=== PATIENT | female | born 1995 | race Caucasian/White ===

== ENCOUNTER 2017-11-21 06:51 | Emergency (ER) | payer OTHER, SELFPAY ==
[2017-11-21 06:53] VITALS: BP 149/94; PULSE 104; RESP 17; TEMP 36.8; O2SAT 97; BMI 33.7
--- NOTE | 2017-11-21 07:18 | CT_ITS ---
STUDY: CT ABDOMEN AND PELVIS WITHOUT CONTRAST REASON FOR EXAM: Female, 22 years old. Right lower quadrant pain and nausea. RADIATION DOSAGE (If Supplied By Facility): CTDIvol = ( 13.57 ) mGy, DLP = ( 705.27 ) mGycm TECHNIQUE: Transaxial images were obtained from the dome of the diaphragm to the symphysis pubis without oral contrast, and without intravenous contrast. Sagittal and coronal images were reconstructed. Individualized dose optimization techniques were used for this CT. COMPARISON: None. FINDINGS: The visualized lung bases are unremarkable. The visualized portions of the heart are within normal limits. Normal liver. Normal gallbladder and extrahepatic biliary system. Normal spleen. Normal pancreas. Normal bilateral adrenal glands. Normal right kidney. Normal left kidney. There is a small hiatal hernia. Normal small intestine. Normal colon. The appendix is visualized and appears normal. Normal abdominal aorta. Normal inferior vena cava. Normal retroperitoneum. Distended urinary bladder. IUD is seen within the endometrium. Small bilateral benign-appearing inguinal lymph nodes. Normal abdominal wall. Mild levoscoliosis. CT/Abdomen/Pelvis without Cont IMPRESSION: Distended urinary bladder. Electronically Signed: Jasper Clemente MD at 8:24 EDT Tel [phone], Service support ,
[2017-11-21] MEDS: 0.9% Normal Saline 1,000 ML 125 ML IV (07:27)
[2017-11-21 07:28] LABS: Absolute Lymphocyte Count 1.93 X10^3/ul (0.83-4.51); Absolute Neutrophil Count 5.2 X10^3/uL (2.0-7.7); Basophil# 0.02 X10^3/uL; Basophil% 0.3 % (0-1); Eosinophil# 0.32 X10^3/uL; Hematocrit 46.9 % (37-47); Hemoglobin 15.6 g/dl (12.0-15.0); Lymphocyte # 1.93 X10^3/ul (4.0); Lymphocyte % 24.3 % (19-41); Mean Corp Hgb Conc 33.3 g/gl (32-36); Mean Corpuscular Hgb 30.2 pg (27.0-32.0); Mean Corpuscular Volume 90.9 fL (81-99); Mean Platelet Vol. 11.3 fl (6.2-12.0); Monocyte# 0.49 X10^3/uL; Monocyte% 6.2 % (0-10); Neutrophil # 5.16 X10^3/uL (2.7-7.7); Neutrophil % 65.1 % (47-70); Platelet Count 219 K/mm3 (150-450); RBC Distribution Width CV 12.5 % (11.6-14.6); RBC Distribution Width SD 41.5 fl (35.1-43.9); Red Blood Count 5.16 M/mm3 (4.2-5.4); White Blood Count 7.9 K/mm3 (4.4-11.0)
[2017-11-21 07:33] LABS: POSITIVE COUNT NO; POSITIVE DIFFERENTIAL NO; POSITIVE MORPHOLOGY NO
[2017-11-21 07:40] LABS: ALB/GLOB Ratio 1.1 RATIO (0.9-2.4); AST(SGOT) 14 U/L (15-37); Alanine Aminotransfer ALT/SGPT 23 U/L (13-56); Albumin, Serum 4.1 g/dL (3.2-5.0); Alkaline Phosphatase 92 U/L (45-117); Anion Gap 8 (5-15); BUN 11 mg/dL (7-18); BUN/Creat Ratio 18.7 RATIO (10-20); Calcium,Total 8.7 mg/dL (8.5-10.1); Chloride 104 mmol/L (98-107); Creatinine, Serum 0.59 mg/dL (0.55-1.02); EST Glomerular Filtration Rate 134 mL/min (>60); Est Glom Filt Rate - Afr Amer 162 mL/min (>60); Estimated Creatinine Clearance 138.83 ml/min; Globulin 3.7 g/dL (2.2-4.2); Glucose 102 mg/dL (74-106); Protein, Total 7.8 g/dL (6.4-8.2); Sodium Level 139 mmol/L (136-145)
[2017-11-21 07:47] LABS: Pregnancy, Serum, hCG Quali. NEGATIVE Negative (0-9 Nonpreg)
[2017-11-21 08:51] LABS: Bacteria 0 SEEN /hpf (None Seen); Mucous, Urine 0 SEEN /hpf (<or=2+); Red Blood Cells-Urine 0 SEEN /hpf (0-5); White Blood Cells 0 SEEN /hpf (0-5)
[2017-11-21 08:52] LABS: Color, Urine Straw (Yellow); Glucose, Dipstick Normal (Normal); Ketone-Dipstick Negative (Negative); Leukocyte Esterase-Dipstick Negative /ul (Negative); Nitrite-Dipstick Negative (Negative); Occult Blood-Urine Negative /ul (Negative); Protein-Dipstick Negative (Negative); Urine Bilirubin Dipstick Negative (Negative); Urine Clarity Sl. Cloudy (Clear); Urine Urobilinogen Normal (Normal)
[2017-11-21 08:58] LABS: Squamous Epithelial Cells - UA 0-5 SEEN /hpf (5-10)
--- NOTE | 2017-11-21 09:26 | ED.DCSUM_ITS ---
- ER Visit Summary Date of Service: 11/21/17 Chief Complaint: [Abdominal pain] History of Present Illness: The patient is a 22 F [presents to the emergency department with abdominal pain that started initially last evening and was mild. Patient states the pain more severe this morning and she rates her pain a 3 out of 4 currently. Patient has exacerbated patients of the pain intermittently she describes a sharp and stabbing. Patient was able to eat some food this morning and the food did not seem to affect the pain at all. Patient had some nausea but no vomiting. Patient denies any fever or urinary symptoms. Patient does not believe she is and does not have regular periods. Patient does have an IUD.] Physical Examination: [HEENT-PERRLA, EOMI. Cranial nerves II through XII grossly intact. TMs clear. Mucous membranes moist. No adenopathy. Cardiovascular-regular rate and rhythm without murmur or ectopy Lungs-clear to auscultation, chest wall stable without crepitus or subcu emphysema Abdomen-normoactive bowel sounds, soft. Patient has tenderness over the right lower quadrant with some guarding. There is no rebound, rigidity, or perineal signs. Extremities-intact ?4, normal range of motion, normal pulses, atraumatic] Test Results: [CBC with differential showed a white count 7.9, hemoglobin 15.6, hematocrit 47, platelets 319. Chemistries were normal. LFTs were normal. Urinalysis were normal. HCG was negative. CT flank showed nothing acute. Appendix was visualized and appeared normal Emergency Department Course and Treatment: [Patient did not want any pain medication in the emergency department.] Treatment Plan: [Patient advised to use ibuprofen for discomfort.] Disposition: [Discharged to home in stable condition. Patient advised to follow -up with her primary care physician within the next 3-5 days. Patient to return if increasing pain, fever, vomiting, or condition should worsen in any way.] Impression: [Abdominal pain-etiology uncertain] This note was generated with [employer] dictation software. It may contain incorrect words, spelling, and punctuation that were not noted in review of the chart prior to signing ED Disposition - Plan for ED Patient: Chief Complaint: Abd Pain Referrals: Yee Bustamante MD [Primary Care Provider] -
--- NOTE | 2017-11-21 09:26 | ED.DEP ---
ED Disposition - Plan for ED Patient: Chief Complaint: Abd Pain Instructions: ED Abdominal Pain Unkn Cause Referrals: Yee Bustamante MD [Primary Care Provider] - 3-5 Days
[2017-11-21 09:33] VITALS: BP 110/63; PULSE 69; RESP 16; O2SAT 97
== END 2017-11-21 09:34 | disposition home or self-care (01) ==
LOC: ED 07:57
PROVIDERS: Emergency Provider Emergency Medicine; Family Provider Family Medicine; PCP Family Medicine
DX: R10.31 Right lower quadrant pain (principal); Z97.5 Presence of (intrauterine) contraceptive device
CPT/HCPCS: 74176; 80053; 81001; 84703; 85025; 96360; 96361; 99284; J7030; A4216

== ENCOUNTER → 2017-12-02 12:18 | Outpatient (CLI) | payer OTHER, SELFPAY ==
--- NOTE | 2017-12-02 12:20 | US_ITS ---
STUDY: ABDOMINAL ULTRASOUND - RIGHT UPPER QUADRANT REASON FOR VISIT: Female, 22 years old. Right upper quadrant abdominal pain for two weeks. TECHNIQUE: Ultrasound evaluation of the right upper quadrant was performed with real-time and static barclay-scale imaging. TECHNICAL QUALITY: Adequate. COMPARISON: CT of the abdomen and pelvis dated November 21, 2017. FINDINGS: Liver: The liver measures 14.9 cm. There is normal echogenicity of the liver. The bile ducts are within normal limits. There is hepatic color flow. The direction of portal flow is hepatopetal. There is no demonstrated mass lesion. Gallbladder: Normal distended gallbladder. The gallbladder wall measures 2.1 mm. There is a negative sonographic Maxwell's sign. There is no pericholecystic fluid. There is a small polyp measuring 5.4 mm in greatest dimension. No gallstones are visualized. Common Bile Duct (C.B.D.): The common bile duct measures 5.1 mm. Pancreas: The pancreas is only partially visualized. The pancreatic body has a grossly normal appearance. Pancreatic head and tail are not visualized. There is normal echogenicity of the pancreas. There is no demonstrated pancreatic mass or cyst. Right Kidney: Normal size of the right kidney. The right kidney measures 11.6 x 4.1 x 4.4 cm. Normal renal cortex. The right cortex measures 1.6 cm. There is no demonstrated renal mass or cyst. There is no right hydronephrosis. US/Gallbladder IMPRESSION: 1. No sonographic evidence for acute right upper quadrant abdominal disease. 2. Small gallbladder polyp. 3. Incomplete visualization of pancreas. Electronically Signed: Akanksha Zeng MD at 12:50 EDT , Service support ,
== END ==
PROVIDERS: Family Provider Family Medicine; PCP Family Medicine; Visit Provider Family Medicine
DX: R10.11 Right upper quadrant pain (principal)
CPT/HCPCS: 76705

== ENCOUNTER → 2018-01-03 07:50 | Outpatient (CLI) | payer OTHER, SELFPAY ==
--- NOTE | 2018-01-03 07:57 | NM_ITS ---
CLINICAL: 22-year-old female with reported history of right upper quadrant abdominal pain. RADIONUCLIDE HEPATOBILIARY SCINTIGRAPHY COMPARISON: None available FINDINGS: Following the intravenous administration of 5.5 mCi of 99m Tc Mebrofenin, hepatobiliary images reveal: 1. Relatively prompt and homogeneous radiopharmaceutical concentration is noted by a normal sized liver. No parenchymal defects are identified. 2. Gallbladder activity is identified at 15 minutes post radiopharmaceutical administration. 3. Small intestinal tract is observed at 30 minutes following tracer injection. 4. Washout of the radiopharmaceutical by the hepatic parenchyma appears qualitatively normal. NM/Hepatobilliary Imaging IMPRESSION: 1. NORMAL 99m Tc Mebrofenin hepatobiliary imaging examination. A. Visualization of the gallbladder within 60 minutes post radiopharmaceutical administration excludes acute cholecystitis with 97% certitude. (Laly et al, Nucl Med Chyna Annabelle Press pg. 35, 1981). Electronically Signed: Bam Lorenzo DO at 23:05 EDT Tel , Service support ,
== END ==
PROVIDERS: Family Provider Family Medicine; PCP Family Medicine; Visit Provider Family Medicine
DX: R10.11 Right upper quadrant pain (principal)
CPT/HCPCS: 78226; A9537

== ENCOUNTER → 2018-01-23 16:49 | Outpatient (CLI) | payer OTHER, SELFPAY ==
[2018-01-23 18:17] LABS: CRP < 2.90 mg/L (0.0-3.0)
[2018-01-25 16:09] LABS: Endomysial Antibody IgA Negative (Negative)
[2018-01-26 11:10] LABS: Immunoglobulin A 290 mg/dL (87-352); t-Transglutaminase IgA <2 U/mL (0-3)
== END ==
PROVIDERS: Family Provider Family Medicine; PCP Family Medicine; Visit Provider Internal Medicine Gastroenterology
DX: R10.9 Unspecified abdominal pain (principal)
CPT/HCPCS: 36415; 82784; 83516; 86140; 86255

== ENCOUNTER → 2018-02-08 08:14 | Outpatient (CLI) | payer OTHER, SELFPAY ==
--- NOTE | 2018-02-08 08:17 | RAD_ITS ---
PROCEDURE: SMALL BOWEL SERIES DATE OF EXAMINATION: February 08, 2018.. INDICATION: Female, 23 years old. Abdominal bloating and loose bowel. PHYSICIAN: Jasper Clemente M.D. FLUOROSCOPY TIME (if supplied): (1:00) minutes/seconds TECHNIQUE: Radiographic and fluoroscopic images were taken of the small intestine following the ingestion of barium. COMPARISON: None. FINDINGS: A preliminary supine KUB was obtained. There is an unremarkable bowel gas pattern. Fecal material is present throughout the colon. The lung bases are unremarkable. The osseous structures are normal. The patient orally ingested approximately 12 ounces of thin barium Normal visualized fundus, body, and antrum of the stomach. Normal duodenal bulb, C-loop, and proximal jejunum. Normal visualized mucosal folds of the jejunum and ileum. There are no demonstrated dilatations, strictures, or masses of the small intestine. There is no mass displacement of the loops of small intestine. There is a normal motor pattern with barium reaching the colon within approximately 20 minutes. Spot films under fluoroscopic observation demonstrated a normal terminal ileum and ileocecal valve. RAD/Small Bowel Series Only IMPRESSION: Normal small bowel series. Electronically Signed: Jasper Clemente MD at 10:11 EDT Tel [phone], Service support ,
== END ==
PROVIDERS: Family Provider Family Medicine; PCP Family Medicine; Visit Provider Internal Medicine Gastroenterology
DX: R19.7 Diarrhea, unspecified (principal); R10.9 Unspecified abdominal pain
CPT/HCPCS: 74250

== ENCOUNTER → 2018-08-22 19:17 | Outpatient (CLI) | payer OTHER, SELFPAY ==
[2018-08-22 14:42] VITALS: BMI 32.4
--- OUTSIDE RECORDS SUMMARY | 2018-10-09 00:09 | XMS RPT_ITS ---
:1995 Author Organization OHIP Support Name Relationship Address Phone ROSALIE MENENDEZ Unavailable [address] + [place] [address] BARBY, JONATHAN Unavailable [address] + [place] [address] [facility] Unavailable [address] + [place] [address] ROSALIE MENENDEZ Unavailable [address] + [place] [address] BARBY, JONATHAN Unavailable [address] + [place] [address] [facility] Unavailable [address] + [place] [address] ROSALIE MENENDEZ Unavailable [address] + [place] [address] BARBY, JONATHAN Unavailable [address] + [place] [address] [facility] Unavailable [address] + [place] [address] ROSALIE MENENDEZ Unavailable [address] + [place] [address] BARBY, JONATHAN Unavailable [address] + [place] [address] [facility] Unavailable [address] + [place] [address] ROSALIE MENENDEZ Unavailable [address] + [place] [address] BARBY, JONATHAN Unavailable [address] + [place] [address] [facility] Unavailable [address] + [place] [address] ROSALIE MENENDEZ Unavailable [address] + [place] [address] BARBY, JONATHAN Unavailable [address] + [place] [address] [facility] Unavailable [address] + [place] [address] BROWN ROSALIE Unavailable [address] + [place] [address] BARBY, JONATHAN Unavailable [address] + [place] [address] [facility] Unavailable [address] + [place] [address] SHON ROSALIE Unavailable [address] [place] [address] BRABY, JONATHAN Unavailable [address] + [place] [address] [facility] Unavailable [address] + [place] [address] SHON ROSALIE Unavailable [address] [place] [address] BARBY, JONATHAN Unavailable [address] + [place] [address] [facility] Unavailable [address] + [place] [address] JOSEPH MENENDEZALD Unavailable [address] [phone] [place] [address] UE Unavailable Unavailable Unavailable SHON ROSALIE Unavailable [address] [phone] [place] [address] UE Unavailable Unavailable Unavailable Care Team Providers Name Role Phone YEE GODINEZ ([facility]) Attending Unavailable Yareli Corley Attending Unavailable Yee Bustamante Referring Unavailable Yareli Corley Attending Unavailable Yee Bustamante Primary Care Unavailable Unggloria, Monicaus Attending Unavailable Yee Bustamante Primary Care Unavailable Yareli Corley Attending Unavailable Kevin, Efewongbe Attending Unavailable Yee Bustamante Referring Unavailable Rege, Efewongbe Attending Unavailable Rege, Efewongbe Referring Unavailable Olesadiqe, Efewongbe Primary Care Unavailable Jose Moreland Attending Unavailable Jose Moreland Referring Unavailable Yee Bustamante Primary Care Unavailable Jose Moreland Attending Unavailable Schinner, Jose E Referring Unavailable Yee Bustamante Primary Care Unavailable Orion Solis Attending Unavailable Jorjerosio, Orion Referring Unavailable Yee Bustamante Primary Care Unavailable JorjerosioSilvanokinga Attending Unavailable Irma, Orion Referring Unavailable Jakeiff, Yee Primary Care Unavailable Vic Sexton Attending Unavailable Jolliff, Yee Referring Unavailable Daylinlliff, Yee Primary Care Unavailable PROBLEMS PROBLEMS DATE TYPE CONDITION / CODE ATTENDING STATUS SOURCE 09/28/2018 Unknown R19.7 - Diarrhea, Kevin, Active [facility] unspecified / [facility] R19.7(ICD-10) Hospital Repository 09/14/2018 Unknown N76.0 - Acute JoryYareli Active [place] vaginitis / Community N76.0(ICD-10) Hospital Repository 05/26/2018 Unknown J01.00 - Acute Vic Sexton Active [facility] maxillary Community sinusitis, Hospital unspecified / Repository J01.00(ICD-10) 02/08/2018 Unknown R10.9 - Orion Solis Active [facility] Unspecified Community abdominal pain / Hospital R10.9(ICD-10) Repository 01/03/2018 Unknown R10.11 - Right Jose Moreland Active [facility] upper quadrant E Community pain / Hospital R10.11(ICD-10) Repository PROCEDURES PROCEDURES No Procedure Records FoundRESULTS RESULTS INTERNAL MEDICINE Observed: 09/29/2018 Status: F Source: [place] OFFICE VISIT 1:16 PM [facility] REPOSITORY [facility] [address] [place] [address] [place] [address] OFFICE VISIT Date of Service: 09/28/18 MR#: [id number] Acct: [id number] Name: JEN DIOR [place] Rep #: [id number] : 1995 Provider: Spenser Brown MD Age/Sex: 23/F Location: [facility] [place] Status: Signed Intake Vital Signs09/28/18 Height 5 ft 6 in Intake Visit Reasons: EST PCP Chief Complaint: establish care Allergies amoxicillin Allergy (Verified 08/22/18 14:42) Anaphylaxis codeine Allergy (Verified 08/22/18 14:42) Anaphylaxis Medications Levonorgestrel [Mirena] 1 ea IY X1 11/21/17 [History Confirmed 08/22/18] Lactobacillus rhamnosus GG 5 billion cell chewable tablet PO tab 09/28/18 [History Confirmed 09/28/18] ascorbic acid (vitamin C) 500 mg capsule mg PO cap 09/28/18 [History Confirmed 09/28/18] escitalopram 5 mg tablet 5 mg PO DAILY #60 tab 09/28/18 [Rx Confirmed 09/28/18] multivitamin capsule 1 cap PO DAILY 09/28/18 [History Confirmed 09/28/18] Is last menstrual period known: No Post menopausal: No PFSH Medical History Seasonal allergies (Chronic) Back pain (Acute) Diarrhea (Chronic) Severe headache (Acute) Fatigue (Acute) Surgical History H/O breast biopsy (Acute) Family History Grandmother Breast cancer Arthritis Mother Asthma Seizures Father Migraines Social History Smoking Status: Never smoker alcohol intake: current Alcohol type: wine details: social substance use type: does not use caffeine: Yes what type of physical activity do you participate in: walking seatbelt use: always do you feel safe at home: Yes additional social history: [employer] Patient works for [employer] HPI HPI Chief Complaint: establish care Details: JEN DIOR, is a 23yo F who presents to the office today to establish care. She also has some concerns. She reports a chronic history of abnormal bowel movements. Said to have started about 10 months ago. Workup done in the past without any significant abnormality. She describes about 2 - 3 days weekly with watery bowel movements. She denies weight changes or blood in her stool. She also reports lifelong struggle with anxiety and depression. Due to stigma she has not been open to medication but is now open. She reports progressive difficulty dealing with her symptoms. She scored 12 on the PHQ 9 assessment. ROS Const Constitutional: Positive for fatigue; no weight change, body ache, chills, sleep problems, fever(s), change in appetite, snoring, frequent falls, headache(s) or excessive sweating Eyes Eyes: No change in vision, eye pain, light sensitivity or blurry vision ENT ENT: No headache(s), abnormal hearing, ear pain, tinnitus, nasal congestion, sore throat or neck pain Resp Respiratory: No snoring, cough, shortness of breath or wheezing Cardio Cardiology: No excessive sweating, chest pain with exertion, shortness of breath, dyspnea on exertion, palpitations, orthopnea or lightheadedness Gastro GI: Positive for abdominal pain, diarrhea, nausea/dyspepsia and bloating; no change in bowel habits, constipation, vomiting or cramping Genitourinary-Female: No burning urination, painful urination, urinary incontinence, urinary frequency, abnormal vaginal bleeding, pelvic pain or other Musc Musculoskeletal: No neck pain, abnormal walking, joint pain, back pain, limited range of motion, numbness or tingling Skin Skin: No redness, dry skin, itching, lesions, wounds or rash Neuro Neurology: No frequent falls, headache(s), abnormal hearing, abnormal walking, numbness, tingling, abnormal speech, dizziness or memory loss Psych Psychiatric: No change in appetite, No memory loss, Positive for anxiety, Positive for depression, No Thoughts of harming yourself/Others Endo Endocrine: Positive for fatigue; no excessive sweating, cold intolerance, increased thirst/drinking, heat intolerance, flushing or increased hunger Aller/Imm Allergy/Immunologic: No wheezing, itchy eyes, hives or seasonal allergy symptoms [place]/Lymp Hematologic/Lymphatic: No easy bleeding, easy bruising or enlarged lymph nodes Exam Const General: cooperative, no acute distress, well developed Orientation: alert, awake, oriented x3 [facility] Head: atraumatic, normal to inspection, normocephalic Ears: hearing grossly normal bilaterally Resp Effort AND Inspection: normal respiratory effort, able to speak in complete sentences Auscultation: Bilateral: Clear to Auscultation Cardio Rate: regular rate Rhythm: regular rhythm Heart Sounds: S1 normal, S2 normal GI Palpation: soft, no hepatosplenomegaly Neuro General: alert, awake, oriented x3, moves all extremities, CN's II-XI intact bilaterally Extrem General: no clubbing, cyanosis or edema Psych Appearance: grossly normal Mood: congruent mood Affect: normal affect Assessment AND Plan 1. Diarrhea R19.7 Plan Chronic. Has about 2-3 episodes weekly of watery bowel movement. Investigations done so far without any significant abnormalities. Associated fatigue. Advised to keep a food diary. FODMAP diet also discussed. Labs ordered. Follow-up with results. Orders Orders: 2. Depression with anxiety F41.8 Plan Chronic. Progressive difficulty coping with everyday activities. Occasional episodes of panic attack. Will start on Lexapro 5 mg daily. Patient is open to counseling. Follow-up in 1 month. This note was generated with Pop Up Archiveation software. It may contain incorrect words, spelling, and punctuation that were not noted in checking the note before signing. Orders Orders: Plan Detail Other Medications New: Coding Level of Care Code Off vis,new,level 4 Diagnoses Diarrhea R19.7 Depression with anxiety F41.8 09/29/18 1316 <Electronically signed by Spenser Brown MD> Date Spenser Brown MD Cosigner Signature: Date (if applicable) CC: CBC W/DIFF, AUTOMATED Collected: 09/28/2018 Status: F Source: [place] 4:33 PM [facility] REPOSITORY TYPE CODE TESTS RESULT OUT OF RANGE REFERENCE UNITS LAB L100.1000 4.4-11.0 K/mm3 Normal WBC 9.9 LAB L100.1200 4.2-5.4 M/mm3 Normal RBC 4.75 LAB L100.1300 12.0-15.0 g/dl Normal HGB 14.4 LAB L100.1400 37-47 % Normal HCT 43.6 LAB L100.1500 81-99 fL Normal MCV 91.8 LAB L100.1600 27.0-32.0 pg Normal MCH 30.3 LAB L100.1700 32-36 g/gl Normal MCHC 33.0 LAB L100.1810 11.6-14.6 % Normal RDW CV 12.7 LAB L100.1820 35.1-43.9 fl Normal RDW SD 42.5 LAB L100.1900 150-450 K/mm3 Normal PLT 236 LAB L100.2000 6.2-12.0 fl Normal MPV 11.2 LAB L100.2100 47-70 % Normal NEUT% 62.2 LAB L100.2200 19-41 % Normal LY% 28.0 LAB L100.2300 0-10 % Normal MONO% 7.5 LAB L100.2400 0-5 % Normal EO% 1.9 LAB L100.2500 0-1 % Normal BASO% 0.2 LAB L100.2550 0.0-0.9 % Normal IM GRAN % 0.200 Result Comment: IG% - Immature Granulocytes (promyelocytes, myelocytes and metamyelocytes) > 1% indicates that a LEFT SHIFT is Present. LAB L100.2620 2.0-7.7 X10 3/uL Normal Absolute Neut 6.2 LAB L100.2720 0.83-4.51 X10 3/ul Normal Absolute Lymph 2.77 Performed By: #### L100.0100 #### [facility] [address] [place], [address] COMPREHENSIVE METABOLIC Collected: 09/28/2018 Status: F Source: [facility] 4:33 PM [facility] REPOSITORY TYPE CODE TESTS RESULT OUT OF RANGE REFERENCE UNITS LAB L501.0100 74-106 mg/dL Normal GLU 86 Result Comment: Please note revised GLUCOSE reference range effective 2017. LAB L501.1000 7-18 mg/dL Normal BUN 11 LAB L501.1100 0.55-1.02 mg/dL Normal CREAT,SERUM 0.55 Result Comment: The validity of the calculated GFR AND GFRAA in patients over 70 years has not been determined. Clinical correlation is essential. LAB L501.1110 >60 mL/min Normal EST GFR 143 Result Comment: Non- GFR Calc LAB L501.1115 >60 mL/min Normal EST GFR - AA 173 Result Comment: GFR Calc LAB L501.1300 10-20 RATIO Normal BUN/CRE 19.9 LAB L501.1500 6.4-8.2 g/dL T Normal PROT 7.7 LAB L501.1800 3.2-5.0 g/dL Normal ALB 4.2 LAB L501.1950 2.2-4.2 g/dL Normal GLOB 3.5 LAB L501.2000 0.9-2.4 RATIO Normal A/G 1.2 LAB L501.2200 8.5-10.1 mg/dL CA Normal 8.8 LAB L501.4100 15-37 U/L Normal AST 15 LAB L501.4305 45-117 U/L Normal ALK P 78 LAB L501.4405 13-56 U/L Normal ALT 26 LAB L501.4600 0.20-1.00 mg/dL T Normal BILI 0.60 LAB L501.5300 136-145 mmol/L NA Normal 139 LAB L501.5600 3.5-5.1 mmol/L K Normal 3.8 LAB L501.5900 98-107 mmol/L CL Normal 106 LAB L501.6100 21.0-32.0 mmol/L Normal CO2 24.0 LAB L501.6200 5-15 Normal GAP 9 Performed By: #### L500.4050, L501.9520, L506.0400 #### [facility] [address] [facility] [place], [address] THYROID STIM HORMONE Collected: 09/28/2018 Status: F Source: [place] (TSH) 4:33 PM [facility] REPOSITORY TYPE CODE TESTS RESULT OUT OF RANGE REFERENCE UNITS LAB L501.9520 0.358-3.74 uIU/mL Normal TSH 1.19 Performed By: #### L500.4050, L501.9520, L506.0400 #### [facility] [address] [facility] [place], [address] T4 FREE DIRECT Collected: 09/28/2018 Status: F Source: [place] 4:33 PM [facility] REPOSITORY TYPE CODE TESTS RESULT OUT OF RANGE REFERENCE UNITS LAB L506.0400 0.76-1.46 ng/dL Normal T4 FREE 1.06 DIRECT Performed By: #### L500.4050, L501.9520, L506.0400 #### [facility] [address] [facility] [place], [address] Observed: 08/22/2018 Status: F Source: [place] CULTURE, GENITAL 7:18 PM [facility] COMPREHENSIVE REPOSITORY Reason for Exam: vaginal irritation Gram Stain Score = 1 Interpretation: 0-3 Normal, 4-6 Intermediate, 7-10 Positive BV Gram Stain 2+ Epithelial cells 3+ Gram positive rods No Gram negative diplococci No Yeast Like Organisms Gent Cult Comp No yeast, Gardnerella, or Neisseria isolated. ORGANISM 1: Streptococcus agalactiae (B) Amount Growth 2+ Streptococcus agalactiae (B): REACTION Ampicillin $ <=0.25 S Clindamycin $$ >=1 R Inducable Clindamycin Resistan - Linezolid $$$$ <=2 S Vancomycin $ 0.5 S (NF) indicates non-formulary drug at [facility]. Approval by Infectious Disease Specialist required before non-formulary drugs may be ordered and/or dispensed. * CLSI guidelines does not recommend testing of cephalosporins. This interpretation is deduced from Beta-lactam/penicillin results. Performed By: #### M100.1600 #### [facility] [address] [place], [address] VP CARDIOVASCULAR OFFICE VISIT Observed: 08/22/2018 Status: F Source: [place] REPORT 3:01 PM [facility] REPOSITORY [facility] [address] [place] [address] OFFICE VISIT Date of Service: 08/22/18 MR#: [id number] Acct: [id number] Name: JEN DIOR Rep #: [id number] : 1995 Provider: ROYAL Corley Age/Sex: 23/F [place] [facility] [place]: Signed Intake Vital Signs08/22/18 Height 5 ft 7 in 08/22/18 Weight: 207 lb 08/22/18 Body Mass Index (BMI) 32.4 08/22/18 Blood Pressure 130/80 H Intake Visit Reasons: DICHARGE AND ODOR Chief Complaint: vaginal odor and discharge Hospitality Internship Required: No Is patient in pain?: No Allergies amoxicillin Allergy (Verified 08/22/18 14:42) Anaphylaxis codeine Allergy (Verified 08/22/18 14:42) Anaphylaxis Medications Levonorgestrel [Mirena] 1 ea IY X1 11/21/17 [History Confirmed 08/22/18] Is last menstrual period known: No Post menopausal: No Patient : No : No PFSH Medical History Back pain (Acute) Diarrhea (Acute) Fatigue (Acute) Severe headache (Acute) Surgical History H/O breast biopsy (Acute) Family History Grandmother Breast cancer Social History Smoking Status: Never smoker alcohol intake: current Alcohol type: wine details: social substance use type: does not use caffeine: Yes what type of physical activity do you participate in: walking seatbelt use: always do you feel safe at home: Yes additional social history: [employer] Patient works for [employer] HPI DICHARGE AND ODOR: Details: JEN DIOR is a 23 year old who presents new patient for vaginal discharge with odor and slight burning X 4 days. and denies STD concerns. Has Mirena IUD X 3 years (DR. [place]). No menses with IUD. Pregancy History 0 Elective abortions Hx Para Spontaneous abortions ROS Const Constitutional: Reports system reviewed and no additional complaints, except as docu GI GI: Denies abdominal pain or change in bowel habits Exam Const General: no acute distress Nutritional Appearance: well nourished Orientation: oriented x3 External Female Exam: normal external appearance, normal appearance of the urethra Urethra: normal appearance of the urethra Speculum Exam - Vagina: vaginal erythema, abnormal vaginal discharge malodorous and barclay Speculum Exam - Cervix: normal appearance of the cervix Bimanual Exam- Vagina AND Uterus: normal bimanual exam Bimanual Exam- Adnexa, other: normal adnexae Assessment AND Plan Problems 1. Acute vaginitis N76.0 Plan CARLOS BV call only if positive Comp vaginal culture-call results. Schedule annual exam Coding Level of Care Code Off vis,new,level 3 Diagnoses Acute vaginitis N76.0 Chronicity: acute 08/22/18 1501 <Electronically signed by Yareli LUO> Date Yareli LUO Cosigner Signature: Date (if applicable) CC: URGENT CARE VISIT Observed: 05/26/2018 Status: F Source: [place] REPORT 9:07 AM [facility] Now [address] [place], [place] [address] OFFICE VISIT Date of Service: 05/26/18 MR#: [id number] Acct: [id number] Name: JEN DIOR Rep #: [id number] : 1995 Provider: Vic DELEON Age/Sex: 23/F Location: [facility] [place] Status: Signed Intake Vital Signs05/26/18 Height 5 ft 7 in Intake Visit Reasons: eye pressure Allergies amoxicillin Allergy (Verified 05/26/18 06:44) Anaphylaxis codeine Allergy (Verified 05/26/18 06:44) Anaphylaxis Medications Levonorgestrel [Mirena] 1 ea IY X1 11/21/17 [History Confirmed 05/26/18] sulfamethoxazole 800 mg-trimethoprim 160 mg tablet 1 tab PO Q12H 7 Days #14 tab 05/26/18 [Rx Confirmed 05/26/18] PFSH Medical History Back pain (Acute) Diarrhea (Acute) Fatigue (Acute) Severe headache (Acute) Family History Other Breast cancer Social History Smoking Status: Never smoker alcohol intake: current Alcohol type: wine HPI HPI Details: JEN DIOR, is a 23 F who presents to the office today for nasal congestion and sinus pressure/pain for the past 8-9 days with new onset of pain around her right eye for the past 12 hours. Patient states she has had multiple sinus infections in the past with similar type symptoms. She states that the pain is made slightly better with ibuprofen however continues to return. She denies any vision change or eye pain. She has had no fever, chills, sweats. No nausea, vomiting, diarrhea. No other associated symptoms or alleviating/aggravating factors. ROS Const Constitutional: Positive for headache(s); no fever(s), chills, night sweats or abnormal sleep pattern Eyes Eyes: No blurry vision, tunnel vision, spots in vision, light sensitivity, change in vision or visual disturbances ENT ENT: Positive for nasal congestion, sinus pressure, sinus pain, nasal discharge and headache(s); no ear pain Resp Respiratory: No cough or shortness of breath Cardio Cardiology: No shortness of breath, irregular heart rhythm or fast heart rate Neuro Neurology: Positive for headache(s); no confusion or visual disturbances Psych Psychiatric: No abnormal sleep pattern, No confusion Exam Const General: cooperative, healthy appearing [facility] Head: normal to inspection Ears: hearing grossly normal bilaterally, TM's normal bilaterally, EAC's normal Nose: nasal discharge purulent Face and sinus: sinus tenderness frontal and maxillary Mouth: oral mucosae normal Throat: abnormal tonsil bilaterally, postnasal drainage Eyes General: appearance normal, both eyes and all related structures Visual Irene: normal visual irene by confrontation Alignment and Position: alignment normal Pupils: PERRL EOM: EOM intact bilaterally Resp Effort AND Inspection: normal respiratory effort Auscultation: Bilateral: Clear to Auscultation Cardio Palpation: normal PMI Rate: regular rate Rhythm: regular rhythm Neuro General: alert, CN's II-XI intact bilaterally Psych Appearance: grossly normal Mental Status: mental status grossly normal Assessment AND Plan Problems 1. Acute non-recurrent maxillary sinusitis J01.00 Status Acute Plan Bactrim as prescribed today. Encouraged to get plenty of rest, drink lots of clear liquids, and use Tylenol or Ibuprofen (unless contraindicated) for fever and comfort. Patient also educated on other symptomatic management techniques. To be seen in 7-10 days if no improvement; sooner if worsening of symptoms. Patient advised of potential red flags and when appropriate report to the ED. Patient verbalized understanding of all the above. Medications New: Coding Level of Care Code Off vis,new,level 3 Diagnoses Acute non-recurrent maxillary sinusitis J01.00 Sinusitis location: maxillary Recurrence: non-recurrent 05/26/18 0907 <Electronically signed by Vic DELEON> Date Vic DELEON Cosigner Signature: Date (if applicable) CC: SMALL BOWEL SERIES Observed: 02/08/2018 Status: F Source: [place] 8:17 AM [facility] REPOSITORY [facility] Imaging Services [address] [place] [address] Small Bowel Series Only MR#: [id number] Acct: [id number] Name: JEN DIOR Rep #: [id number] : 1995 F 23 From: Jasper Clemente MD PCP: Yee Bustamante MD Status: REG CLI Study: Small Bowel Series Only Date of Exam: 02/08/18 Exam# [id number] Ordering Dr: Orion Solis MD PROCEDURE: SMALL BOWEL SERIES DATE OF EXAMINATION: February 08, 2018.. INDICATION: Female, 23 years old. Abdominal bloating and loose bowel. PHYSICIAN: Jasper Clemente M.D. FLUOROSCOPY TIME (if supplied): (1:00) minutes/seconds TECHNIQUE: Radiographic and fluoroscopic images were taken of the small intestine following the ingestion of barium. COMPARISON: None. FINDINGS: A preliminary supine KUB was obtained. There is an unremarkable bowel gas pattern. Fecal material is present throughout the colon. The lung bases are unremarkable. The osseous structures are normal. The patient orally ingested approximately 12 ounces of thin barium Normal visualized fundus, body, and antrum of the stomach. Normal duodenal bulb, C-loop, and proximal jejunum. Normal visualized mucosal folds of the jejunum and ileum. There are no demonstrated dilatations, strictures, or masses of the small intestine. There is no mass displacement of the loops of small intestine. There is a normal motor pattern with barium reaching the colon within approximately 20 minutes. Spot films under fluoroscopic observation demonstrated a normal terminal ileum and ileocecal valve. RAD/Small Bowel Series Only IMPRESSION: Normal small bowel series. Electronically Signed: Jasper Clemente MD at 10:11 EDT Tel [phone], Service support , CC: Yee Bustamante MD; Orion Solis Finance Manager: Signed CRP Collected: 01/23/2018 Status: F Source: [place] 4:53 PM [facility] REPOSITORY TYPE CODE TESTS RESULT OUT OF RANGE REFERENCE UNITS LAB L501.6710 0.0-3.0 mg/L Normal < 2.90 C-REACTIVE PROT Result Comment: C-Reactive Protein (CRP) provides useful information for the diagnosis, therapy and monitoring of inflammatory processes and associated diseases. For the evaluation of Relative Risk for Cardiovascular Disease, a High Sensitivity CRP (HSCRP) should be ordered. Performed By: #### L501.6710 #### [facility] [address] [place], [address] CELIAC DISEASE Collected: 01/23/2018 Status: F Source: [place] PROFILE 4:53 PM [facility] REPOSITORY TYPE CODE TESTS RESULT OUT OF RANGE REFERENCE UNITS LAB L3200.1400 87-352 mg/dL Normal IMMUNO A 290 Result Comment: Performed at: - [facility] [id number] Security Services Manager: Orion Schafer PhD, Phone: [phone] LAB L3846.7881 0-3 U/mL Normal tTG IGA <2 Result Comment: Negative 0 - 3 Weak Positive 4 - 10 Positive >10 Tissue Transglutaminase (tTG) has been identified as the endomysial antigen. Studies have demonstr- ated that endomysial IgA antibodies have over 99% specificity for gluten sensitive enteropathy. LAB L3410.2975 Negative Normal ENDOMYSIAL IGA Negative Performed By: #### L3410.2400 #### [facility] (refer to report for specific site) refer to report for address and phone number PROGRESS Observed: 01/10/2018 Status: COMPLETED Source: [place] 3:37 PM [facility] [place] REPOSITORY HNO ID: [id number] Author: Yee Godinez Service: (none) Author Type: Nurse Practitioner Type: Progress Notes Filed: 01/10/2018 5:01 PM Note Text: Jen Dior is a 22 year old female who presents for problem visit Problems with Mirena HPI: Been evaluated by PCP for nausea, diarrhea, abdominal pain entire lower abdomen extending to right side and RUQ. Has had symptoms x 1.[address], US of gallbladder and HIDA scan - all negative. Pain is not cyclic. Pain increases after eating at times or drinking coffee. Treated with heartburn with omeprazole x 2 weeks with no relief of pain. 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 Has also been considering having Mirena removed due to mood changes and possible . Denies vaginal discharge, odor, itching. PAST MEDICAL HISTORY Diagnosis Date - NEGATIVE MEDICAL HISTORY PAST SURGICAL HISTORY Procedure Laterality Date - BREAST BIOPSY W/ULTRASOUND GUIDANCE Right 08/06/15 U/S right breast bx x 2 - INSERTION OF IUD 08/28/2015 FAMILY HISTORY Problem Relation Age of Onset - Breast Cancer Maternal Grandmother - Breast Cancer Paternal Grandmother - Asthma Mother - Seizures Mother - Heart Father all organs flipped on oppisite sides Social History Marital status: Spouse name: Years of education: Number of children: Social History Main Topics Smoking status: Never Smoker Smokeless tobacco: Never Used Alcohol use: Yes Comment: rare Drug use: No Sexual activity: Not Currently control/protection: IUD Current Outpatient Prescriptions: levonorgestrel (MIRENA) 20 mcg/24 hr (5 years) IUD Inserted in office misoprostol (CYTOTEC) 200 mcg tablet Take 1 tablet by mouth every 6 hours as needed. No current facility-administered medications for this visit. Allergies As of Date: 01/10/2018 Allergen Noted Reaction AMOXICILLIN 07/14/2015 Anaphylaxis CODEINE 07/14/2015 Anaphylaxis Fully Assessed 01/10/2018 REVIEW OF SYSTEMS Abdomen: See HPI. No bloating, early satiety, indigestion, or increased flatulence. No abdominal pain, vomiting, or constipation. Bladder: No dysuria, gross hematuria, urinary frequency, urinary urgency, or incontinence. Denies family history of clotting disorders. Denies personal history of DVT, CVD. Positive for migraine with aura. Non-smoker. Allergies and current medication updated:Yes EXAM: BP 100/58 Wt 202 lb 9.6 oz (91.9kg) GENERAL: pleasant, female in no apparent distress. Tearful at times. CHEST: Normal inspiratory effort ABDOMEN: soft, no masses and Mild tenderness in Generalized NEURO: alert and oriented x3,exam grossly non-focal ASSESSMENT/PLAN: 1. Generalized abdominal pain - ICD9: 789.07, ICD10: R10.84 - Keep appointment with gastroenterology - Discussed Mirena most likely not being the cause of symptoms. Recommend leaving Mirena in place until gastroenterology consult and testing. Discussed need to pre-certify Mirena removal if she so chooses. 2. General counseling and advice for contraceptive management - ICD9: V25.09, ICD10: Z30.09 Has history of migraine with aura - discussed contraceptive options of IUD, POPS, and Nexplanon. Given verbal and written information. Follow-up as needed and schedule annual. Yee Godinez APRN.CNP CNOV Observed: 01/10/2018 Status: COMPLETED Source: [place] 3:30 PM [facility] REPOSITORY Office Visit (WOOB) BARBYJEN Lyons ([id number]) 1995 F Date Time Provider Department 01/10/18 3:30 PM YEE GODINEZ (ANDRES) WOOB During your visit today, we recorded the following information about you: Blood pressure Weight 100/58 91.9 kg Yee Godinez APRN.CNP 01/10/2018 5:01 PM Signed Jen Lyons Barby is a 22 year old female who presents for problem visit Problems with Mirena HPI: Been evaluated by PCP for nausea, diarrhea, abdominal pain entire lower abdomen extending to right side and RUQ. Has had symptoms x 1.[address], US of gallbladder and HIDA scan - all negative. Pain is not cyclic. Pain increases after eating at times or drinking coffee. Treated with heartburn with omeprazole x 2 weeks with no relief of pain. 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 Has also been considering having Mirena removed due to mood changes and possible . Denies vaginal discharge, odor, itching. PAST MEDICAL HISTORY Diagnosis Date - NEGATIVE MEDICAL HISTORY PAST SURGICAL HISTORY Procedure Laterality Date - BREAST BIOPSY W/ULTRASOUND GUIDANCE Right 08/06/15 U/S right breast bx x 2 - INSERTION OF IUD 08/28/2015 FAMILY HISTORY Problem Relation Age of Onset - Breast Cancer Maternal Grandmother - Breast Cancer Paternal Grandmother - Asthma Mother - Seizures Mother - Heart Father all organs flipped on oppisite sides Social History Marital status: Spouse name: Years of education: Number of children: Social History Main Topics Smoking status: Never Smoker Smokeless tobacco: Never Used Alcohol use: Yes Comment: rare Drug use: No Sexual activity: Not Currently control/protection: IUD Current Outpatient Prescriptions: levonorgestrel (MIRENA) 20 mcg/24 hr (5 years) IUD Inserted in office misoprostol (CYTOTEC) 200 mcg tablet Take 1 tablet by mouth every 6 hours as needed. No current facility-administered medications for this visit. Allergies As of Date: 01/10/2018 Allergen Noted Reaction AMOXICILLIN 07/14/2015 Anaphylaxis CODEINE 07/14/2015 Anaphylaxis Fully Assessed 01/10/2018 REVIEW OF SYSTEMS Abdomen: See HPI. No bloating, early satiety, indigestion, or increased flatulence. No abdominal pain, vomiting, or constipation. Bladder: No dysuria, gross hematuria, urinary frequency, urinary urgency, or incontinence. Denies family history of clotting disorders. Denies personal history of DVT, CVD. Positive for migraine with aura. Non-smoker. Allergies and current medication updated:Yes EXAM: BP 100/58 Wt 202 lb 9.6 oz (91.9kg) GENERAL: pleasant, female in no apparent distress. Tearful at times. CHEST: Normal inspiratory effort ABDOMEN: soft, no masses and Mild tenderness in Generalized NEURO: alert and oriented x3,exam grossly non-focal ASSESSMENT/PLAN: 1. Generalized abdominal pain - ICD9: 789.07, ICD10: R10.84 - Keep appointment with gastroenterology - Discussed Mirena most likely not being the cause of symptoms. Recommend leaving Mirena in place until gastroenterology consult and testing. Discussed need to pre-certify Mirena removal if she so chooses. 2. General counseling and advice for contraceptive management - ICD9: V25.09, ICD10: Z30.09 Has history of migraine with aura - discussed contraceptive options of IUD, POPS, and Nexplanon. Given verbal and written information. Follow-up as needed and schedule annual. Yee Godinez APRN.GAMEPLAY ENGINEER Referring Provider: SELF [200] Allergies As of Date: 01/10/2018 Noted Allergy Reaction AMOXICILLIN 07/14/2015 10 - Anaphylaxis Comments: Was on codine at same time and unsure which caused the reaction CODEINE 07/14/2015 10 - Anaphylaxis Date Reviewed: 01/10/2018 Reviewed by: Yee Godinez - Fully Assessed Reason for Visit: Discussion [813] Cmt: issues potentially related to IUD Primary Visit Diagnosis:Generalized abdominal pain [R10.84] Other Visit Diagnosis:General counseling and advice for contraceptive management [Z30.09] Prescriptions as of 01/10/2018 Sig: LEVONORGESTREL 20 MCG/24 HR (* Inserted in office Problem List As Of Date 01/10/2018 Noted Resolved Lump or mass in breast [N63.0] INVALID FOR* Medications Discontinued During This Encounter misoprostol (CYTOTEC) 200 mcg tablet 2 ta* 0 07/14/2015 01/10/2018 Class: Print RX Route: ORAL Sig: Take 1 tablet by mouth every 6 hours as needed. Disc: Reason for discontinue is not on file. Encounter Status:Closed by YEE GODINEZ on 01/10/18 HEPATOBILLIARY IMAGING Observed: 01/03/2018 Status: F Source: [place] 7:58 AM [facility] REPOSITORY [facility] Imaging Services [address] [place] [address] Hepatobilliary Imaging MR#: [id number] Acct: [id number] Name: BARBYFIGUEROALUIS EDUARDO Lyons Rep #: [id number] : 1995 F 22 From: Bam Lorenzo DO PCP: Yee Bustamante MD Status: REG CLI Study: Hepatobilliary Imaging Date of Exam: 01/03/18 Exam# [id number] Ordering Dr: Jose Moreland MD CLINICAL: 22-year-old female with reported history of right upper quadrant abdominal pain. RADIONUCLIDE HEPATOBILIARY SCINTIGRAPHY COMPARISON: None available FINDINGS: Following the intravenous administration of 5.5 mCi of 99m Tc Mebrofenin, hepatobiliary images reveal: 1. Relatively prompt and homogeneous radiopharmaceutical concentration is noted by a normal sized liver. No parenchymal defects are identified. 2. Gallbladder activity is identified at 15 minutes post radiopharmaceutical administration. 3. Small intestinal tract is observed at 30 minutes following tracer injection. 4. Washout of the radiopharmaceutical by the hepatic parenchyma appears qualitatively normal. NM/Hepatobilliary Imaging IMPRESSION: 1. NORMAL 99m Tc Mebrofenin hepatobiliary imaging examination. A. Visualization of the gallbladder within 60 minutes post radiopharmaceutical administration excludes acute cholecystitis with 97% certitude. (Laly et al, Nucl Med Chyna Annabelle Press pg. 35, 1981). Electronically Signed: Bam Lorenzo DO at 23:05 EDT Tel , Service support , CC: Yee Bustamante MD; Jose Moreland MD Finance Manager: Signed GALLBLADDER Observed: 12/02/2017 Status: F Source: [place] 12:20 PM [facility] REPOSITORY [facility] Imaging Services [address] [place] [address] Gallbladder MR#: [id number] Acct: [id number] Name: JEN DIOR Rep #: [id number] : 1995 F 22 From: Akanksha Zeng MD PCP: Yee Bustamante MD Status: REG CLI Study: Gallbladder Date of Exam: 12/02/17 Exam# [id number] Ordering Dr: Jose Moreland MD STUDY: ABDOMINAL ULTRASOUND - RIGHT UPPER QUADRANT REASON FOR VISIT: Female, 22 years old. Right upper quadrant abdominal pain for two weeks. TECHNIQUE: Ultrasound evaluation of the right upper quadrant was performed with real-time and static barclay-scale imaging. TECHNICAL QUALITY: Adequate. COMPARISON: CT of the abdomen and pelvis dated November 21, 2017. FINDINGS: Liver: The liver measures 14.9 cm. There is normal echogenicity of the liver. The bile ducts are within normal limits. There is hepatic color flow. The direction of portal flow is hepatopetal. There is no demonstrated mass lesion. Gallbladder: Normal distended gallbladder. The gallbladder wall measures 2.1 mm. There is a negative sonographic Maxwell's sign. There is no pericholecystic fluid. There is a small polyp measuring 5.4 mm in greatest dimension. No gallstones are visualized. Common Bile Duct (C.B.D.): The common bile duct measures 5.1 mm. Pancreas: The pancreas is only partially visualized. The pancreatic body has a grossly normal appearance. Pancreatic head and tail are not visualized. There is normal echogenicity of the pancreas. There is no demonstrated pancreatic mass or cyst. Right Kidney: Normal size of the right kidney. The right kidney measures 11.6 x 4.1 x 4.4 cm. Normal renal cortex. The right cortex measures 1.6 cm. There is no demonstrated renal mass or cyst. There is no right hydronephrosis. US/Gallbladder IMPRESSION: 1. No sonographic evidence for acute right upper quadrant abdominal disease. 2. Small gallbladder polyp. 3. Incomplete visualization of pancreas. Electronically Signed: Akanksha Zeng MD at 12:50 EDT , Service support , CC: Yee Bustamante MD; Jose Moreland MD Finance Manager: Signed DISCHARGE INSTRUCTION Observed: 11/21/2017 Status: F Source: [place] 9:27 AM [facility] Medical Records Department [address] [place] [address] Discharge Instruction 11/21/17925 MR#: [id number] Acct: [id number] Name: JEN DIOR Rep #: [id number] : 1995 22 From: Maryjo Upton DO PCP: Yee Bustamante MD Status: REG ER ED Disposition - Plan for ED Patient: Chief Complaint: Abd Pain Instructions: ED Abdominal Pain Unkn Cause Referrals: Yee Bustamante MD [Primary Care Provider] - 3-5 Days What to do if you have Problems For any increased pain, shortness of breath, bleeding, nausea or vomiting, chest pain, or any unexpected problems, contact your Primary Care Provider. Call [facility] ([phone]) or report to the closest Emergency Room. Call 911 if necessary. 11/21/17926 <Electronically signed by Maryjo Upton DO> Date Maryjo Upton DO Cosigner Signature (If Indicated): Date CC: Yee Bustamante MD EMERGENCY DEPARTMENT Observed: 11/21/2017 Status: F Source: [place] SUMMARY 9:26 AM [facility] REPOSITORY [facility] Medical Records Department [address] [place] [address] Emergency Department Summary 11/21/17 0922 MR#: [id number] Acct: [id number] Name: JEN DIOR Rep #: [id number] : 1995 22 From: Maryjo Upton DO PCP: Yee Bustamante MD Status: REG ER - ER Visit Summary Date of Service: 11/21/17 Chief Complaint: [Abdominal pain] History of Present Illness: The patient is a 22 F [presents to the emergency department with abdominal pain that started initially last evening and was mild. Patient states the pain more severe this morning and she rates her pain a 3 out of 4 currently. Patient has exacerbated patients of the pain intermittently she describes a sharp and stabbing. Patient was able to eat some food this morning and the food did not seem to affect the pain at all. Patient had some nausea but no vomiting. Patient denies any fever or urinary symptoms. Patient does not believe she is and does not have regular periods. Patient does have an IUD.] Physical Examination: [HEENT-PERRLA, EOMI. Cranial nerves II through XII grossly intact. TMs clear. Mucous membranes moist. No adenopathy. Cardiovascular-regular rate and rhythm without murmur or ectopy Lungs-clear to auscultation, chest wall stable without crepitus or subcu emphysema Abdomen-normoactive bowel sounds, soft. Patient has tenderness over the right lower quadrant with some guarding. There is no rebound, rigidity, or perineal signs. Extremities-intact 4, normal range of motion, normal pulses, atraumatic] Test Results: [CBC with differential showed a white count 7.9, hemoglobin 15.6, hematocrit 47, platelets 319. Chemistries were normal. LFTs were normal. Urinalysis were normal. HCG was negative. CT flank showed nothing acute. Appendix was visualized and appeared normal Emergency Department Course and Treatment: [Patient did not want any pain medication in the emergency department.] Treatment Plan: [Patient advised to use ibuprofen for discomfort.] Disposition: [Discharged to home in stable condition. Patient advised to follow-up with her primary care physician within the next 3-5 days. Patient to return if increasing pain, fever, vomiting, or condition should worsen in any way.] Impression: [Abdominal pain-etiology uncertain] This note was generated with [employer] dictation software. It may contain incorrect words, spelling, and punctuation that were not noted in review of the chart prior to signing ED Disposition - Plan for ED Patient: Chief Complaint: Abd Pain Referrals: Yee Bustamante MD [Primary Care Provider] - What to do if you have Problems For any increased pain, shortness of breath, bleeding, nausea or vomiting, chest pain, or any unexpected problems, contact your Primary Care Provider. Call [facility] ([phone]) or report to the closest Emergency Room. Call 911 if necessary. 11/21/17 0926 <Electronically signed by Maryjo Upton DO> Date Maryjo Upton DO Cosigner Signature (If Indicated): Date CC: Yee Bustamante MD URINALYSIS, COMPLETE Collected: 11/21/2017 Status: F Source: [place] 8:44 AM [facility] REPOSITORY Order Comment: Order Date: 11/21/17 How was Urine Obtained? CLEAN CATCH TYPE CODE TESTS RESULT OUT OF RANGE REFERENCE UNITS LAB L400.3000 Yellow COLOR Normal Straw LAB L400.3050 Clear Normal CLARITY Sl. Cloudy LAB L400.3200 Normal mg/dl Normal GLUCOSE, UR Normal LAB L400.3300 Negative mg/dL Normal BILIRUBIN URINE Negative LAB L400.3400 Negative mg/dl Normal KETONE UR Negative LAB L400.3465 1.002-1.030 Normal SP.GR. DIPSTX 1.010 LAB L400.3550 5.0 - 8.0 pH UR Normal 7.0 LAB L400.3600 Negative mg/dl PROT Normal DIPSTX Negative LAB L400.3700 Normal mg/dl Normal UROBILI Normal LAB L400.3750 Negative Normal NITRITE UR Negative LAB L400.3780 Negative /ul Normal OCCULT BLOOD-UR Negative LAB L400.3800 Negative /ul LEUK Normal ESTERASE Negative LAB L400.4050 0-5 /hpf WBC 0 Normal SEEN LAB L400.4100 0-5 /hpf 0 Normal RBC-UA SEEN LAB L400.4150 5-10 /hpf SQUAM Normal EPI 0-5 SEEN LAB L400.4300 None Seen /hpf 0 Normal BACTERIA SEEN LAB L400.4350 <or=2+ /hpf 0 Normal MUCUS, URINE SEEN Performed By: #### L400.0001 #### [facility] [address] [place], [address] ABDOMEN/PELVIS WITHOUT Observed: 11/21/2017 Status: F Source: [place] CONT 7:19 AM [facility] REPOSITORY [facility] Imaging Services [address] [place] [address] Abdomen/Pelvis without Cont MR#: [id number] Acct: [id number] Name: JEN DIOR Rep #: [id number] : 1995 F 22 From: Jasper Clemente MD PCP: Yee Bustamante MD Status: REG ER Study: Abdomen/Pelvis without Cont Date of Exam: 11/21/17 Exam# [id number] Ordering Dr: Maryjo Upton DO STUDY: CT ABDOMEN AND PELVIS WITHOUT CONTRAST REASON FOR EXAM: Female, 22 years old. Right lower quadrant pain and nausea. RADIATION DOSAGE (If Supplied By Facility): CTDIvol = ( 13.57 ) mGy, DLP = ( 705.27 ) mGycm TECHNIQUE: Transaxial images were obtained from the dome of the diaphragm to the symphysis pubis without oral contrast, and without intravenous contrast. Sagittal and coronal images were reconstructed. Individualized dose optimization techniques were used for this CT. COMPARISON: None. FINDINGS: The visualized lung bases are unremarkable. The visualized portions of the heart are within normal limits. Normal liver. Normal gallbladder and extrahepatic biliary system. Normal spleen. Normal pancreas. Normal bilateral adrenal glands. Normal right kidney. Normal left kidney. There is a small hiatal hernia. Normal small intestine. Normal colon. The appendix is visualized and appears normal. Normal abdominal aorta. Normal inferior vena cava. Normal retroperitoneum. Distended urinary bladder. IUD is seen within the endometrium. Small bilateral benign-appearing inguinal lymph nodes. Normal abdominal wall. Mild levoscoliosis. CT/Abdomen/Pelvis without Cont IMPRESSION: Distended urinary bladder. Electronically Signed: Jasper Clemente MD at 8:24 EDT Tel [phone], Service support , CC: Yee Bustamante MD; Maryjo Upton DO Finance Manager: Signed PROGRESS Observed: 11/21/2017 Status: COMPLETED Source: [place] 7:01 AM [facility] REPOSITORY HNO ID: [id number] Author: Beto (Restuarant Crew Worker) Steven Service: (none) Author Type: Nurse Practitioner Type: Progress Notes Filed: 11/21/2017 7:02 AM Note Text: Subjective HPI ROS Objective Physical Exam CBC W/DIFF, AUTOMATED Collected: 11/21/2017 Status: F Source: [place] 7:00 AM [facility] REPOSITORY TYPE CODE TESTS RESULT OUT OF RANGE REFERENCE UNITS LAB L100.1000 4.4-11.0 K/mm3 Normal WBC 7.9 LAB L100.1200 4.2-5.4 M/mm3 Normal RBC 5.16 LAB L100.1300 12.0-15.0 g/dl High HGB 15.6 LAB L100.1400 37-47 % Normal HCT 46.9 LAB L100.1500 81-99 fL Normal MCV 90.9 LAB L100.1600 27.0-32.0 pg Normal MCH 30.2 LAB L100.1700 32-36 g/gl Normal MCHC 33.3 LAB L100.1810 11.6-14.6 % Normal RDW CV 12.5 LAB L100.1820 35.1-43.9 fl Normal RDW SD 41.5 LAB L100.1900 150-450 K/mm3 Normal PLT 219 LAB L100.2000 6.2-12.0 fl Normal MPV 11.3 LAB L100.2100 47-70 % Normal NEUT% 65.1 LAB L100.2200 19-41 % Normal LY% 24.3 LAB L100.2300 0-10 % Normal MONO% 6.2 LAB L100.2400 0-5 % Normal EO% 4.0 LAB L100.2500 0-1 % Normal BASO% 0.3 LAB L100.2550 0.0-0.9 % Normal IM GRAN % 0.100 Result Comment: IG% - Immature Granulocytes (promyelocytes, myelocytes and metamyelocytes) > 1% indicates that a LEFT SHIFT is Present. LAB L100.2620 2.0-7.7 X10 3/uL Normal Absolute Neut 5.2 LAB L100.2720 0.83-4.51 X10 3/ul Normal Absolute Lymph 1.93 Performed By: #### L100.0100 #### [facility] [address] [place], [address] COMPREHENSIVE METABOLIC Collected: 11/21/2017 Status: F Source: [facility] 7:00 AM [facility] REPOSITORY TYPE CODE TESTS RESULT OUT OF RANGE REFERENCE UNITS LAB L501.0100 74-106 mg/dL Normal GLU 102 Result Comment: Fasting Glucose result from 100 to 125 mg/dL suggests IMPAIRED HOMEOSTASIS per A.D.A. criteria. Please note revised GLUCOSE reference range effective 2017. LAB L501.1000 7-18 mg/dL Normal BUN 11 LAB L501.1100 0.55-1.02 mg/dL Normal CREAT,SERUM 0.59 Result Comment: The validity of the calculated GFR AND GFRAA in patients over 70 years has not been determined. Clinical correlation is essential. LAB L501.1110 >60 mL/min Normal EST GFR 134 Result Comment: Non- GFR Calc LAB L501.1115 >60 mL/min Normal EST GFR - AA 162 Result Comment: GFR Calc LAB L501.1255 ml/min Normal Estimated CRCL 138.83 LAB L501.1300 10-20 RATIO BUN/CRE Normal 18.7 LAB L501.1500 6.4-8. g/dL 2 T PROT Normal 7.8 LAB L501.1800 3.2-5. g/dL 0 ALB Normal 4.1 LAB L501.1950 2.2-4. g/dL 2 GLOB Normal 3.7 LAB L501.2000 0.9-2. RATIO 4 A/G Normal 1.1 LAB L501.2200 8.5-10 mg/dL .1 CA Normal 8.7 LAB L501.4100 15-37 U/L Low AST 14 LAB L501.4305 45-117 U/L ALK P Normal 92 LAB L501.4405 13-56 U/L ALT Normal 23 Result Comment: Please note revised ALT reference range effective 2017. LAB L501.4600 0.20-1.00 mg/dL Normal T BILI 0.40 LAB L501.5300 136-145 mmol/L Normal NA 139 LAB L501.5600 3.5-5.1 mmol/L Normal K 4.0 LAB L501.5900 98-107 mmol/L Normal CL 104 LAB L501.6100 21.0-32.0 mmol/L Normal CO2 27.0 LAB L501.6200 5-15 Normal GAP 8 Performed By: #### L500.4050 #### [facility] [address] [place], [place], [id number] ,SERUM,HCG QUALI. Collected: Status: F Source: [place] 11/21/2017 7:00 AM [facility] REPOSITORY TYPE CODE TESTS RESULT OUT OF REFERENCE UNITS RANGE LAB L700.7000 0-9 Nonpreg Negative Normal HCGSQUAL NEGATIVE LAB L700.6700 =>Qualitative mIU/mL Normal HCG Qual < 1 triggr Performed By: #### L700.6800 #### [facility] [address] [place], [place], [address] CNOV Observed: 11/21/2017 Status: COMPLETED Source: [place] 6:45 AM [facility] REPOSITORY Office Visit (WSTR) JEN DIOR ([id number]) 1995 F Date Time Provider Department 11/21/17 6:45 AM [facility] During your visit today, we recorded the following information about you: Beto Casanova CNP 11/21/2017 7:02 AM Signed Subjective HPI ROS Objective Physical Exam Referring Provider: SELF [200] Allergies As of Date: 11/21/2017 Noted Allergy Reaction AMOXICILLIN 07/14/2015 10 - Anaphylaxis Comments: Was on codine at same time and unsure which caused the reaction CODEINE 07/14/2015 10 - Anaphylaxis Date Reviewed: 01/14/2017 Reviewed by: Kendy Maxwell (Musical Instrument Maker Or Repairer) ANDRES Rodriguez - Fully Assessed Primary Visit Diagnosis:APPOINTMENT CANCELLED Prescriptions as of 11/21/2017 Sig: LEVONORGESTREL 20 MCG/24 HR (* Inserted in office MISOPROSTOL 200 MCG TABLET Take 1 tablet by mouth every * Problem List As Of Date 11/21/2017 Noted Resolved Lump or mass in breast [N63.0] INVALID FOR* Encounter Status:Closed by BETO CASANOVA on 11/21/17 ALLERGIES ALLERGIES DATE TYPE / NAME / CODE REACTION SEVERITY SOURCE CODE 08/22/2018 Drug codeine/[id number] Anaphylaxis Unknown [place] Allergy/41 0(RXNORM) [facility] [id number]([facility]) Repository 08/22/2018 Drug amoxicillin/F0060 Anaphylaxis Unknown [place] Allergy/41 85224([facility]NORM[facility] [place] [id number]([facility]) Repository 07/14/2015 DRUG AMOXICILLIN ANAPHYLAXIS [address] [id number]( Repository [facility]) 07/14/2015 DRUG CODEINE ANAPHYLAXIS [address] [id number]([facility]) ENCOUNTERS ENCOUNTERS ADMIT/DISCHARGE ACCOUNT ADMITTING ENCOUNTER LOCATION SOURCE NUMBER CLASS 09/28/2018 [id number] Amb[place] [facility] ing:LAB Repository 09/28/2018/09/28/19 [id number] Ambulatory BMSBuilding:B [place] [facility] Repository 08/23/2018 [id number] Ambulatory BMSBuilding:B [place] [facility] Repository 08/22/2018 [id number] Ambulatory [facility] ing:LABSPEC Repository 08/22/2018/08/22/20 [id number] Ambulatory BMSBuilding:B [place] [facility] Repository 05/26/2018/05/26/20 [id number] Ambulatory BMSBuilding:B [place] 18 [facility] Repository 02/08/2018 [id number] Ambulatory [facility] ing:RAD Repository 01/23/2018 [id number] Ambulatory [facility] ing:MTLAB Repository 01/10/2018/01/13/20 [id number] Ambulatory [address] Repository 01/03/2018 [id number] Ambulatory [facility] Hospital ing:NM Repository 12/02/2017 [id number] Ambulatory [facility] ing:USHP Repository 11/21/2017/11/22/19 [id number] Emergency [address] ing:ED Repository 11/21/2017/11/22/19 [id number] Ambulatory [address] Repository PAYERS PAYERS ENCOUNTER GUARANTOR PAYER SUBSCRIBER SOURCE 09/28/2018 [id number] Primary AVARI L [place] Insurance:MEDICAL GRESSDOB: [facility] [id number] [facility] [address]Quq: (330) Number: Repository [phone] ) [id number] Date:[id number] [address] [place] [address]AG: 09/28/2018 Secondary NOT GIVENUNK [place] Insurance:SELF PAY [facility] Number: Effective Repository Date:2018-09-28 09/28/2018 AVARI L [id number] Primary AVARI L [place] Insurance:MEDICAL GRESSDOB: [facility] [id number] [id number]: (330) Number: Repository [phone] () [id number] Date:4611-99-20PD [address] [place] [phone]: 09/28/2018 Secondary NOT GIVENUNK [place] Insurance:SELF PAY [facility] Number: Effective Repository Date:2018-09-21 08/23/2018 AVARI L [id number] Primary AVARI L [place] Insurance:MEDICAL GRESSDOB: [facility] [id number] Hospital [address]Jxg: (330) Number: Repository [phone] () [id number] Date:7961-98-88OF [address] [place], [place] [address]WP: 08/23/2018 Secondary NOT GIVENUNK [place] Insurance:SELF PAY [facility] Number: Effective Repository Date:2018-08-23 08/22/2018 AVARI L [id number] Primary AVARI L [place] Insurance:MEDICAL GRESSDOB: [facility] [id number] Hospital [address]Usp: (330) Number: Repository [phone] () [id number] Date:4043-96-69HD [place] [id number]: 08/22/2018 Secondary NOT GIVENUNK [place] Insurance:SELF PAY [facility] Number: Effective Repository Date:2018-08-22 08/22/2018 AVARI L [id number] Primary AVARI L [place] Insurance:MEDICAL GRESSDOB: [facility] [id number] Hospital [address]Dnv: (330) Number: Repository [phone] () [id number] Date:[id number] [address] [phone]: 08/22/2018 Secondary NOT GIVENUNK [place] Insurance:SELF PAY [facility] Hospital Number: Effective Repository Date:2018-08-22 05/26/2018 AVARI L [id number] Primary AVARI L [place] Insurance:MEDICAL GRESSDOB: [facility] [id number] Hospital [address]Uyr: (330) Number: Repository [phone] () [id number] Date:7073-68-31[place] [id number]: 05/26/2018 Secondary NOT GIVENUNK [place] Insurance:SELF PAY [facility] Number: Effective Repository Date:2018-05-26 02/08/2018 AVARI L [id number] Primary AVARI L [place] Insurance:MEDICAL GRESSDOB: [facility] [id number] Hospital [address]Bmd: (330) Number: Repository [phone] () [id number] Date:9555-08-76JX[place] [id number]: 02/08/2018 Secondary NOT GIVENUNK [place] Insurance:SELF PAY [facility] Number: Effective Repository Date:2018-01-23 01/23/2018 AVARI L [id number] Primary AVARI L [place] Insurance:MEDICAL GRESSDOB: [facility] [id number] Hospital [address]Pgx: (330) Number: Repository [phone] () [id number] Date:5042-25-43UN[place] [id number]: 01/23/2018 Secondary NOT GIVENUNK [place] Insurance:SELF PAY [facility] Number: Effective Repository Date:2018-01-23 01/03/2018 AVARI L [id number] Primary [place]I L [place] Insurance:MEDICAL GRESSDOB: [facility] [id number] [facility] [address]Zah: (330) Number: Repository [phone] () [id number] Date:0224-47-76NT [address] [address]BF: 01/03/2018 Secondary NOT GIVENUNK [place] Insurance:SELF PAY [facility] Number: Effective Repository Date:2017-12-06 12/02/2017 AVARI [place] [id number] Primary AVARI L [place] Insurance:MEDICAL GRESSDOB: [facility] [id number] [facility] [address]Rre: (330) Number: Repository [phone] () [id number] Date:[id number] [address]JC: 12/02/2017 Secondary NOT GIVENUNK [place] Insurance:SELF PAY [facility] Number: Effective Repository Date:2017-12-01 11/21/2017 AVARI L [id number] Primary AVARI L [place] Insurance:MEDICAL GRESSDOB: [facility] [id number] Hospital [address]Mdf: (330) Number: Repository [phone] () [id number] Date:[id number] [address]ZA: 11/21/2017 Secondary NOT GIVENUNK [place] Insurance:SELF PAY [facility] Number: Effective Repository Date:2017-11-21
== END ==
PROVIDERS: Family Provider Family Medicine; PCP Internal Medicine; Visit Provider Nurse Practitioner Women's Health
DX: N76.0 Acute vaginitis (principal)
CPT/HCPCS: 87070; 87077; 87186; 87205

== ENCOUNTER → 2018-09-28 16:29 | Outpatient (CLI) | payer OTHER, SELFPAY ==
[2018-09-28 15:19] VITALS: BMI 33.2
[2018-09-28 17:02] LABS: Absolute Lymphocyte Count 2.77 X10^3/ul (0.83-4.51); Absolute Neutrophil Count 6.2 X10^3/uL (2.0-7.7); Basophil# 0.02 X10^3/uL; Basophil% 0.2 % (0-1); Eosinophil# 0.19 X10^3/uL; Eosinophils% 1.9 % (0-5); Hematocrit 43.6 % (37-47); Hemoglobin 14.4 g/dl (12.0-15.0); Lymphocyte # 2.77 X10^3/ul (4.0); Mean Corpuscular Hgb 30.3 pg (27.0-32.0); Mean Corpuscular Volume 91.8 fL (81-99); Mean Platelet Vol. 11.2 fl (6.2-12.0); Monocyte# 0.74 X10^3/uL; Monocyte% 7.5 % (0-10); Neutrophil # 6.16 X10^3/uL (2.7-7.7); Neutrophil % 62.2 % (47-70); Platelet Count 236 K/mm3 (150-450); RBC Distribution Width CV 12.7 % (11.6-14.6); RBC Distribution Width SD 42.5 fl (35.1-43.9); Red Blood Count 4.75 M/mm3 (4.2-5.4); White Blood Count 9.9 K/mm3 (4.4-11.0)
[2018-09-28 17:03] LABS: POSITIVE COUNT NO; POSITIVE DIFFERENTIAL NO; POSITIVE MORPHOLOGY NO
[2018-09-28 17:30] LABS: ALB/GLOB Ratio 1.2 RATIO (0.9-2.4); AST(SGOT) 15 U/L (15-37); Alanine Aminotransfer ALT/SGPT 26 U/L (13-56); Albumin, Serum 4.2 g/dL (3.2-5.0); Alkaline Phosphatase 78 U/L (45-117); Anion Gap 9 (5-15); BUN 11 mg/dL (7-18); BUN/Creat Ratio 19.9 RATIO (10-20); Calcium,Total 8.8 mg/dL (8.5-10.1); Chloride 106 mmol/L (98-107); Creatinine, Serum 0.55 mg/dL (0.55-1.02); EST Glomerular Filtration Rate 143 mL/min (>60); Est Glom Filt Rate - Afr Amer 173 mL/min (>60); Globulin 3.5 g/dL (2.2-4.2); Glucose 86 mg/dL (74-106); Potassium 3.8 mmol/L (3.5-5.1); Protein, Total 7.7 g/dL (6.4-8.2); Sodium Level 139 mmol/L (136-145); T4 Free Direct 1.06 ng/dL (0.76-1.46); Thyroid Stim Hormone (TSH) 1.19 uIU/mL (0.358-3.74)
--- OUTSIDE RECORDS SUMMARY | 2018-12-03 11:52 | XMS RPT_ITS ---
:1995 Author Organization OHIP Support Name Relationship Address Phone ROSALIE MENENDEZ Unavailable [address] + [place] [address] BARBY, JONATHAN Unavailable [address] + [place] [address] WOOCISCH Unavailable [address] + [place] [address] ROSALIE MENENDEZ Unavailable [address] + [place] [address] BARBY, JONATHAN Unavailable [address] + [place] [address] WO[facility] Unavailable [address] + [place] [address] ROSALIE MENENDEZ Unavailable [address] + [place] [address] BARBY, JONATHAN Unavailable [address] + [place] [address] [employer] Unavailable [address] + [place] [address] ROSALIE MENENDEZ Unavailable [address] + [place] [address] BARBY, JONATHAN Unavailable [address] + [place] [address] WO[place] Unavailable [address] + [place] [address] ROSALIE MENENDEZ Unavailable [address] + [place] [address] ABRBY, JONATHAN Unavailable [address] + [place] [address] WO[facility]IS[facility] Unavailable [address] + [place] [address] ROSALIE MENENDEZ Unavailable [address] + [place] [address] BARBY, JONATHAN Unavailable [address] + [place] [address] WOOCISCH Unavailable [address] [facility] [address] + [place] [address] SHON ROSALIE Unavailable [address] [place] [address] BARBY, JONATHAN Unavailable [address] + [place] [address] WOOCISCH Unavailable [address] [facility] [address] + [place] [address] SHON ROSALIE Unavailable [address] [place] [address] BARBY, JONATHAN Unavailable [address] + [place] [address] WOOCISCH Unavailable [address] [facility] [address] + [place] [address] SHON ROSALIE Unavailable [address] [phone] [place] [address] BARBY, JONATHAN Unavailable [address] + [place] [address] WOOCISCH Unavailable [address] [facility] [address] + [place] [address] JOSEPH MENENDEZALD Unavailable [address] [phone] [place] [address] UE Unavailable Unavailable Unavailable SHON ROSALIE Unavailable [address] [phone] [place] [address] UE Unavailable Unavailable Unavailable Care Team Providers Name Role Phone YEE GODINEZ ([facility]) Attending Unavailable Yareli Corley Attending Unavailable Yee Bustamante Referring Unavailable Yareli Corley Attending Unavailable Yee Bustamante Primary Care Unavailable Yareli Corley Attending Unavailable Kevin, Efewongbe Attending Unavailable Yee Bustamante Referring Unavailable Oleghe, Efewongbe Attending Unavailable Oleghe, Efewongbe Referring Unavailable Oleghe, Efewongbe Primary Care Unavailable Maryjo Upton Attending Unavailable Yee Bustamante Primary Care Unavailable Jose Moreland Attending Unavailable Jose Moreland Referring Unavailable Yee Bustamante Primary Care Unavailable Jose Moreland Attending Unavailable Schinner, Jose E Referring Unavailable Yee Bustamante Primary Care Unavailable Orion Solis Attending Unavailable Jorejrosio, Orion Referring Unavailable Yee Bustamante Primary Care Unavailable JorjerosioSilvanokinga Attending Unavailable Irma, Orion Referring Unavailable Jakeiff, Yee Primary Care Unavailable Vic Sexton Attending Unavailable Jolliff, Yee Referring Unavailable Daylinlliff, Yee Primary Care Unavailable PROBLEMS PROBLEMS DATE TYPE CONDITION / CODE ATTENDING STATUS SOURCE 09/28/2018 Unknown R19.7 - Diarrhea, Kevin, Active [place] unspecified / [facility] R19.7(ICD-10) Hospital Repository 09/14/2018 Unknown N76.0 - Acute JoryYareli Active [place] vaginitis / Community N76.0(ICD-10) Hospital Repository 05/26/2018 Unknown J01.00 - Acute Vic Sexton Active [place] maxillary Community sinusitis, Hospital unspecified / Repository J01.00(ICD-10) 02/08/2018 Unknown R10.9 - Orion Solis Active [place] Unspecified Community abdominal pain / Hospital R10.9(ICD-10) Repository 01/03/2018 Unknown R10.11 - Right Jose Moreland Active [place] upper quadrant E Community pain / Hospital R10.11(ICD-10) Repository PROCEDURES PROCEDURES No Procedure Records FoundRESULTS RESULTS INTERNAL MEDICINE Observed: 09/29/2018 Status: F Source: [place] OFFICE VISIT 1:16 PM [facility] REPOSITORY [facility] [address] [place] [address] OFFICE VISIT Date of Service: 09/28/18 MR#: [id number] Acct: [id number] Name: JEN DIOR [place] Rep #: [id number] : 1995 Provider: Spenser Brown MD Age/Sex: 23/F [place] [facility] [place]: Signed Intake Vital Signs09/28/18 Height 5 [...] safe at home: Yes additional social history: [employer] Patient works for [employer] HPI HPI Chief Complaint: establish care Details: [...] well developed Orientation: alert, awake, oriented x3 [facility] Head: atraumatic, normal to inspection, normocephalic Ears: [...] 1 month. This note was generated with Educanonation software. It may contain incorrect words, spelling, [...] 09/28/2018 Status: F Source: [place] 4:33 PM [facility] REPOSITORY TYPE CODE TESTS RESULT OUT OF [...] Lymph 2.77 Performed By: #### L100.0100 #### [facility] [address] [place], [address] COMPREHENSIVE METABOLIC Collected: 09/28/2018 Status: F Source: [facility] 4:33 PM [facility] REPOSITORY TYPE CODE TESTS RESULT OUT OF [...] Performed By: #### L500.4050, L501.9520, L506.0400 #### [facility] [address] [facility] [place], [address] THYROID STIM HORMONE Collected: 09/28/2018 Status: F Source: [place] (TSH) 4:33 PM [facility] REPOSITORY TYPE CODE TESTS RESULT OUT OF RANGE REFERENCE UNITS LAB L501.9520 0.358-3.74 uIU/mL Normal TSH 1.19 Performed By: #### L500.4050, L501.9520, L506.0400 #### [facility] [address] [facility] [place], [address] T4 FREE DIRECT Collected: 09/28/2018 Status: F Source: [place] 4:33 PM [facility] REPOSITORY TYPE CODE TESTS RESULT OUT OF RANGE REFERENCE UNITS LAB L506.0400 0.76-1.46 ng/dL Normal T4 FREE 1.06 DIRECT Performed By: #### L500.4050, L501.9520, L506.0400 #### [facility] [address] [facility] [place], [address] Observed: 08/22/2018 Status: F Source: [place] CULTURE, GENITAL 7:18 PM [facility] COMPREHENSIVE REPOSITORY Reason for Exam: vaginal irritation [...] 0.5 S (NF) indicates non-formulary drug at [facility]. Approval by Infectious Disease Specialist required before non-formulary drugs may be ordered and/or dispensed. * CLSI guidelines does not recommend testing of cephalosporins. This interpretation is deduced from Beta-lactam/penicillin results. Performed By: #### M100.1600 #### [facility] [address] [place], [address] TECHNICAL SUPPORT COORDINATOR OFFICE VISIT Observed: 08/22/2018 Status: F Source: [place] REPORT 3:01 PM [facility] REPOSITORY [facility] 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 Is patient in pain?: No [...] history: Jonathan- [employer] Patient works for [place] [employer] HPI DICHARGE AND ODOR: Details: JEN DIOR [...] Status: F Source: [place] REPORT 9:07 AM [facility] Now [address] [place], [place] [address] OFFICE VISIT Date of Service: 05/26/18 MR#: [id number] Acct: [id number] Name: JEN DIOR Rep #: [id number] : 1995 Provider: Vic DELEON Age/Sex: 23/F [place] [facility] [place] Status: Signed Intake Vital Signs05/26/18 Height 5 [...] confusion Exam Const General: cooperative, healthy appearing [facility] Head: normal to inspection Ears: hearing grossly [...] Status: F Source: [place] KAUFMAN 8:17 AM [facility] REPOSITORY [facility] Imaging Services [address] [place] [address] Small Bowel Series Only MR#: [id number] Acct: [id number] Name: JEN DIOR Rep #: [id number] : 1995 F 23 From: Jasper Clemente MD PCP: Yee Bustamante MD Status: REG CLI Study: Small Bowel Series Only Date of Exam: 02/08/18 Exam# [id number] Ordering Dr: Orion Solis MD PROCEDURE: SMALL [...] Jasper Clemente MD at 10:11 EDT Tel [phone], Service support , CC: Yee Bustamante MD; Orion Solis Technical Project Manager: Signed CRP Collected: 01/23/2018 Status: F Source: [place] 4:53 PM [facility] REPOSITORY TYPE CODE TESTS RESULT OUT OF RANGE REFERENCE UNITS LAB L501.6710 0.0-3.0 mg/L Normal < 2.90 C-REACTIVE PROT Result Comment: C-Reactive Protein (CRP) provides useful information for the diagnosis, therapy and monitoring of inflammatory processes and associated diseases. For the evaluation of Relative Risk for Cardiovascular Disease, a High Sensitivity CRP (HSCRP) should be ordered. Performed By: #### L501.6710 #### [facility] [address] [place], [address] CELIAC DISEASE Collected: 01/23/2018 Status: F Source: [place] PROFILE 4:53 PM [facility] REPOSITORY TYPE CODE TESTS RESULT OUT OF RANGE REFERENCE UNITS LAB L3200.1400 87-352 mg/dL Normal IMMUNO A 290 Result Comment: Performed at: - [facility] [id number] Core Inserter: Orion Schafer PhD, Phone: [phone] LAB L3193.8804 0-3 U/mL Normal tTG IGA <2 Result [...] number PROGRESS Observed: 01/10/2018 Status: COMPLETED Source: [place] 3:37 PM [facility] REPOSITORY HNO ID: [id number] Author: Yee Godinez Service: (none) Author Type: [...] no relief of pain. Has appointment with prosthetic aide January 23. Has also been considering having [...] APRN.CNP CNOV Observed: 01/10/2018 Status: COMPLETED Source: [place] 3:30 PM [facility] REPOSITORY Office Visit (WOOB) BARBYJEN Lyons ([id number]) 1995 F Date Time Provider Department 01/10/18 [...] no relief of pain. Has appointment with prosthetic aide January 23. Has also been considering having [...] as needed and schedule annual. Yee Godinez APRN.SHADE CUTTER Referring Provider: SELF [200] Allergies As of [...] HEPATOBILLIARY IMAGING Observed: 01/03/2018 Status: F Source: [place] 7:58 AM [facility] REPOSITORY [facility] Imaging Services [address] [place] [address] Hepatobilliary Imaging MR#: [id number] Acct: [id number] Name: BARBYFIGUEROALUIS EDUARDO Lyons Rep #: [id number] : 1995 F 22 From: Bam Lorenzo DO PCP: Yee Bustamante MD Status: REG CLI Study: Hepatobilliary Imaging Date of Exam: 01/03/18 Exam# [id number] Ordering Dr: Jose Moreland MD CLINICAL: 22-year-old [...] CC: Yee Bustamante MD; Jose Moreland MD Technical Project Manager: Signed GALLBLADDER Observed: 12/02/2017 Status: F Source: [place] 12:20 PM [facility] REPOSITORY [facility] Imaging Services [address] [place] [address] Gallbladder MR#: [id number] Acct: [id number] Name: JEN DIOR Rep #: [id number] : 1995 F 22 From: Akanksha Zeng MD PCP: Yee Bustamante MD Status: REG CLI Study: Gallbladder Date of Exam: 12/02/17 Exam# [id number] Ordering Dr: Jose Moreland MD STUDY: ABDOMINAL [...] CC: Yee Bustamante MD; Jose Moreland MD Technical Project Manager: Signed DISCHARGE INSTRUCTION Observed: 11/21/2017 Status: F Source: [place] 9:27 AM [facility] Medical Records Department [address] [place] [address] Discharge Instruction 11/21/17925 MR#: [id number] Acct: [id number] Name: JEN DIOR Rep #: [id number] : 1995 22 From: Maryjo Upton DO [...] your Primary Care Provider. Call [facility] ([phone]) or report to the closest Emergency Room. Call 911 if necessary. 11/21/17926 <Electronically signed by Maryjo Upton DO> Date Maryjo Upton DO Cosigner Signature (If Indicated): Date CC: Yee Bustamante MD EMERGENCY DEPARTMENT Observed: 11/21/2017 Status: F Source: [place] SUMMARY 9:26 AM [facility] REPOSITORY [facility] Medical Records Department [address] [place] [address] Emergency Department Summary 11/21/17 0922 MR#: [id number] Acct: [id number] Name: JEN DIOR Rep #: [id number] : 1995 22 From: Maryjo Upton DO [...] pain-etiology uncertain] This note was generated with Simtrol dictation software. It may contain incorrect words, [...] problems, contact your Primary Care Provider. Call [employer] [facility] ([phone]) or report to the closest Emergency Room. Call 911 if necessary. 11/21/17 0926 <Electronically signed by Maryjo Upton DO> Date Maryjo Upton DO Cosigner Signature (If Indicated): Date CC: Yee Bustamante MD URINALYSIS, COMPLETE Collected: 11/21/2017 Status: F Source: [place] 8:44 AM [facility] REPOSITORY Order Comment: Order Date: 11/21/17 How [...] URINE SEEN Performed By: #### L400.0001 #### [facility] [address] [facility] [place], [address] ABDOMEN/PELVIS WITHOUT Observed: 11/21/2017 Status: F Source: [place] CONT 7:19 AM [facility] REPOSITORY [facility] Imaging Services [address] [place] [address] Abdomen/Pelvis without Cont MR#: [id number] Acct: [id number] Name: JEN DIOR Rep #: [id number] : 1995 F 22 From: Jasper Clemente MD PCP: Yee Bustamante MD Status: REG ER Study: Abdomen/Pelvis without Cont Date of Exam: 11/21/17 Exam# [id number] Ordering Dr: Maryjo Upton DO STUDY: CT [...] Jasper Clemente MD at 8:24 EDT Tel [phone], Service support , CC: Yee Bustamante MD; Maryjo Upton DO Technical Project Manager: Signed PROGRESS Observed: 11/21/2017 Status: COMPLETED Source: [place] 7:01 AM [facility] REPOSITORY HNO ID: [id number] Author: Beto (Certified Social Workers In Health Care) Steven Service: (none) Author Type: Nurse Practitioner Type: Progress Notes Filed: 11/21/2017 7:02 AM Note Text: Subjective HPI ROS Objective Physical Exam CBC W/DIFF, AUTOMATED Collected: 11/21/2017 Status: F Source: [place] 7:00 AM [facility] REPOSITORY TYPE CODE TESTS RESULT OUT OF [...] Lymph 1.93 Performed By: #### L100.0100 #### [facility] [address] [place], [address] COMPREHENSIVE METABOLIC Collected: 11/21/2017 Status: F Source: [facility] 7:00 AM [facility] REPOSITORY TYPE CODE TESTS RESULT OUT OF [...] GAP 8 Performed By: #### L500.4050 #### [facility] [address] [facility] [place], [place], [address] ,SERUM,HCG QUALI. Collected: Status: F Source: [place] 11/21/2017 7:00 AM [facility] REPOSITORY TYPE CODE TESTS RESULT OUT OF REFERENCE UNITS RANGE LAB L700.7000 0-9 Nonpreg Negative Normal HCGSQUAL NEGATIVE LAB L700.6700 =>Qualitative mIU/mL Normal HCG Qual < 1 triggr Performed By: #### L700.6800 #### [facility] [address] [facility] [place], [place], [address] CNOV Observed: 11/21/2017 Status: COMPLETED Source: [place] 6:45 AM [facility] REPOSITORY Office Visit (WSTR) JEN DIOR ([id number]) 1995 F Date Time Provider Department 11/21/17 6:45 AM [facility] UCWSTR During your visit today, we recorded [...] Date Reviewed: 01/14/2017 Reviewed by: Kendy Maxwell (Sas Developer) ANDRES Rodriguez - Fully Assessed Primary Visit [...] CODE REACTION SEVERITY SOURCE CODE 08/22/2018 Drug codeine/[id number] Anaphylaxis Unknown [place] Allergy/41 0(RXNORM) [facility] [id number]([facility]) Repository 08/22/2018 Drug amoxicillin/F0060 Anaphylaxis Unknown [place] Allergy/41 [address]5712(RXNORM) [facility] 4501509([facility]) Repository 07/14/2015 DRUG AMOXICILLIN ANAPHYLAXIS [address] [id number]( Repository [facility] CT) 07/14/2015 DRUG CODEINE ANAPHYLAXIS [address] [id number]([facility]) ENCOUNTERS ENCOUNTERS ADMIT/DISCHARGE ACCOUNT ADMITTING ENCOUNTER LOCATION SOURCE NUMBER CLASS 09/28/2018 [id number] Ambulatory [place] [facility] ing:LAB Repository 09/28/2018/09/28/19 [id number] Ambulatory BMSBuilding:B [place] 19 [facility] Repository 08/23/2018 [id number] Ambulatory BMSBuilding:B [place] MS.[facility] Repository 08/22/2018 [id number] Ambulatory [facility] ing:LABSPEC Repository 08/22/2018/08/22/20 [id number] Ambulatory BMSBuilding:B [place] 18 MS.[facility] Repository 05/26/2018/05/26/20 [id number] Ambulatory BMSBuilding:B [place] 18 MS.[facility] Repository 02/08/2018 [id number] Ambulatory [facility] ing:RAD Repository 01/23/2018 [id number] Ambulatory [facility] ing:MTLAB Repository 01/10/2018/01/13/20 [id number] Ambulatory [address] Repository 01/03/2018 [id number] Ambulatory [facility] ing:NM Repository 12/02/2017 [id number] Ambulatory [facility] ing:USHP Repository 11/21/2017/11/22/19 [id number] Emergency [address] ing:ED Repository 11/21/2017/11/22/19 [id number] Ambulatory [address] Repository PAYERS PAYERS ENCOUNTER GUARANTOR PAYER SUBSCRIBER SOURCE 09/28/2018 [id number] [id number] Primary AVARI L [place] Insurance:MEDICAL GRESSDOB: [facility] [id number] Hospital [address]Hbo: (330) Number: Repository [phone] ) [id number] Date:3819-44-55RJ [address] [place] [phone]: 09/28/2018 Secondary NOT GIVENUNK [place] Insurance:SELF PAY [facility] Number: Effective Repository Date:2018-09-28 09/28/2018 AVARI L [id number] Primary AVARI L [place] Insurance:MEDICAL GRESSDOB: [facility] [id number] [id number]: (330) Number: Repository [phone] () [id number] Date:9496-62-75HG [address] [place] [address]KU: 09/28/2018 Secondary NOT GIVENUNK [place] Insurance:SELF PAY [facility] Number: Effective Repository Date:2018-09-21 08/23/2018 AVARI L [id number] Primary AVARI L [place] Insurance:MEDICAL GRESSDOB: [facility] [id number] Hospital [address]Gqa: (330) Number: Repository [phone] () [id number] Date:1822-88-76BX [address] [place], [place] [address]WP: 08/23/2018 Secondary NOT GIVENUNK [place] Insurance:SELF PAY [facility] Number: Effective Repository Date:2018-08-23 08/22/2018 AVARI L [id number] Primary AVARI L [place] Insurance:MEDICAL GRESSDOB: [facility] [id number] Hospital [address]Ymo: (330) Number: Repository [phone] () [id number] Date:8536-96-54CW [place] [id number]: 08/22/2018 Secondary NOT GIVENUNK [place] Insurance:SELF PAY [facility] Number: Effective Repository Date:2018-08-22 08/22/2018 AVARI L [id number] Primary AVARI L [place] Insurance:MEDICAL GRESSDOB: [facility] [id number] Hospital [address]Fpq: (330) Number: Repository [phone] () [id number] Date:4935-70-49OE [address] [address]EG: 08/22/2018 Secondary NOT GIVENUNK [place] Insurance:SELF PAY [facility] Number: Effective Repository Date:2018-08-22 05/26/2018 AVARI L [id number] Primary AVARI L [place] Insurance:MEDICAL GRESSDOB: [facility] [id number] Hospital [address]Slq: (330) Number: Repository [phone] () [id number] Date:9097-39-14CY[place] [id number]: 05/26/2018 Secondary NOT GIVENUNK [place] Insurance:SELF PAY [facility] Number: Effective Repository Date:2018-05-26 02/08/2018 AVARI L [id number] Primary AVARI L [place] Insurance:MEDICAL GRESSDOB: [facility] [id number] Hospital [address]Eoz: (330) Number: Repository [phone] () [id number] Date:7919-06-64[place]SA[place] [phone]: 02/08/2018 Secondary NOT GIVENUNK [place] Insurance:SELF PAY [facility] Number: Effective Repository Date:2018-01-23 01/23/2018 AVARI L [id number] Primary AVARI L [place] Insurance:MEDICAL GRESSDOB: [facility] [id number] Hospital [address]Dos: (330) Number: Repository [phone] () [id number] Date:0486-92-31MDA[place] [id number]: 01/23/2018 Secondary NOT GIVENUNK [place] Insurance:SELF PAY [facility] [place] Number: Effective Repository Date:2018-01-23 01/03/2018 AVARI L [id number] Primary AVARI L [place] Insurance:MEDICAL GRESSDOB: [facility] [id number] Hospital [address]Vsj: (330) Number: Repository [phone] () [id number] Date:8080-20-88YZ [address] [address]XX: 01/03/2018 Secondary NOT GIVENUNK [place] Insurance:SELF PAY [facility] [place] Number: Effective Repository Date:2017-12-06 12/02/2017 AVARI [place] [id number] Primary AVARI L [place] Insurance:MEDICAL GRESSDOB: [facility] [id number] Hospital 24[address]Urq: (330) Number: Repository [phone] () [id number] Date:2799-43-87[address] [address]KH: 12/02/2017 Secondary NOT GIVENUNK [place] Insurance:SELF PAY [facility] Number: Effective Repository Date:2017-12-01 11/21/2017 AVARI L [id number] Primary AVARI L [place] Insurance:MEDICAL GRESSDOB: [facility] [id number] Hospital [address]Lox: (330) Number: Repository [phone] () [id number] Date:0056-72-77[address] [address]UE: 11/21/2017 Secondary NOT GIVENUNK [place] Insurance:SELF PAY [facility] Number: Effective Repository Date:2017-11-21
== END ==
PROVIDERS: Family Provider Internal Medicine; PCP Internal Medicine; Referring Provider Internal Medicine; Visit Provider Internal Medicine
DX: R19.7 Diarrhea, unspecified (principal)
CPT/HCPCS: 36415; 80053; 84439; 84443; 85025

== ENCOUNTER → 2018-11-20 17:51 | Outpatient (CLI) | payer OTHER, SELFPAY ==
[2018-11-20 15:26] VITALS: BMI 32.9
[2018-11-26 10:47] LABS: HPV Reflexed? NOT INDICATED
== END ==
PROVIDERS: Family Provider Internal Medicine; PCP Internal Medicine; Referring Provider Obstetrics & Gynecology; Visit Provider Obstetrics & Gynecology
DX: Z12.4 Encounter for screening for malignant neoplasm of cervix (principal)
CPT/HCPCS: 87624; 88175; G0145

== ENCOUNTER → 2019-07-10 | Outpatient (CLI) | payer OTHER, SELFPAY ==
[2019-07-10 09:22] VITALS: BMI 34.3
--- NOTE | 2019-07-10 10:00 | RAD_ITS ---
STUDY: X-RAY - PELVIS AND LEFT HIP REASON FOR EXAM: Female, 24 years old. Pain TECHNIQUE: 3 views of the pelvis and hip. COMPARISON: None. FINDINGS: There is a non-specific bowel gas pattern. Normal visualized soft tissue structures. Normal bilateral iliac wings, sacroiliac joints and visualized sacrum. Normal bilateral superior and inferior pubic rami. Normal pubic symphysis. Normal bilateral ischial tuberosities. Normal visualized femoral head. Normal acetabulum. Normal hip joint. RAD/HIP, UNI W/ Pelvis 2-3 Views IMPRESSION: Normal x-ray examination of the pelvis and hip. Electronically Signed: Derrick Burris, at 17:08 EDT Tel , Service support ,
== END | disposition home or self-care (01) ==
PROVIDERS: Family Provider Internal Medicine; PCP Internal Medicine; Referring Provider Internal Medicine; Visit Provider Internal Medicine
DX: M25.552 Pain in left hip (principal)
CPT/HCPCS: 73502

== ENCOUNTER → 2019-07-25 | Outpatient (CLI) | payer OTHER, SELFPAY ==
[2019-07-25 13:41] VITALS: BMI 33.5
--- NOTE | 2019-07-25 15:06 | RAD_ITS ---
STUDY: X-RAY - LUMBAR SPINE REASON FOR EXAM: Female, 24 years old. Low back pain with numbness of the left foot for 2 months. TECHNIQUE: 3 view(s) of the lumbar spine were obtained. COMPARISON: None FINDINGS: Normal lumbar lordosis. There is minimal scoliosis, convexity to the left. There is a normal alignment of the vertebrae. Normal vertebral bodies and endplates. Normal disc space heights. There is no demonstrated fracture. The soft tissue structures are unremarkable. RAD/Lumbar Spine 2 or 3 Views IMPRESSION: Minimal scoliosis as described above. Otherwise normal x-ray examination of the lumbar spine. Electronically Signed: Madyson Burgos MD at 1:44 EST , Service support ,
== END | disposition home or self-care (01) ==
LOC: MTRAD 15:05
PROVIDERS: Family Provider Internal Medicine; PCP Internal Medicine; Referring Provider Nurse Practitioner Family; Visit Provider Nurse Practitioner Family
DX: M54.16 Radiculopathy, lumbar region (principal)
CPT/HCPCS: 72100

== ENCOUNTER 2019-07-27 06:18 | Emergency (ER) | payer OTHER, SELFPAY ==
[2019-07-25 13:41] VITALS: BMI 33.5
[2019-07-27 06:19] VITALS: BP 135/85; PULSE 89; RESP 22; TEMP 36.7; O2SAT 98; BMI 34.3
--- NOTE | 2019-07-27 06:43 | ED.VIS.BACK ---
History of Present Illness Chief Complaint: Back Informant: Patient Onset: Weeks - 6 Context: Gradual Onset Timing: Continuous Quality: Aching Location: Lumbar, Left Leg Current Severity: Severe Maximum Severity: Severe Worsened by: improves with: Movement Relieved by: Nothing Associated Symptoms: Numbness, Tingling, Radiation to Left Leg, - - No urinary retention. Leaked a small amount of urine yesterday. Feels like she does not have good sensation of needing to empty her bladder. Bowel movements are normal without retention or incontinence. Narrative: Has been having sciatica pain going down the left lower extremity for about 6 weeks. While she was walking in her home she felt a pop in her left buttock last night, but she did not have significant exacerbation of her pain until she woke up with it this morning. She took some Tylenol but it did not help and she is in severe discomfort. She denies any weakness in her legs. She has painful numbness down the left lower extremity, these of the same symptoms she has had in the past 6 weeks but just much worse. She has pain in her buttock area and the lumbar back. She has seen her primary doctor and had x-rays, going through physical therapy now, trying to get an MRI but they have not been able to get it approved yet. No major injuries. - Past Medical History (1) Depression with anxiety Status: Chronic Past Medical History - Allergies and Home Meds Allergies/Adverse Reactions: Allergies amoxicillin Allergy (Verified 07/27/19 06:21) Anaphylaxis codeine Allergy (Verified 07/27/19 06:21) Anaphylaxis Primary Care Physician: Spenser Brown MD [Primary Care Provider] - 3-5 Days Lives: Spouse/ Significant Other Smoking Status: Never smoker Drugs: None Review of Systems General: Denies: Chills, Fever, Sweats Gastrointestinal: Denies: Abdominal pain, Nausea, Vomiting, Diarrhea, Melena, Hematochezia Genitourinary: Reports: - - see HPI. Denies: Dysuria, Hematuria, Frequency Musculoskeletal: Reports: Back pain, Extremity Pain. Denies: Swelling Skin: Denies: Rash, Wounds Neurological: Reports: Parasthesia - LLE. Denies: Headache, Weakness Physical Exam Vital Signs/Narrative: Vital Signs Temp Pulse Resp BP Pulse Ox 07/27/19 06:19 98.1 F 89 22 H 135/85 H 98 Inital Vital Signs reviewed: Yes General: Well nourished, Well developed, - - uncomfortable, nad Head: Normocephalic, Atraumatic Eyes: Perrl, EOMI Neck: Supple, Nontender Respiratory: No distress Back: Normal Inspection, Paraspinal Tenderness - left lumbar, also at left sciatic notch, Negative SLR - Right - but pos contralat SLR w/ LLE sx, Positive SLR - Left - ipsilat Extremeties: Nontender, No edema Skin: Normal color, No rash Neuro: Alert, Oriented, Normal Strength, Normal Sensation, Normal DTR - BLE, symmetric Reflexes: Right Patellar - 2+, Right Achilles - 2+, Left Patellar - 2+, Left Achilles - 2+. Negative for: Right Clonus, Left Clonus Psychological: Normal affect, Normal Mood Diagnostic/Tx/Re-eval - Medical Decision Making We performed a bladder scan postvoid residual in the patient, it was 11 cc which is almost negligible, reassuring that she does not have acute cauda equina syndrome, which given her symptoms and exam, I do not suspect at this time. I do think she needs an MRI but I do not think it needs to be obtained emergently. I discussed this with her and she understands. We controlled her pain here with injections and I will prescribe her a short course of analgesics and advised that she follow-up with her doctor in order to try to expedite an outpatient MRI. We discussed reasons to return. ED Disposition - Plan for ED Patient: Disposition: Home or Assisted Living Diagnosis: Acute low back pain with left-sided sciatica Instructions: BACK PAIN w/ SCIATICA Prescriptions: Hydrocodone Bitart/Apap 5-325 [Brigantine 5MG-325MG] 1 tablet PO Q4H PRN PRN 2 Days #10 tablet PRN Reason: Pain Transmission Status: Sent to [id number] Referrals: Spenser Brown MD [Primary Care Provider] - 3-5 Days
[2019-07-27] MEDS: oxyCODONE 5 MG Tablet PO (07:01)
[2019-07-27] MEDS: Ketorolac 60 MG/2 ML Vial IM (07:02)
[2019-07-27] MEDS: Orphenadrine 60 MG/2 ML Ampul IM (07:04)
== END 2019-07-27 08:14 | disposition home or self-care (01) ==
PROVIDERS: Emergency Provider Emergency Medicine; Family Provider Internal Medicine; PCP Internal Medicine
DX: M54.42 Lumbago with sciatica, left side (principal); F41.8 Other specified anxiety disorders; Z79.899 Other long term (current) drug therapy
CPT/HCPCS: 96372; 99283

== ENCOUNTER 2019-07-31 21:50 | Emergency (ER) | payer OTHER, SELFPAY ==
[2019-07-30 14:36] VITALS: BMI 34.3
[2019-07-31 21:51] VITALS: BP 140/80; PULSE 124; RESP 20; TEMP 37.1; O2SAT 96; BMI 33.9
--- NOTE | 2019-07-31 23:14 | ED.VISSUMM ---
- ER Visit Summary Date of Service: 07/31/19 Chief Complaint: Back pain History of Present Illness: The patient is a 24 F presenting with back pain. She states this started approximately 2 weeks ago. Tonight she was doing back stretches that were given to her by physical therapy. She had sudden increasing pain in her left lower back radiating to her left leg. She tried gabapentin and meloxicam at home. She denies recent fever. Denies bowel or bladder incontinence. She states she has had diarrhea. Denies abdominal pain, nausea, vomiting. Denies other complaints. Physical Examination: Vitals are stable. Patient is afebrile. Alert no acute distress. HEENT exam is unremarkable. Neck is supple. Lungs are clear and equal bilaterally. Heart is regular rate and rhythm. Abdomen is soft nontender nondistended. Back: Left paraspinal lumbar muscle tenderness; no midline tenderness. Straight leg raise positive at 30 degrees on the left Extremities are unremarkable. Skin is warm and dry. No focal neurologic deficit. Normal strength and sensation Remainder of exam is unremarkable. Emergency Department Course and Treatment: Patient was given Valium, Toradol. On reevaluation patient is now complaining of left lower quadrant abdominal pain. On exam she has left lower quadrant tenderness with no guarding or rebound. She was given IV Zofran. CBC, chemistries unremarkable. hCG negative. CT abdomen pelvis is pending and will be checked out to the oncoming physician. Disposition: Pending Impression: Back pain, LLQ pain This note was generated with [employer] dictation software. It may contain incorrect words, spelling, and punctuation that were not noted in review of the chart prior to signing ED Disposition - Plan for ED Patient: Referrals: Spenser Brown MD [Primary Care Provider] -
[2019-07-31] MEDS: diazePAM 5 MG Tablet PO (23:26)
[2019-07-31] MEDS: Ketorolac 60 MG/2 ML Vial IM (23:26)
[2019-08-01 01:16] VITALS: BP 134/87; PULSE 91; RESP 16; O2SAT 98
[2019-08-01 01:17] LABS: Absolute Lymphocyte Count 2.46 X10^3/uL (0.83-4.51); Absolute Neutrophil Count 6.4 X10^3/uL (2.0-7.7); Basophil# 0.03 X10^3/uL; Basophil% 0.3 % (0-1); Eosinophil# 0.16 X10^3/uL; Eosinophils% 1.6 % (0-5); Hematocrit 44.7 % (37-47); Hemoglobin 15.1 g/dL (12.0-15.0); Lymphocyte # 2.46 X10^3/ul (4.0); Lymphocyte % 25.3 % (19-41); Mean Corp Hgb Conc 33.8 g/dL (32-36); Mean Corpuscular Volume 91.8 fL (81-99); Mean Platelet Vol. 10.6 fl (6.2-12.0); Monocyte# 0.66 X10^3/uL; Monocyte% 6.8 % (0-10); NRBC Flagged by Analyzer 0 % (0-5); Neutrophil # 6.39 X10^3/uL (2.7-7.7); Neutrophil % 65.9 % (47-70); Platelet Count 252 K/mm3 (150-450); RBC Distribution Width CV 11.9 % (11.6-14.6); Red Blood Count 4.87 M/mm3 (4.2-5.4); White Blood Count 9.7 K/mm3 (4.4-11.0)
[2019-08-01] MEDS: Ondansetron 4 MG/2 ML Vial IV (01:20)
[2019-08-01 01:25] LABS: Internal QC Validated? YES +Cl - CLEAR BKGD; Pregnancy, Serum, hCG Quali. NEGATIVE Negative
[2019-08-01 01:27] LABS: Red Blood Cells-Urine 0 SEEN /hpf (0-5)
[2019-08-01 01:29] LABS: Anion Gap 6 (5-15); BUN 14 mg/dL (7-18); BUN/Creat Ratio 26.9 RATIO (10-20); Calcium,Total 9.5 mg/dL (8.5-10.1); Chloride 105 mmol/L (98-107); Creatinine, Serum 0.52 mg/dL (0.55-1.02); EST Glomerular Filtration Rate 152 mL/min (>60); Est Glom Filt Rate - Afr Amer 184 mL/min (>60); Estimated Creatinine Clearance 154.82 ml/min; Glucose 101 mg/dL (74-106); Potassium 4.1 mmol/L (3.5-5.1); Sodium Level 138 mmol/L (136-145)
[2019-08-01 01:30] LABS: Color, Urine Yellow (Yellow); Glucose, Dipstick Normal (Normal); Ketone-Dipstick 5 mg/dl (Negative); Leukocyte Esterase-Dipstick 25 /ul (Negative); Nitrite-Dipstick Negative (Negative); Occult Blood-Urine 10 /ul (Negative); Protein-Dipstick Negative (Negative); Urine Bilirubin Dipstick Negative (Negative); Urine Clarity Clear (Clear); Urine Urobilinogen 1 mg/dl (Normal)
--- NOTE | 2019-08-01 01:40 | CT_ITS ---
STUDY: CT ABDOMEN AND PELVIS WITHOUT CONTRAST REASON FOR EXAM: Female, 24 years old. Left back pain RADIATION DOSAGE (If Supplied By Facility): CTDIvol = ( 13.83 ) mGy, DLP = ( 735.75 ) mGycm TECHNIQUE: Transaxial images were obtained from the dome of the diaphragm to the symphysis pubis without oral contrast, and without intravenous contrast. Sagittal and coronal images were reconstructed. Individualized dose optimization techniques were used for this CT. COMPARISON: None. FINDINGS: The visualized lung bases are unremarkable. The visualized portions of the heart are within normal limits. Normal liver. Normal gallbladder and extrahepatic biliary system. Normal spleen. Normal pancreas. Normal bilateral adrenal glands. Normal right kidney. Normal left kidney. Normal visualized stomach. Normal small intestine. Mild diverticular disease of the proximal sigmoid colon without inflammation. The appendix is visualized and appears normal. Normal abdominal aorta. Normal inferior vena cava. Normal retroperitoneum. Normal urinary bladder. Intrauterine device positioned within the endometrial cavity. Normal abdominal wall. Normal osseous structures. CT/Abdomen/Pelvis without Cont IMPRESSION: 1. No acute intra-abdominal abnormality. 2. Mild proximal sigmoid colonic diverticulosis with no evidence of acute diverticulitis. 3. Appropriate positioning of intrauterine device. Electronically Signed: Edmundo Shane MD at 2:31 EST Tel , Service support ,
[2019-08-01 01:41] LABS: Bacteria RARE /hpf (None Seen); Mucous, Urine 1+ /hpf (<or=2+); Squamous Epithelial Cells - UA 0-5 SEEN /hpf (5-10); White Blood Cells 0-5 SEEN /hpf (0-5)
--- NOTE | 2019-08-01 03:23 | ED.DCSUM_ITS ---
- ER Visit Summary Date of Service: 08/01/19 Chief Complaint: [] History of Present Illness: The patient is a 24 F [] Physical Examination: [] Test Results: Clinical Impression(s) from Imaging Studies Abdomen/Pelvis CT 08/01/19 01:40 IMPRESSION: 1. No acute intra-abdominal abnormality. 2. Mild proximal sigmoid colonic diverticulosis with no evidence of acute diverticulitis. 3. Appropriate positioning of intrauterine device. Electronically Signed: Edmundo Shane MD at 2:31 EST Tel , Service support , Laboratory Data 08/01/19 08/01/19 08/01/19 01:10 01:10 01:10 WBC 9.7 RBC 4.87 Hgb 15.1 H Hct 44.7 MCV 91.8 MCH 31.0 MCHC 33.8 RDW Std Deviation 40.0 RDW Coeff of Geovanna 11.9 Plt Count 252 MPV 10.6 Immature Gran % (Auto) 0.100 Neut % (Auto) 65.9 Lymph % (Auto) 25.3 Thurston % (Auto) 6.8 Eos % (Auto) 1.6 Baso % (Auto) 0.3 Absolute Neuts (auto) 6.4 Absolute Lymphs (auto) 2.46 Nucleated RBC % 0 Sodium 138 Potassium 4.1 Chloride 105 Carbon Dioxide 27.0 Anion Gap 6 BUN 14 Creatinine 0.52 L Estim Creat Clear Calc 154.82 Est GFR (MDRD) Af Amer 184 Est GFR (MDRD) Non-Af 152 BUN/Creatinine Ratio 26.9 H Glucose 101 Calcium 9.5 Serum , Qual NEGATIVE Urine Color Urine Clarity Urine pH Ur Specific Sherman Urine Protein Urine Glucose (UA) Urine Ketones Urine Occult Blood Urine Nitrite Urine Bilirubin Urine Urobilinogen Ur Leukocyte Esterase Urine RBC Urine WBC Ur Squamous Epith Cells Urine Bacteria Urine Mucus 08/01/19 01:22 WBC RBC Hgb Hct MCV MCH MCHC RDW Std Deviation RDW Coeff of Geovanna Plt Count MPV Immature Gran % (Auto) Neut % (Auto) Lymph % (Auto) Thurston % (Auto) Eos % (Auto) Baso % (Auto) Absolute Neuts (auto) Absolute Lymphs (auto) Nucleated RBC % Sodium Potassium Chloride Carbon Dioxide Anion Gap BUN Creatinine Estim Creat Clear Calc Est GFR (MDRD) Af Amer Est GFR (MDRD) Non-Af BUN/Creatinine Ratio Glucose Calcium Serum , Qual Urine Color Yellow Urine Clarity Clear Urine pH 7.0 Ur Specific Sherman 1.010 Urine Protein Negative Urine Glucose (UA) Normal Urine Ketones 5 H Urine Occult Blood 10 H Urine Nitrite Negative Urine Bilirubin Negative Urine Urobilinogen 1 H Ur Leukocyte Esterase 25 H Urine RBC 0 SEEN Urine WBC 0-5 SEEN Ur Squamous Epith Cells 0-5 SEEN Urine Bacteria RARE Urine Mucus 1+ Emergency Department Course and Treatment: Patient signed out to me by Dr. Adame. Patient is presenting with lower back pain and leg spasm. Likely this is muscle skeletal. Patient is currently in physical therapy for her low back pain. Patient received IV Toradol and Valium. She has slight improvement of her symptoms. Patient was signed out to me to follow the CT read. This does not show any acute intra-abdominal process. Patient be discharged home. She is given a small dose of morphine prior to discharge. Patient be discharged home with a course of Flexeril. Patient is already on gabapentin and meloxicam for her back pain. Treatment Plan: Flexeril Disposition: Discharge home Impression: Acute on chronic low back pain This note was generated with [employer] dictation software. It may contain incorrect words, spelling, and punctuation that were not noted in review of the chart prior to signing ED Disposition - Plan for ED Patient: Disposition: Home or Assisted Living Instructions: BACK PAIN (Acute or Chronic), BACK SPASM, No Trauma Prescriptions: cycloBENZAPRine HCl [Flexeril] 10 mg PO TID PRN PRN #12 tab PRN Reason: Spasms Prescription Printed Referrals: Spenser Brown MD [Primary Care Provider] -
[2019-08-01] MEDS: Morphine 2 MG/ML Syringe IV (03:34)
[2019-08-01 03:39] VITALS: BP 94/67; PULSE 82; RESP 16; O2SAT 98
== END 2019-08-01 03:48 | disposition home or self-care (01) ==
PROVIDERS: Emergency Provider Emergency Medicine; Family Provider Internal Medicine; PCP Internal Medicine
DX: M54.5 Low back pain (principal); R10.32 Left lower quadrant pain; G89.29 Other chronic pain; K57.30 Diverticulosis of large intestine without perforation or abscess without bleeding
CPT/HCPCS: 74176; 80048; 81001; 84703; 85025; 96372; 96374; 96375; 99284; A4216; J2405

== ENCOUNTER 2019-08-13 16:00 | Outpatient (RCR) | payer OTHER, SELFPAY ==
[2019-07-10 09:22] VITALS: BMI 34.3
--- NOTE | 2019-07-16 09:28 | HP.PTEVAL ---
Patient's Visit Information MISHA DIOR is a 24 year old F referred to Physical Therapy by Spenser Brown MD with a diagnosis of L Hip Pain. Date of Evaluation: 07/16/19 Physical Therapist: Nancy Kendall DPT - Visit Plan Frequency: 2x /Week Duration: 4 Weeks Plan: Focus on improving lumbar/LE ROM, LE/core strength/stabilization, improving functional mobility, and decreasing sciatic pain. Body mechanics/postural education as needed. 07/16/19 HEP Prescribed: Isometric Abdominals, Supine Bridges, Seated HS Stretch - Subjective Findings: Has been having pain in back for about 5 weeks, started in back and has mvoed to L hip and down to her toes. R side feels fine. Pain moved from back to hip about 2-3 weeks ago, started noticing numbness about go. When painw as in back, would not travel above mid-back. Insidious onset - went on a road trip, 8 hours of driving, was very stiff. Sees chirporactor regularly (last time 07/13/19). Seems to be helping her back, but not her hip pain. Describes pain as sharp shooting, concentrating on lateral side of L hip, down to outside of knee and wraps around her calf/lower leg. Has noticed some leg weakness lately. Worst: 5-6/10 Aggravates: Sleeping, waking up, bending, lifting, prolonged sitting, driving. Best: 4/10 Eases: Heating pad, cold pack. Does disrupt sleep - sleeps on R side & back, sleeps on bed and sometimes couch (firm couch that seems to help). N/T just at L middle toes. 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 Typical Activities: taking dog on walk, ADL's, house cleaning, sewing. Exercise Program: minimal stretching at home - hasn't seemed to help a whole lot. Lives in one story home w/ basement on first floor, 2 steps going into the house. Last week x-rays for hip negative. X-rays for her back in December ([facility] - Sandeep Martins). PMH/Meds: Prescribed steroid - finished dosage. Prescribed pain medication (can't remember what). Reported some dizzy spells from the steroid when she was taking it. Sticks to OTC meds for pain management. Dislocated knee 11 years ago. - Objective Posture: RS, FH - corrected w/ v/c, but not maintained. Gait: Decreased tigist, decreased weight shift to L, sligth B trendelenburg. Stairs: Asc - reciprocal w/ 2 HR support, decreased stance time on R, painful when asc. Desc - step-to pattern, 2 HR for support, painful. Decreased tigist asc/desc. HR/TR: WFL (pain w/ HR) UE assist. SLS: R - 15 seconds no UE assist, L - 3 seconds only d/t pain. ROM: Lumbar: flex 50% diminshed & painful, Ext: 0% & painful, SB & Rot. B 50% diminished & painful. Ankle WFL, Knee WFL (pain at end-range ext.), Hip WFL (pain at end-range in all planes). Strength: Ankle 5/5, Knee 4-/5, Hip Flex 3+/5, Abd 4-/5, Ext 3+/5, IR/ER 4-/5 Core: Poor. Flexibility: Gastroc Mod., Hamstring: Severe. Special Tests: Slump L (positive). Sensation: WNL to gross B touch. Palpation: TTP at L gluteal region - increased in sicatic symptoms w/ pressure at this region. - Goals Goal 1:: Pt. will be I w/ HEP & progression Goal Time Frame: 4-6 Weeks Goal 2:: Pt. will amb. >300 ft w/ normalized gait pattern. Goal 3:: Pt. will maintain proper posture t/o tx session to demo improved core strength. Goal Time Frame: 4-6 Weeks Goal 4:: Pt. will demo lumbar ROM WFL Goal Time Frame: 4-6 Weeks Goal 5:: Pt. will report pain level of 0/10 for 1 week. Goal 6:: Pt. will demo 4+/5 strength in L LE - Rehabilitation Potential Physical Therapy Diagnosis: Presents w/ hypomobility, decreased lumbar/LE ROM, impaired LE/core strength, antalgic gait, difficulty asc/desc stairs, and sciatic pain which leads to impaired performance of ADL's and work-related tasks. Rehabilitation Potential: Good - Anticipated Interventions Patient/Client Instruction: Educate patient on: Condition For the Purpose of:: To decrease pain Therapeutic Exercise to Include: Strength training, Endurance training, Balance training, Body mechanics, Postural training, Flexibilty training, Active ROM, Dynamic Lumbar Stabilization For the Purpose of:: To improve muscle performance and motor function Manual Therapy Techniques to Include: Mobilization Cryotherapy (ice pack, ice massage): Yes Thermo therapy (hot pack): Yes Ultrasound (thermal/non thermal): Yes For the Purpose of:: To decrease pain Thank you for the opportunity to evaluate your patient. For Medicare and Medicare HMO plans, please review the plan of care and approve it. It will need to be FAXED BACK to us at [phone] for Medicare purposes. For Medicare only, by signing this I certify the plan of care. Please let me know if there are questions or concerns regarding this plan of care. Physician Signature: Date:
== END 2019-08-13 19:00 | disposition home or self-care (01) ==
LOC: PT 16:00
PROVIDERS: Family Provider Internal Medicine; PCP Internal Medicine; Visit Provider Internal Medicine
DX: M25.552 Pain in left hip (principal)
CPT/HCPCS: 97014; 97110; 97161; G0283

== ENCOUNTER → 2019-08-30 | Outpatient (CLI) | payer OTHER, SELFPAY ==
[2019-08-22 16:16] VITALS: BMI 34.2
[2019-08-30 11:18] LABS: Bacteria 0 SEEN /hpf (None Seen); Mucous, Urine 0 SEEN /hpf (<or=2+)
[2019-08-30 12:39] LABS: Color, Urine Yellow (Yellow); Glucose, Dipstick Normal (Normal); Ketone-Dipstick Negative (Negative); Leukocyte Esterase-Dipstick 25 /ul (Negative); Nitrite-Dipstick Negative (Negative); Occult Blood-Urine 10 /ul (Negative); Protein-Dipstick Negative (Negative); Specific Gravity, Urine 1.015 (1.002-1.030); Urine Bilirubin Dipstick Negative (Negative); Urine Clarity Sl. Cloudy (Clear); Urine Urobilinogen Normal (Normal)
[2019-08-30 12:52] LABS: Red Blood Cells-Urine 0-5 SEEN /hpf (0-5); Squamous Epithelial Cells - UA 0-5 SEEN /hpf (5-10); White Blood Cells 0-5 SEEN /hpf (0-5)
== END | disposition home or self-care (01) ==
LOC: MTLAB 11:16
PROVIDERS: Family Provider Internal Medicine; PCP Internal Medicine; Referring Provider Nurse Practitioner Family; Visit Provider Nurse Practitioner Family
DX: Z01.818 Encounter for other preprocedural examination (principal)
CPT/HCPCS: 81001

== ENCOUNTER 2019-09-03 14:40 | Emergency (ER) | payer OTHER, SELFPAY ==
[2019-08-22 16:16] VITALS: BMI 34.2
[2019-09-03 14:41] VITALS: BP 124/74; PULSE 95; RESP 18; TEMP 36.6; O2SAT 98; BMI 32.3
[2019-09-03] MEDS: 0.9% Normal Saline 1,000 ML 1000 ML IV (15:40)
--- NOTE | 2019-09-03 15:46 | ED.VISSUMM ---
- ER Visit Summary Date of Service: 09/03/19 Chief Complaint: [Syncope] History of Present Illness: The patient is a 24 F [presents to the emergency department complaint of syncopal episodes that started yesterday. Patient states that she had a microdiscectomy 3 days ago. First episode of syncope occurred yesterday while she was on the toilet. Patient remembers feeling nauseated and sweaty and then everything kind of went dark but she did not fall off the toilet. Last evening patient had her bandage taken off and she saw the blood and began feeling woozy so she sat down but did not actually fall or hurt her self. Patient this morning had an episode where she was standing at the sink and she started feeling like she was going to pass out but her was there therefore she did not fall. Patient states that everything just kind of went dark and she was unable to hear or see anybody for a few moments. Patient called the surgeon's office and they were referred emergency department. They were advised to discontinue the Flexeril and [place] in the meantime. Patient denies any fevers. She denies any chest pain. She denies any shortness of breath. Patient denies palpitations.] Physical Examination: [HEENT-PERRLA, EOMI. Cranial nerves II through XII grossly intact. TMs clear. Mucous membranes moist. No adenopathy. Cardiovascular-regular rate and rhythm without murmur or ectopy Lungs-clear to auscultation, chest wall stable without crepitus or subcu emphysema Abdomen-normoactive bowel sounds, soft, nontender, no rebound or rigidity, no peritoneal signs. Back exam-there is a well approximated and healing surgical wound over the lumbar region measuring approximately 4 cm in length with rahul still in place. There is no drainage from it. There is no erythema or warmth. Extremities-intact ?4, normal range of motion, normal pulses, atraumatic] Test Results: [CBC with differential is normal. Chemistries normal. hCG was negative. Orthostatic vital signs were negative.] Emergency Department Course and Treatment: [Given 1 liter normal same fluid bolus. I will attempt to contact her surgeon as a courtesy to discuss further.] Treatment Plan: Discharged home in stable condition. Advised to keep scheduled appointment with her surgeon. [] Disposition: [Discharged home in stable condition] Impression: [Syncope-suspect vasovagal Postop pain status post lumbar micro discectomy] This note was generated with [employer] dictation software. It may contain incorrect words, spelling, and punctuation that were not noted in review of the chart prior to signing ED Disposition - Plan for ED Patient: Referrals: Spenser Brown MD [Primary Care Provider] -
[2019-09-03 15:52] LABS: Absolute Lymphocyte Count 2.52 X10^3/uL (0.83-4.51); Absolute Neutrophil Count 6.6 X10^3/uL (2.0-7.7); Basophil# 0.04 X10^3/uL; Basophil% 0.4 % (0-1); Eosinophil# 0.22 X10^3/uL; Eosinophils% 2.2 % (0-5); Hematocrit 43.5 % (37-47); Hemoglobin 14.6 g/dL (12.0-15.0); Lymphocyte # 2.52 X10^3/ul (4.0); Lymphocyte % 24.9 % (19-41); Mean Corp Hgb Conc 33.6 g/dL (32-36); Mean Corpuscular Hgb 30.7 pg (27.0-32.0); Mean Corpuscular Volume 91.6 fL (81-99); Mean Platelet Vol. 10.5 fl (6.2-12.0); Monocyte# 0.68 X10^3/uL; Monocyte% 6.7 % (0-10); NRBC Flagged by Analyzer 0 % (0-5); Neutrophil # 6.63 X10^3/uL (2.7-7.7); Neutrophil % 65.4 % (47-70); Platelet Count 284 K/mm3 (150-450); RBC Distribution Width SD 40.4 fl (35.1-43.9); Red Blood Count 4.75 M/mm3 (4.2-5.4); White Blood Count 10.1 K/mm3 (4.4-11.0)
[2019-09-03 15:53] LABS: Internal QC Validated? YES +Cl - CLEAR BKGD; Pregnancy, Serum, hCG Quali. NEGATIVE Negative
[2019-09-03 15:57] LABS: Anion Gap 6 (5-15); BUN 10 mg/dL (7-18); BUN/Creat Ratio 15.3 RATIO (10-20); Calcium,Total 9.2 mg/dL (8.5-10.1); Chloride 104 mmol/L (98-107); Creatinine, Serum 0.66 mg/dL (0.55-1.02); EST Glomerular Filtration Rate 116 mL/min (>60); Est Glom Filt Rate - Afr Amer 141 mL/min (>60); Estimated Creatinine Clearance 121.98 ml/min; Glucose 88 mg/dL (74-106); Potassium 4.3 mmol/L (3.5-5.1); Sodium Level 138 mmol/L (136-145)
[2019-09-03 16:02] VITALS: BP 116/75; BP 117/73; BP 121/77; PULSE 88; PULSE 92; PULSE 96
--- NOTE | 2019-09-03 16:07 | ED.DEP ---
ED Disposition - Plan for ED Patient: Instructions: SYNCOPE, Vasovagal Referrals: Spenser Brown MD [Primary Care Provider] - Additional Instructions: see your surgeon as scheduled
[2019-09-03 16:33] VITALS: BP 121/77; PULSE 92; RESP 23; O2SAT 98
== END 2019-09-03 16:34 | disposition home or self-care (01) ==
LOC: ED 15:20
PROVIDERS: Emergency Provider Emergency Medicine; Family Provider Internal Medicine; PCP Internal Medicine
DX: R55 Syncope and collapse (principal); G89.18 Other acute postprocedural pain; F41.9 Anxiety disorder, unspecified; F32.9 Major depressive disorder, single episode, unspecified; Z79.899 Other long term (current) drug therapy
CPT/HCPCS: 80048; 84703; 85025; 96360; 99285; J7030; A4216

== ENCOUNTER 2019-11-19 15:30 | Outpatient (RCR) | payer OTHER, SELFPAY ==
--- NOTE | 2019-09-21 08:33 | HP.PTEVAL_ITS ---
Patient's Visit Information MISHA DIOR is a 24 year old F referred to Physical Therapy by VALERIO Trinh with a diagnosis of Left L4-L5 Microdiscectomy 08/31/19. Date of Evaluation: 09/21/19 Physical Therapist: Nancy Kendall DPT - Visit Plan Frequency: 2x /Week Duration: 4 Weeks Plan: Focus on Core strength/stabilization neutral plane. MD recommendations: lumbar isometrics, advance ROM as tolerated after 3 weeks ), wean from brace as tolerated - Subjective Findings: L4-L5 Microdiscectomy by Dr. Lucio Zeng 08/31/19. She feels great after surgery the relief was instant. No pain or a 1/10. Usually later in the day she is more tired and achy just like she worked out. Does have a little bit of numbness in the left foot but its getting better as she goes. Sleep: not disturbed. Restrictions of no lifting, bending, twisting, pushing and pulling. Is wearing a brace. Wears for the work day and if she is on her feet for more than 20 min. MD hopes to have PT wean her out of the brace. 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 Has returned to work and is not having problems. No loss or change in bowel or bladder. Notices lower extremity and weakness due to lack of use no buckling o the LE. PMHx: none- hyperlaxity Meds: Escotalopram, Buspuro. Would like to be able to begin an exercise regimine safely - Objective Posture: FH, RS- can correct but does not maintain. Observation: non fluidity of movement- stiff and guarded. Gait: slightly antalgic- good tigist but decreased stance on the left LE. HR/TR: able but reports more challenging on th e left. SLS: Right: 30 seconds Left: 8 seconds. Lumbar ROM: Flexion: hands to knees, Extn: diminished by 25% with discomfort, SB and rotation: WFL- did not push into extreme or painful ranges, Hip/Knee/Ankle: WNL. Strength: Core: fair minus, Left Hip: 4/5 throughout, Knee: 4/5, Ankle: 4+/5. discomfort with SLR in the quad. Right: 4+/5 Hip, Knee/Ankle: 5/5. Flex: HS: severe, Gastroc: moderate. Dural signs: positive on the left. Sensation/Reflex: WNL - Goals Goal 1:: Patient will be I with HEP and progression Goal Time Frame: 4-6 Weeks Goal 2:: Patient will SLS for 30 sec without LOB on the left Goal Time Frame: 4-6 Weeks Goal 3:: Patient will maintain proper posture t/o tx session to demo increased core s/s. Goal Time Frame: 4-6 Weeks Goal 4:: Patient will report no pain with ADL's. Goal Time Frame: 4-6 Weeks - Rehabilitation Potential Physical Therapy Diagnosis: Patient presents with hypomobility- she has decreased LE and core strength, flex and muscular endurance leading to poor posture and increased pain with ADL's. Rehabilitation Potential: Good - Anticipated Interventions Patient/Client Instruction: Educate patient on: Benefits of Fitness Program Therapeutic Exercise to Include: Strength training, Endurance training, Balance training, Coordination, Agility training, Body mechanics, Postural training, Flexibilty training, Gait and locomotor training, Neuromotor development, Dynamic Lumbar Stabilization, Scapular Strength/Stabilization For the Purpose of:: To improve muscle performance and motor function TENS: Yes Cryotherapy (ice pack, ice massage): Yes Thermo therapy (hot pack): Yes Ultrasound (thermal/non thermal): No Thank you for the opportunity to evaluate your patient. For Medicare and Medicare HMO plans, please review the plan of care and approve it. It will need to be FAXED BACK to us at [phone] for Medicare purposes. For Medicare only, by signing this I certify the plan of care. Please let me know if there are questions or concerns regarding this plan of care. Physician Signature: Date:
--- NOTE | 2019-10-17 15:55 | HP.PTREVAL ---
Julia Seymour, ROYAL-C, It has been my pleasure to treat MISHA DIOR over the last 8 visits for Left L4-L5 Microdiscectomy 08/31/19. Please see the progress note below for an update on the physical therapy plan of care! Subjective: Patient reports that she feels mostly great- tends to take it easier. She feels like she is gaining a lot more. She has a little bit of pain in the back and some soreness and they added new exercises. She feels that she she is 100% of what she expected but does still feel weakness. Feels that she needs to continue therapy to progress exercise. She is 50-70% of PLOF. Endurance and strength are her frustration. Objective/Function: Posture: FH, RS- can correct and can maintain for about 1 minutes Observation: non fluidity of movement- stiff and guarded. Gait: no deviation noted HR/TR:WNL SLS: Right: 30 seconds Left: 20 seconds. Lumbar ROM: Flexion: hands to knees, Extn: diminished by 25% with discomfort, SB and rotation: WFLHip/Knee/Ankle: WNL. Strength: Core: fair minus, Left Hip: 4+/5 throughout, Knee: 5/5, Ankle: 5/5. Right: 4+/5 Hip, Knee/Ankle: 5/5. Flex: HS: severe, Gastroc: moderate. Dural signs: positive on the left. Sensation/Reflex: WNL Plan Plan: Continue current POC 2x a week for 4 weeks- progression of strength and endurance. Goals Goal 1:: Patient will be I with HEP and progression Goal Time Frame: 4-6 Weeks Goal Progress: Progressing Goal 2:: Patient will SLS for 30 sec without LOB on the left Goal Time Frame: 4-6 Weeks Goal Progress: Progressing Goal 3:: Patient will maintain proper posture t/o tx session to demo increased core s/s. Goal Time Frame: 4-6 Weeks Goal Progress: Progressing Goal 4:: Patient will report no pain with ADL's. Goal Time Frame: 4-6 Weeks Goal Progress: Progressing Anticipated Interventions Patient/Client Instruction: Educate patient on: Benefits of Fitness Program Therapeutic Exercise to Include: Strength training, Endurance training, Balance training, Coordination, Agility training, Body mechanics, Postural training, Flexibilty training, Gait and locomotor training, Neuromotor development, Dynamic Lumbar Stabilization, Scapular Strength/Stabilization For the Purpose of:: To improve muscle performance and motor function TENS: Yes Cryotherapy (ice pack, ice massage): Yes Thermo therapy (hot pack): Yes Ultrasound (thermal/non thermal): No Please do not hesitate to contact me at [phone] by phone or if you have questions or concerns regarding this new plan of care! Sincerely, HARVINDER PickettT
--- NOTE | 2019-11-19 16:35 | HP.PTDCSUM ---
HP - PT D/C Summary It has been my pleasure to treat MISHA DIOR referred by IRMA TrinhC, with the diagnosis of Left L4-L5 Microdiscectomy 08/31/19 for a total of 12 visit(s). Discharge Date: Please see the following information for a summary of their discharge status. - Subjective Subjective: Patient reports that her back is doing really well- she has not been doing exercise and she has missed apts so she feels that her back is not as strong as it needs to be. Is back to all of her normal activities. - Overall Improvement % Improvement: 100 - Objective Objective/Function: Posture: good throughout session. Gait: no deviation noted. Sensation: WNL. HR/TR: WNL. SLS: 30 sec bilateral without LOB. ROM: WFL in all planes of lumbar and bilateral LE. Strength: Core: fair plus, Hip: 4+/5, Knee: 5/5, Ankle: 5/5. Flex: HS: mod, Gastroc: mod - Goals Goal 1:: Patient will be I with HEP and progression Goal Progress: Progressing Goal 2:: Patient will SLS for 30 sec without LOB on the left Goal Progress: Progressing Goal 3:: Patient will maintain proper posture t/o tx session to demo increased core s/s. Goal Progress: Progressing Goal 4:: Patient will report no pain with ADL's. Goal Progress: Progressing - Plan Plan: Discharge to I HEP - D/C Information If there are questions or concerns regarding this patient's physical therapy, please feel free to call me at [phone]. Thank you for the referral of this patient. Sincerely, Nancy Kendall DPT
== END 2019-11-19 19:00 | disposition home or self-care (01) ==
LOC: PT 15:30
PROVIDERS: Family Provider Internal Medicine; PCP Internal Medicine; Referring Provider Nurse Practitioner Acute Care; Visit Provider Nurse Practitioner Acute Care
DX: M48.062 Spinal stenosis, lumbar region with neurogenic claudication (principal); M51.26 Other intervertebral disc displacement, lumbar region
CPT/HCPCS: 97110; 97161; 97164

== ENCOUNTER → 2020-05-23 | Outpatient (CLI) | payer OTHER, SELFPAY ==
[2020-05-23 13:35] VITALS: BMI 32.3
== END | disposition home or self-care (01) ==
LOC: MTDU 17:04
PROVIDERS: PCP Internal Medicine; Referring Provider Physician Assistant Surgical; Visit Provider Physician Assistant Surgical
DX: Z20.828 Contact with and (suspected) exposure to other viral communicable diseases (principal)
CPT/HCPCS: 87635; C9803; U0003

== ENCOUNTER → 2020-08-11 08:38 | Outpatient (CLI) | payer BC, SELFPAY ==
[2020-08-11 08:10] VITALS: BMI 37.4
[2020-08-11 12:52] LABS: Absolute Neutrophil Count 5.2 X10^3/uL (2.0-7.7); Basophil# 0.04 X10^3/uL; Basophil% 0.5 % (0-1); Eosinophil# 0.33 X10^3/uL; Eosinophils% 3.9 % (0-5); Hemoglobin 15.2 g/dL (12.0-15.0); Mean Corp Hgb Conc 33.8 g/dL (32-36); Mean Corpuscular Volume 91.6 fL (81-99); Mean Platelet Vol. 11.6 fl (6.2-12.0); Monocyte# 0.61 X10^3/uL; Monocyte% 7.2 % (0-10); NRBC Flagged by Analyzer 0 % (0-5); Neutrophil # 5.21 X10^3/uL (2.7-7.7); Platelet Count 264 K/mm3 (150-450); RBC Distribution Width CV 12.2 % (11.6-14.6); RBC Distribution Width SD 40.5 fl (35.1-43.9); Red Blood Count 4.91 M/mm3 (4.2-5.4); White Blood Count 8.5 K/mm3 (4.4-11.0)
[2020-08-11 13:12] LABS: Hemoglobin A1c 4.9 % (3.8-5.6)
[2020-08-11 13:18] LABS: ALB/GLOB Ratio 1.1 RATIO (0.9-2.4); AST(SGOT) 12 U/L (15-37); Alanine Aminotransfer ALT/SGPT 27 U/L (13-56); Albumin, Serum 4.1 g/dL (3.2-5.0); Alkaline Phosphatase 79 U/L (45-117); Anion Gap 6 (5-15); BUN 13 mg/dL (7-18); BUN/Creat Ratio 18.1 RATIO (10-20); Calcium,Total 9.2 mg/dL (8.5-10.1); Chloride 107 mmol/L (98-107); Creatinine, Serum 0.72 mg/dL (0.55-1.02); EST Glomerular Filtration Rate 104 mL/min (>60); Est Glom Filt Rate - Afr Amer 126 mL/min (>60); Globulin 3.8 g/dL (2.2-4.2); Glucose 88 mg/dL (74-106); Protein, Total 7.9 g/dL (6.4-8.2); Sodium Level 137 mmol/L (136-145)
== END ==
PROVIDERS: PCP Internal Medicine; Visit Provider Internal Medicine
DX: E66.9 Obesity, unspecified (principal); F41.8 Other specified anxiety disorders
CPT/HCPCS: 36415; 80053; 83036; 85025

== ENCOUNTER → 2020-11-03 08:58 | Outpatient (CLI) | payer BC, SELFPAY ==
[2020-09-23 09:01] VITALS: BMI 37.4
[2020-11-03 13:29] LABS: T4 Free Direct 0.82 ng/dL (0.76-1.46); Thyroid Stim Hormone (TSH) 1.79 uIU/mL (0.358-3.74)
== END ==
PROVIDERS: PCP Internal Medicine; Visit Provider Internal Medicine
DX: Z13.29 Encounter for screening for other suspected endocrine disorder (principal)
CPT/HCPCS: 36415; 84439; 84443

== ENCOUNTER → 2020-12-19 | Outpatient (CLI) | payer BC, SELFPAY ==
[2020-12-19 11:43] VITALS: BMI 36.8
[2020-12-25 16:07] LABS: HPV Reflexed? NOT INDICATED
== END | disposition home or self-care (01) ==
LOC: LABSPEC 16:47
PROVIDERS: PCP Internal Medicine; Referring Provider Obstetrics & Gynecology; Visit Provider Obstetrics & Gynecology
DX: Z12.4 Encounter for screening for malignant neoplasm of cervix (principal)
CPT/HCPCS: 88175; G0145

== ENCOUNTER → 2021-01-16 16:47 | Outpatient (CLI) | payer BC, SELFPAY ==
--- NOTE | 2021-01-16 | MISC_PTH ---
PATIENT: MISHA DIOR LOC: LAB U#:[id number] AGE/SX: / ROOM: RE01/16/[address]: Dr. Abby Denson MD : 1995 BED: DIS: SPEC #: [id number] RECD: 01/16/21 16:44 STATUS: SANDRA AHNLiyah #: [id number] AYAZ: 01/16/21 00:[address]: Abby Denson DEPT: SURGICAL PATHOLOGY RECD BY: Edmundo Fuller ENTERED: 01/19/21 08:02 SP TYPE: MISC MAIKOL DR: Dr. Spenser Brown MD Tissues: Skin appendage, NOS Procedures: Surgery Specimen Level IV HEADER OPERATION: Mole removal PRE-OP DIAGNOSIS: Mole TISSUE SUBMITTED: Mole MICROSCOPIC DIAGNOSIS Mole, biopsy: Intradermal nevus. JAMIE:mariella 01/20/2021 MICROSCOPIC DESCRIPTION Slides are reviewed. GROSS DESCRIPTION Received is one container labeled with the patient's name and not further designated. The specimen consists of a piece of roque-light brown skin measuring 0.5 x 0.2 x 0.1 cm. The specimen is inked and submitted entirely in one cassette. / SJ:mariella 01/19/21 TC:1 CPT: 90269
[2021-01-16 13:23] VITALS: BMI 37.5
== END ==
PROVIDERS: PCP Internal Medicine; Referring Provider Obstetrics & Gynecology; Visit Provider Obstetrics & Gynecology
DX: D22.9 Melanocytic nevi, unspecified (principal)
CPT/HCPCS: 88305

== ENCOUNTER → 2021-05-25 | Outpatient (CLI) | payer BC, SELFPAY | END | disposition home or self-care (01) | LOC: LABSPEC 10:23 | PROVIDERS: PCP Internal Medicine; Visit Provider Physician Assistant Surgical | DX: R30.0 Dysuria (principal) | CPT/HCPCS: 87086; 87088 ==

== ENCOUNTER → 2021-05-28 | Outpatient (CLI) | payer BC, SELFPAY ==
[2021-05-28 11:04] LABS: Bacteria 0 SEEN /hpf (None Seen); Mucous, Urine 0 SEEN /hpf (<or=2+); Red Blood Cells-Urine 0 SEEN /hpf (0-5); Squamous Epithelial Cells - UA 0 SEEN /hpf (5-10); White Blood Cells 0 SEEN /hpf (0-5)
[2021-05-28 12:46] LABS: Color, Urine Yellow (Yellow); Glucose, Dipstick Normal (Normal); Ketone-Dipstick Negative (Negative); Leukocyte Esterase-Dipstick Negative /ul (Negative); Nitrite-Dipstick Negative (Negative); Occult Blood-Urine Negative /ul (Negative); Protein-Dipstick Negative (Negative); Urine Bilirubin Dipstick Negative (Negative); Urine Clarity Clear (Clear); Urine Urobilinogen Normal (Normal); Urine pH 6.5 (5.0 - 8.0)
== END | disposition home or self-care (01) ==
LOC: LABSPEC 11:03
PROVIDERS: PCP Internal Medicine; Referring Provider Nurse Practitioner Family; Visit Provider Nurse Practitioner Family
DX: R10.9 Unspecified abdominal pain (principal)
CPT/HCPCS: 81001; 87086; 87088

== ENCOUNTER → 2021-06-18 13:53 | Outpatient (CLI) | payer BC, SELFPAY ==
[2021-06-18 15:00] LABS: Absolute Lymphocyte Count 1.88 X10^3/uL (0.83-4.51); Absolute Neutrophil Count 3.3 X10^3/uL (2.0-7.7); Basophil# 0.04 X10^3/uL; Basophil% 0.7 % (0-1); Eosinophil# 0.25 X10^3/uL; Eosinophils% 4.1 % (0-5); Hemoglobin 14.7 g/dL (12.0-15.0); Lymphocyte # 1.88 X10^3/ul (0.83-4.51); Mean Corp Hgb Conc 33.4 g/dL (32-36); Mean Corpuscular Hgb 30.4 pg (27.0-32.0); Mean Corpuscular Volume 90.9 fL (81-99); Mean Platelet Vol. 11.4 fl (6.2-12.0); Monocyte# 0.51 X10^3/uL; Monocyte% 8.4 % (0-10); NRBC Flagged by Analyzer 0 % (0-5); Neutrophil # 3.32 X10^3/uL (2.7-7.7); Neutrophil % 54.6 % (47-70); Platelet Count 263 K/mm3 (150-450); RBC Distribution Width CV 12.1 % (11.6-14.6); Red Blood Count 4.84 M/mm3 (4.2-5.4); White Blood Count 6.1 K/mm3 (4.4-11.0)
[2021-06-18 15:15] LABS: ALB/GLOB Ratio 1.1 RATIO (0.9-2.4); AST(SGOT) 10 U/L (15-37); Alanine Aminotransfer ALT/SGPT 26 U/L (13-56); Albumin, Serum 3.9 g/dL (3.2-5.0); Alkaline Phosphatase 86 U/L (45-117); Anion Gap 4 (5-15); BUN 10 mg/dL (7-18); BUN/Creat Ratio 11.7 RATIO (10-20); Calcium,Total 9.1 mg/dL (8.5-10.1); Chloride 104 mmol/L (98-107); Cholesterol 151 mg/dL (200); Creatinine, Serum 0.85 mg/dL (0.55-1.02); EST Glomerular Filtration Rate 85 mL/min (>60); Est Glom Filt Rate - Afr Amer 102 mL/min (>60); Globulin 3.7 g/dL (2.2-4.2); Glucose 88 mg/dL (74-106); High Density Lipoprotein 35 mg/dL; Potassium 4.1 mmol/L (3.5-5.1); Protein, Total 7.6 g/dL (6.4-8.2); Sodium Level 139 mmol/L (136-145); Triglycerides 158 mg/dL; Very Low Density Lipoprotein 32 mg/dL (5-40)
== END ==
PROVIDERS: PCP Internal Medicine; Referring Provider Internal Medicine; Visit Provider Internal Medicine
DX: E66.9 Obesity, unspecified (principal); F41.8 Other specified anxiety disorders
CPT/HCPCS: 36415; 80053; 80061; 85025

== ENCOUNTER → 2022-03-01 | Outpatient (CLI) | payer BC, SELFPAY ==
[2022-03-01 12:26] LABS: T4 Free Direct 0.76 ng/dL (0.76-1.46); Thyroid Stim Hormone (TSH) 0.89 uIU/mL (0.358-3.74)
[2022-03-02 15:07] LABS: Thyroid Peroxidase AB 11 IU/mL (0-34)
[2022-03-03 12:17] LABS: Thyroglobulin Antibody < 1.0 IU/mL (0.0-0.9)
== END | disposition home or self-care (01) ==
LOC: PAVLAB 11:21
PROVIDERS: PCP Internal Medicine; Referring Provider Obstetrics & Gynecology; Visit Provider Obstetrics & Gynecology
DX: E01.0 Iodine-deficiency related diffuse (endemic) goiter (principal)
CPT/HCPCS: 36415; 84439; 84443; 86376; 86800

== ENCOUNTER → 2022-03-11 | Outpatient (CLI) | payer BC, SELFPAY ==
--- NOTE | 2022-03-11 13:07 | US_ITS ---
STUDY: ULTRASOUND OF THE FEMALE PELVIS - COMPLETE REASON FOR EXAM: Female, 27 years old. Pelvic pain- iud check LMP: 02/13/2022. TECHNIQUE: Transabdominal and Transvaginal TECHNICAL QUALITY: Adequate. COMPARISON: None. FINDINGS: The uterus is anteverted and is in a midline position. The uterus measures 6.9 cm x 5.1 cm x 3.5 cm. Normal uterine cervix. The endometrium measures 4 mm in thickness, and is hyperechoic. There is no demonstrated endometrial mass. There is no demonstrated myometrial mass. I.U.D. - The patient does have an I.U.D. . It is within the fundal aspect of the endometrial canal. The right ovary is visualized. The right ovary measures 3 cm x 1.9 cm x 1.5 cm. There is no right ovarian cyst or ovarian mass. There is no visualized right adnexal mass or complex lesion. There is normal arterial and normal venous vascularity. The left ovary is visualized. The left ovary measures 2.8 cm x 1.9 cm x 1.4 cm. There is no left ovarian cyst or ovarian mass. There is no visualized left adnexal mass or complex lesion. There is normal arterial and normal venous vascularity. There is no fluid in the cul-de-sac. The pre void volume of the bladder was 344 ml. US/Pelvic (Non ) IMPRESSION: The IUD is within the fundal aspect of the endometrial canal. Electronically Signed: Jasper Clemente MD at 15:08 EDT ,
--- NOTE | 2022-03-11 13:07 | US_ITS ---
STUDY: ULTRASOUND OF THE FEMALE PELVIS - COMPLETE REASON FOR EXAM: Female, 27 years old. Pelvic pain- iud check LMP: 02/13/2022. TECHNIQUE: Transabdominal and Transvaginal TECHNICAL QUALITY: Adequate. COMPARISON: None. FINDINGS: The uterus is anteverted and is in a midline position. The uterus measures 6.9 cm x 5.1 cm x 3.5 cm. Normal uterine cervix. The endometrium measures 4 mm in thickness, and is hyperechoic. There is no demonstrated endometrial mass. There is no demonstrated myometrial mass. I.U.D. - The patient does have an I.U.D. . It is within the fundal aspect of the endometrial canal. The right ovary is visualized. The right ovary measures 3 cm x 1.9 cm x 1.5 cm. There is no right ovarian cyst or ovarian mass. There is no visualized right adnexal mass or complex lesion. There is normal arterial and normal venous vascularity. The left ovary is visualized. The left ovary measures 2.8 cm x 1.9 cm x 1.4 cm. There is no left ovarian cyst or ovarian mass. There is no visualized left adnexal mass or complex lesion. There is normal arterial and normal venous vascularity. There is no fluid in the cul-de-sac. The pre void volume of the bladder was 344 ml. US/Transvaginal Non- IMPRESSION: The IUD is within the fundal aspect of the endometrial canal. Electronically Signed: Jasper Clemente MD at 15:08 EDT ,
--- NOTE | 2022-03-11 13:07 | US_ITS ---
STUDY: THYROID ULTRASOUND REASON FOR EXAM: Female, 27 years old. Thyromegaly. TECHNIQUE: Ultrasound evaluation of the thyroid was performed with real-time and static barclay-scale imaging. COMPARISON: None. FINDINGS: RIGHT LOBE: The right lobe of the thyroid gland is enlarged and measures 5.8 cm x 2.3 cm x 2.1 cm. There is a homogeneous echotexture. There is a 1.9cm x 1.8 cm x 1.1 cm complex solid and cystic nodule in the lower pole. There are nodular and intralobular nodular vascularity is seen. Biopsy recommended. LEFT LOBE: The left lobe of the thyroid gland is enlarged and measures 5.7 cm x 2.1 cm x 2 cm. There is a homogeneous echotexture. There are no demonstrated solid, cystic or complex lesions. ISTHMUS: The isthmus measures 6 mm. The regional lymph nodes are normal. US/Thyroid IMPRESSION: Enlargement of both lobes of the thyroid gland. There is a 1.9 cm x 1.8 cm x 1.1 cm complex solid and cystic nodule in the lower pole of the right lobe. Biopsy recommended. Electronically Signed: Jasper Clemente MD at 15:11 EDT ,
== END | disposition home or self-care (01) ==
PROVIDERS: PCP Internal Medicine; Visit Provider Obstetrics & Gynecology
DX: E01.0 Iodine-deficiency related diffuse (endemic) goiter (principal); Z97.5 Presence of (intrauterine) contraceptive device
CPT/HCPCS: 76536; 76830; 76856

== ENCOUNTER → 2022-04-15 | Outpatient (CLI) | payer BC, SELFPAY ==
--- NOTE | 2022-04-14 14:00 | ASPS_PTH ---
PATIENT: MISHA DIOR LOC: [facility] U#:[id number] AGE/SX: 27/F ROOM: RE04/15/[address]: Dr. Nahid Amado MD : 1995 BED: DIS: 04/15/2022 SPEC #: [id number] RECD: 04/15/22 09:39 STATUS: SANDRA HUIZAR #: [id number] AYAZ: 04/14/22 14:[address]: Nahid Amado DEPT: CYTOLOGY RECD BY: Rose Marie Nixon ENTERED: 04/15/22 10:55 SP TYPE: ASPIRATION OTHR DR: Dr. Spenser Brown MD Tissues: Thyroid gland, NOS Procedures: Special Stain Group II Cytology Other HEADER OPERATION: Right thyroid fine needle aspiration PRE-OP DIAGNOSIS: Right thyroid nodule TISSUE SUBMITTED: Right thyroid nodule x8 slides DIAGNOSIS CYTOLOGY Right thyroid nodule, fine needle aspiration (smears): Consistent with benign follicular/colloid nodule ([place] grade II). Adequate for evaluation. See comment. SJ:mariella 04/16/2022 COMMENT Smears are cellular. Significant atypia is not seen. The findings may represent adenomatoid colloid nodule. Correlation with clinical, radiologic findings and appropriate follow up are necessary. Case has been reviewed in consultation with Dr. Aponte who concurs with the above diagnosis. IDC:AM CYTOLOGY STUDY Slides are reviewed. CYTOLOGY GROSS Received are eight smears labeled with the patient's name and designated per the requisition as right thyroid nodule. Submitted for staining. / mariella 04/15/2022 TC:5 CPT: 18887
== END | disposition home or self-care (01) ==
PROVIDERS: PCP Internal Medicine; Visit Provider Surgery
DX: E04.1 Nontoxic single thyroid nodule (principal)
CPT/HCPCS: 88161; 88313

== ENCOUNTER → 2022-09-15 | Outpatient (CLI) | payer BC, SELFPAY ==
[2022-09-15 15:20] LABS: Absolute Lymphocyte Count 1.75 X10^3/uL (0.83-4.51); Absolute Neutrophil Count 4.5 X10^3/uL (2.0-7.7); Basophil# 0.03 X10^3/uL; Basophil% 0.4 % (0-1); Eosinophil# 0.12 X10^3/uL; Eosinophils% 1.7 % (0-5); Hematocrit 44.7 % (37-47); Hemoglobin 14.7 g/dL (12.0-15.0); Lymphocyte # 1.75 X10^3/ul (0.83-4.51); Lymphocyte % 25.3 % (19-41); Mean Corp Hgb Conc 32.9 g/dL (32-36); Mean Corpuscular Hgb 30.8 pg (27.0-32.0); Mean Corpuscular Volume 93.5 fL (81-99); Mean Platelet Vol. 11.6 fl (6.2-12.0); Monocyte# 0.52 X10^3/uL; Monocyte% 7.5 % (0-10); NRBC Flagged by Analyzer 0 % (0-5); Neutrophil # 4.48 X10^3/uL (2.7-7.7); Neutrophil % 64.8 % (47-70); Platelet Count 240 K/mm3 (150-450); RBC Distribution Width CV 12.4 % (11.6-14.6); RBC Distribution Width SD 43.2 fl (35.1-43.9); Red Blood Count 4.78 M/mm3 (4.2-5.4); White Blood Count 6.9 K/mm3 (4.4-11.0)
[2022-09-15 15:33] LABS: ALB/GLOB Ratio 1.1 RATIO (0.9-2.4); AST(SGOT) 9 U/L (15-37); Alanine Aminotransfer ALT/SGPT 26 U/L (13-56); Albumin, Serum 3.7 g/dL (3.2-5.0); Alkaline Phosphatase 75 U/L (45-117); Anion Gap 5 (5-15); BUN 11 mg/dL (7-18); BUN/Creat Ratio 17.7 RATIO (10-20); Calcium,Total 8.8 mg/dL (8.5-10.1); Chloride 107 mmol/L (98-107); Creatinine, Serum 0.62 mg/dL (0.55-1.02); EST Glomerular Filtration Rate 121 mL/min (>60); Est Glom Filt Rate - Afr Amer 146 mL/min (>60); Globulin 3.5 g/dL (2.2-4.2); Glucose 84 mg/dL (74-106); Protein, Total 7.2 g/dL (6.4-8.2); Sodium Level 139 mmol/L (136-145)
== END | disposition home or self-care (01) ==
PROVIDERS: PCP Internal Medicine; Referring Provider Internal Medicine; Visit Provider Internal Medicine
DX: F41.8 Other specified anxiety disorders (principal); Z20.828 Contact with and (suspected) exposure to other viral communicable diseases
CPT/HCPCS: 36415; 80053; 85025

== ENCOUNTER → 2023-03-05 | Outpatient (CLI) | payer BC, SELFPAY ==
[2023-03-05 11:23] LABS: Hemoglobin A1c 4.9 % (3.8-5.6)
[2023-03-05 11:34] LABS: Cholesterol 158 mg/dL (200); Estradiol 30.1 pg/mL; Follicle Stimulating Hormone 5.9 mIU/mL; High Density Lipoprotein 40 mg/dL; Thyroid Stim Hormone (TSH) 1.72 uIU/mL (0.358-3.74); Triglycerides 98 mg/dL; Very Low Density Lipoprotein 20 mg/dL (5-40)
[2023-03-09 15:08] LABS: 17-Hydroxyprogesterone 33 ng/dL (.)
[2023-03-11 05:07] LABS: Thyroid Peroxidase AB < 9 IU/mL (0-34)
== END | disposition home or self-care (01) ==
LOC: LAB 09:53
PROVIDERS: PCP Internal Medicine; Referring Provider Obstetrics & Gynecology; Visit Provider Obstetrics & Gynecology
DX: E66.8 Other obesity (principal); E01.0 Iodine-deficiency related diffuse (endemic) goiter; Z68.36 Body mass index [BMI] 36.0-36.9, adult; E28.2 Polycystic ovarian syndrome
CPT/HCPCS: 36415; 80061; 82627; 82670; 83001; 83036; 83498; 84402; 84439; 84443; 86376; 82626

== ENCOUNTER → 2023-04-20 | Outpatient (CLI) | payer BC, SELFPAY ==
--- NOTE | 2023-04-20 11:57 | US_ITS ---
INDICATION: thyroid nodule EXAMINATION: Ultrasound US Thyroid (eg thyroid, parathyroid, parotid) TECHNIQUE: Perla scale and color doppler imaging was performed of the thyroid gland. COMPARISON: Prior study dated: March 11, 2022 FINDINGS: RIGHT THYROID LOBE: 6.0 x 2.1 x 2.0 cm. Homogeneous echotexture with normal vascularity. [There is a complex partially solid 2.3 x 1.4 x 1.8 cm nodule within the right lobe that contains minimal peripheral increased vascularity which has increased in size since the prior examination previously measuring 1.9 x 1.1 x 1.8 cm. LEFT THYROID LOBE: 6.1 x 1.9 x 2.0 cm. Homogeneous echotexture with normal vascularity. [No thyroid nodules are present. ISTHMUS: 0.8 cm. No thyroid nodules are present. US/Thyroid IMPRESSION: Interval enlargement of complex nodule within the right lobe of the gland measuring up to 2.3 x 1.4 x 1.8 cm. Enlarged thyroid gland. Electronically Signed: Rabia Cruz MD at 14:18 EDT ,
== END | disposition home or self-care (01) ==
LOC: US 11:55
PROVIDERS: PCP Internal Medicine; Referring Provider Surgery; Visit Provider Surgery
DX: E04.1 Nontoxic single thyroid nodule (principal)
CPT/HCPCS: 76536

== ENCOUNTER → 2023-06-28 | Outpatient (CLI) | payer BC, SELFPAY ==
--- NOTE | 2023-06-27 08:25 | ASPS_PTH ---
PATIENT: MISHA DIOR LOC: [facility] U#:[id number] AGE/SX: 28/F ROOM: RE06/28/[address]: Dr. Nahid Amado MD : 1995 BED: DIS: 06/28/2023 SPEC #: [id number] RECD: 06/28/23 08:36 STATUS: SANDRA GAYE #: [id number] AYAZ: 06/27/23 08:[address]: Nahid Amado DEPT: CYTOLOGY RECD BY: Rose Marie Nixon ENTERED: 06/28/23 09:49 SP TYPE: ASPIRATION OTHR DR: Dr. Spenser Brwon MD Tissues: Thyroid gland, NOS Procedures: Special Stain Group II Cytology Other HEADER OPERATION: Right thyroid fine needle aspiration PRE-OP DIAGNOSIS: Right thyroid nodule TISSUE SUBMITTED: Right thyroid nodule x8 slides DIAGNOSIS CYTOLOGY Right thyroid nodule, fine needle aspiration (smears): Rare clusters of atypical follicular cells of undetermined significance in the background of benign follicular/colloid nodule with cystic changes ([place] Category III). Adequate for evaluation. See comment. JAMIE:mariella 06/28/2023 COMMENT Per recommendations and a clinician-approved plan (a call was made to the referring doctor about the recommendation), genomic testing ([facility]) has been submitted. Results will be reported as an addendum and faxed to clinician. The [place] System for thyroid diagnostic categorization was used in the evaluation of this case. Correlation with clinical, radiologic findings and appropriate follow up are necessary. Please make reference to previous specimen ([id number]), right thyroid nodule, FNA with diagnosis of consistent with benign follicular/colloid nodule. Case has been reviewed in consultation with Dr. Aponte who concurs with the above diagnosis. IDC:AM CYTOLOGY STUDY Slides are reviewed. CYTOLOGY GROSS Received are eight smears labeled with the patient's name and designated per the requisition as right thyroid nodule. Submitted for staining. / mariella 06/27/2023 TC:5 CPT: 66552 ADDENDUM ADDENDUM ADDENDUM ADDENDUM ADDENDUM ADDENDUM ADDENDUM 08/08/2023 09:04 ADDENDUM 08/08/2023 09:04 ADDENDUM 08/08/2023 09:04 ADDENDUM 08/08/2023 09:04 ADDENDUM 08/08/2023 09:04 AFIRMA RESULTS REPORT RESULTS INTERPRETATION: The result of this 1.9 cm [place] III nodule A is Afirma GSC benign, which suggests a low risk of cancer of approximately 4%. Please see complete report in e-chart or EMR
== END | disposition home or self-care (01) ==
LOC: LABSPEC 08:47
PROVIDERS: PCP Internal Medicine; Referring Provider Surgery; Visit Provider Surgery
DX: E04.1 Nontoxic single thyroid nodule (principal)
CPT/HCPCS: 88161; 88313

== ENCOUNTER → 2023-08-22 | Outpatient (CLI) | payer BC, SELFPAY | END | disposition home or self-care (01) | LOC: LABSPEC 16:18 | PROVIDERS: PCP Internal Medicine; Referring Provider Registered Nurse; Visit Provider Registered Nurse | DX: N89.8 Other specified noninflammatory disorders of vagina (principal) | CPT/HCPCS: 87070; 87205 ==

== ENCOUNTER 2023-08-24 15:00 | Outpatient (RCR) | payer BC, SELFPAY ==
--- NOTE | 2023-07-06 15:02 | HP.PTEVAL ---
Patient's Visit Information Visit Information Visit Information: MISHA DIOR is a 28 year old F referred to Physical Therapy by Dr. Lemuel Beauchamp DO with a diagnosis of RIGHT KNEE PAIN. Date of Evaluation: 07/06/23 Physical Therapist: Reji Ramsey, PT, Cert MDT, OCS Visit Plan Frequency: 2x /Week Duration: 4 Weeks Plan: PT INTERVETIONS PRES'S QUADS/HAMS/HIP ,CLOSED CHAIN QUADS STRENGTHENING AND FUNCTION STRENGTHENING AND MODLATIES Subjective Subjective: This 28 y/o female presents tp physical therapy with right knee pain. Patient has right knee many years. Patient has first injury 2008 ,slipped and fell and thought knee subluxed. Most recently felt popped in knee and pushed on knee cap ~ [address] richardson PT and had x-rays showed spurring and OA patella . Location pain medial patella. Described as sharp pain. Aggravating squatting/kneeling and stairs ,elevations from chair. Alleviating factors rest. Patient denies paresthesia/tingling-. Patient sleeps good. Patient pain affects QOL and function. Patient goals to have knee pain. 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 Right Knee: Pain Intensity (Out of 10): 0 Pain Intensity Range: 10 Objective Objective: POSTURE: knee valgus , genu recurvatum ,lateral tracking ,pes planus, patella alt GAIT: reciprocal pattern PALPATION: unremarkable NEURO: denies paresthesia/tingling , reflexes intact AROM: 0-135 degrees (note crepitus) MMT: quads/hams ,hip flexion 4/5 ( peak force) hip abduction 14.8 left ,right 15.9 Special Tests R Knee Mary - Meniscus: Negative R Knee Trupti - ACL: Negative R Knee Valgus - MCL: Negative R Knee Varus - LCL: Negative R Knee Patellar Apprehension - PFS: Positive R Knee Patellar Grind - PFS: Positive Balance/Special Test Scores Lower Extremity Functional Score: 35 Goals Goal 1:: Patient to be I with HEP for knee Goal Time Frame: 4-6 Weeks Goal 2:: Patient to demonstrate 50% improvement with decrease pain and improve function Goal Time Frame: 4-6 Weeks Goal 3:: Patient to improve LFES score by 5 points to improve QOL and function Goal Time Frame: 4-6 Weeks Goal 4:: Patient to perform squatting/kneeling and stairs 50% improvement with less pain Goal Time Frame: 4-6 Weeks Goal 5:: Patient to improve peak force hip abduction by 5-10# force to improve function Goal Time Frame: 4-6 Weeks Rehabilitation Potential Physical Therapy Diagnosis: This patient has patellofemoral syndrome with OA and spurs with weakness especially hips and worse with squatting/kneeling and stairs thus benefit from skilled PT Rehabilitation Potential: Fair Anticipated Interventions Patient/Client Instruction: Educate patient on: Condition and Plan of Care For the Purpose of:: To decrease pain, To decrease swelling/inflammation, To improve muscle performance and motor function, To improve ability to perform ADL's, To increase tolerance to activity/condition/position, To improve ability of physical actions for home/community/work/leisure, To improve health of tissue, To decrease soft tissue restriction, To increase flexibility/ROM and To improve tolerance to ADL's Therapeutic Exercise to Include: Strength training, Balance training, Flexibilty training and Active ROM Comment: QUADS/HAMS/HIP For the Purpose of:: To decrease pain, To increase ROM, To improve muscle performance and motor function, To increase tolerance to activity/condition/position, To improve ability of physical actions for home/community/work/leisure, To improve gait and locomotor functions, To increase flexibility/ROM, To improve balance, To prevent re-injury and To improve tolerance to ADL's TENS: Yes IF ES: Yes Cryotherapy (ice pack, ice massage): Yes Thermo therapy (hot pack): Yes Ultrasound (thermal/non thermal): Yes For the Purpose of:: To decrease pain, To improve nutrient delivery to tissue, To increase oxygenation perfusion, To improve ability to perform ADL's, To increase tolerance to activity/condition/position, To improve ability of physical actions for home/community/work/leisure, To improve gait and locomotor functions, To improve health of tissue and To decrease soft tissue restriction Text: Thank you for the opportunity to evaluate your patient. For Medicare and Medicare HMO plans, please review the plan of care and approve it. It will need to be FAXED BACK to us at [phone] for Medicare purposes. For Medicare only, by signing this I certify the plan of care. Please let me know if there are questions or concerns regarding this plan of care. Physician Signature: Date:
--- NOTE | 2023-12-23 12:10 | HP.PT.NRP ---
Patient Information Patient Information: MISHA DIOR was seen in my office for initial evaluation on 07/06/23. The following Plan of Care was established for this patient: POC Established Initial Frequency: 2x /Week Initial Duration: 4 Weeks Anticipated Interventions Patient/Client Instruction: Educate patient on: Condition and Plan of Care For the Purpose of:: To decrease pain, To decrease swelling/inflammation, To improve muscle performance and motor function, To improve ability to perform ADL's, To increase tolerance to activity/condition/position, To improve ability of physical actions for home/community/work/leisure, To improve health of tissue, To decrease soft tissue restriction, To increase flexibility/ROM and To improve tolerance to ADL's Therapeutic Exercise to Include: Strength training, Balance training, Flexibilty training and Active ROM For the Purpose of:: To decrease pain, To increase ROM, To improve muscle performance and motor function, To increase tolerance to activity/condition/position, To improve ability of physical actions for home/community/work/leisure, To improve gait and locomotor functions, To increase flexibility/ROM, To improve balance, To prevent re-injury and To improve tolerance to ADL's TENS: Yes IF ES: Yes Cryotherapy (ice pack, ice massage): Yes Thermo therapy (hot pack): Yes Ultrasound (thermal/non thermal): Yes For the Purpose of:: To decrease pain, To improve nutrient delivery to tissue, To increase oxygenation perfusion, To improve ability to perform ADL's, To increase tolerance to activity/condition/position, To improve ability of physical actions for home/community/work/leisure, To improve gait and locomotor functions, To improve health of tissue and To decrease soft tissue restriction Last Seen Last Seen: This patient was last seen in our office . Pertinent comments regarding their Physical therapy will appear below: Patient seen for PT for right knee pain. Patient was progressing with decreasing pain and improving strength . Patient was seen for Recheck after several visits thus is D/C. At this point I will be discontinuing this patient from physical therapy. I would be happy to see this patient again in the future if found appropriate by the physician. Thank you! Reji Ramsey, PT, Cert MDT, OCS Balance/Gait/Functional tests Balance/Special Test Scores Lower Extremity Functional Score: 35
== END 2023-08-24 19:00 | disposition home or self-care (01) ==
LOC: PT 15:00
PROVIDERS: PCP Internal Medicine; Referring Provider Orthopaedic Surgery; Visit Provider Orthopaedic Surgery
DX: M25.561 Pain in right knee (principal)
CPT/HCPCS: 97110; 97162; 97530

== ENCOUNTER → 2023-09-21 | Outpatient (CLI) | payer BC, SELFPAY ==
[2023-09-21 15:38] LABS: Absolute Lymphocyte Count 2.36 X10^3/uL (0.83-4.51); Absolute Neutrophil Count 5.2 X10^3/uL (2.0-7.7); Basophil# 0.04 X10^3/uL; Basophil% 0.5 % (0-1); Eosinophil# 0.17 X10^3/uL; Hematocrit 42.8 % (37-47); Hemoglobin 13.8 g/dL (12.0-15.0); Lymphocyte # 2.36 X10^3/ul (0.83-4.51); Lymphocyte % 28.4 % (19-41); Mean Corp Hgb Conc 32.2 g/dL (32-36); Mean Corpuscular Hgb 29.7 pg (27.0-32.0); Mean Corpuscular Volume 92.2 fL (81-99); Mean Platelet Vol. 11.5 fl (6.2-12.0); Monocyte# 0.56 X10^3/uL; Monocyte% 6.7 % (0-10); NRBC Flagged by Analyzer 0 % (0-5); Neutrophil # 5.16 X10^3/uL (2.7-7.7); Neutrophil % 62.2 % (47-70); Platelet Count 278 K/mm3 (150-450); RBC Distribution Width CV 12.2 % (11.6-14.6); RBC Distribution Width SD 41.2 fl (35.1-43.9); Red Blood Count 4.64 M/mm3 (4.2-5.4); White Blood Count 8.3 K/mm3 (4.4-11.0)
[2023-09-21 16:01] LABS: Vitamin B12 330 pg/mL (211-911)
[2023-09-21 16:09] LABS: AST(SGOT) 15 U/L (15-37); Alanine Aminotransfer ALT/SGPT 23 U/L (13-56); Albumin, Serum 3.8 g/dL (3.2-5.0); Alkaline Phosphatase 73 U/L (45-117); Anion Gap 6 (5-15); BUN 15 mg/dL (7-18); BUN/Creat Ratio 18.8 RATIO (10-20); Chloride 106 mmol/L (98-107); EST Glomerular Filtration Rate 90 mL/min (>60); Est Glom Filt Rate - Afr Amer 109 mL/min (>60); Globulin 3.9 g/dL (2.2-4.2); Glucose 101 mg/dL (74-106); Potassium 4.1 mmol/L (3.5-5.1); Protein, Total 7.7 g/dL (6.4-8.2); Sodium Level 138 mmol/L (136-145)
== END | disposition home or self-care (01) ==
LOC: BIMLAB 14:00
PROVIDERS: PCP Internal Medicine; Referring Provider Internal Medicine; Visit Provider Internal Medicine
DX: G62.9 Polyneuropathy, unspecified (principal); F41.8 Other specified anxiety disorders
CPT/HCPCS: 36415; 80053; 82607; 85025

== ENCOUNTER → 2023-10-25 | Outpatient (CLI) | payer BC, SELFPAY ==
--- OUTSIDE RECORDS SUMMARY | 2023-10-25 07:06 | XMS RPT_ITS | CCD ---
Author Name Unknown Address [address] [place] [address] Organization [facility] Care Team Providers Care [facility] Consultant Name Role Phone Nickie Shafer Primary Care Provider NICKIE SHAFER Primary Care Unavailable NICKIE SHAFER Primary Care Unavailable Allergies Allergy Classification Reported Allergen(s) Allergy Type Date of Onset Reaction(s) Facility (2 sources) Amoxicillin; Translations: [AMOXICILLIN] Drug Allergy 07-14-2015 Anaphylaxis [facility] (2 sources) Codeine; Translations: [CODEINE] Drug Allergy 07-14-2015 Anaphylaxis [facility] Medications Current Medications Medication Drug Class(es) Dates Sig (Normalized) Sig (Original) doxycycline hyclate 100 mg oral capsule (1 source) Tetracycline-clas s Drug Start: 06-29-2022 End: 06-30-2022 take 2 capsules by mouth once daily doxycycline hyclate (VIBRAMYCIN) 100 mg capsule Indications: Tick bite of left thigh, initial encounter Take 2 capsules by mouth once daily for 1 day. 2 capsule 0 06/29/2022 06/30/2022 Active Completed/Discontinued Medications Medication Drug Class(es) Dates Sig (Normalized) Sig (Original) 24 hr buPROPion hydrochloride 150 mg extended release oral tablet (1 source) Aminoketone Start: 03-09-2022 buPROPion XL (WELLBUTRIN XL) 150 mg 24 hr tablet busPIRone hydrochloride 10 mg oral tablet (1 source) take 1 tablet by mouth three times daily busPIRone (BUSPAR) 10 mg tablet Take 10 mg by mouth three times daily. 0 Active Problems Active Problems Problem Classification Problem Date Documented Da te Episodic/Chronic Superficial injury; contusion (1 source) Tick bite; Translations: [Insect bite (nonvenomous), left thigh, initial encounter] Episodic Past or Other Problems Problem Classification Problem Date Documented Da te Episodic/Chronic Nonmalignant breast conditions (1 source) Breast lump; Translations: [Unspecified lump in unspecified breast] Onset: 07-18-2015 07-18-2015 Episodic Results Test Name Value Interpretation Reference Range Facil ity Vital Signs Date Time Vital Sign Value Performing Clinician Faci loriy 06-29-2022 12:32-0400 Body temperature 98.01 [degF] Kassie Díazler-Gilberto LABORATORY SECRETARY.GEOPHYSICS TEACHER Work Phone: [facility] 06-29-2022 12:32-0400 Body weight 102.88 kg Kassie Dominique-Gilberto LABORATORY SECRETARY.GEOPHYSICS TEACHER Work Phone: [facility] 06-29-2022 12:32-0400 Diastolic blood pressure 90 mm[Hg] Kassie Díazler-Gilberto LABORATORY SECRETARY.GEOPHYSICS TEACHER Work Phone: [facility] 06-29-2022 12:32-0400 Heart rate 113 /min Kassie Dominique-Gilberto LABORATORY SECRETARY.GEOPHYSICS TEACHER Work Phone: [facility] 06-29-2022 12:32-0400 Respiratory rate 18 /min Kassie Díazler-Gilberto LABORATORY SECRETARY.GEOPHYSICS TEACHER Work Phone: [facility] 06-29-2022 12:32-0400 SaO2% (BldA) [Mass fraction] 98 % Kassie Díazler-Gilberto LABORATORY SECRETARY.GEOPHYSICS TEACHER Work Phone: [facility] 06-29-2022 12:32-0400 Systolic blood pressure 128 mm[Hg] Kassie Díazler-Gilberto LABORATORY SECRETARY.GEOPHYSICS TEACHER Work Phone: [facility] Encounters Encounter Date Encounter Type Care Provider Facility Start: 09-29-2022 End: 09-29-2022 ambulatory [facility] Facility:[facility] Start: 06-29-2022 End: 06-29-2022 ambulatory [facility] Facility:[facility] Start: 06-29-2022 End: 06-29-2022 Patient encounter procedure Kassie Harris APRN.GEOPHYSICS TEACHER Work Phone: [facility] Care Plan of Treatment Date Care Activity Detail Author Start: 05-13-2022 Influenza vaccination INFLUENZA (#1) [facility] Start: 09-12-2021 DEPRESSION ASSESSMENT DEPRESSION ASS ESSMENT [facility] Start: 06-04-2021 COVID-19 VACCINE (3 - Booster for Moderna series) COVID-19 VACCINE (3 - Booster for Moderna series) [facility] Start: 12-18-2018 Urine microalbumin profile DTA P,TDAP,TD (2 - Td or Tdap) [facility] Start: 07-14-2018 PAP TESTING PAP TESTING [facility] Start: 01-19-2012 HEPATITIS C SCREENING HEPATITIS C SC REENING [facility] Start: 01-19-2012 HIV SCREENING HIV SCREENING [facility] Start: 1994 HEPATITIS B (1 of 3 - 3-dose series) HEPATITIS B (1 of 3 - 3-dose series) [facility] Immunizations Immunization Date Immunization Notes Care Provider Juan new 01-10-2009 hepatitis A vaccine, unspecified formulation Kassie Harris LABORATORY SECRETARY.[facility] Work Phone: [facility] Work Phone: 12-18-2008 tetanus toxoid, redu helene diphtheria toxoid, and acellular pertussis vaccine, adsorbed Kassie Harris LABORATORY SECRETARY.[facility] Work Phone: [facility] Work Phone: Payers Date Payer Category Payer Unknown [employer] PPO OOS [id number] 2020-Present [phone] [facility] [id number] [place] [address] PPO [id number] 2020 Unknown [id number] Social History Date Type Detail Facility Start: 07-14-2015 Tobacco smoking stat us [facility] Never smoked tobacco [facility] Start: 07-14-2015 Tobacco use and exposure Smoke less tobacco non-user [facility] Start: 06-29-2022 Alcohol intake Current drinke r of alcohol (finding) [facility] Start: 07-14-2015 Alcohol Comment rare [facility] Start: 1995 Sex Assigned At Not on file [facility] Start: 06-19-2022 End: 06-29-2022 Exposure to SARS-CoV-2 (event) Not sure [facility] Progress note 06-29-2022 Note Date & Type Note Facility 06-29-2022 Note HNO ID: [id number] Author: Kassie Harris APRN.GEOPHYSICS TEACHER Service: ? Author Type: Nurse Practitioner Type: Progress Notes Filed: 06/29/2022 1:32 PM Note Text: Subjective Trauma Pertinent negatives include no chills, fever, myalgias or rash. Misha Garcia is a 27 year old female who presents with a tick bite on her left upper thigh. She felt some tugging on her skin and picked at the area and pulled a tick off. It was not engorged. She is unsure how long it was present. She has a dog and he occasionally brings ticks in with him. She cleaned the area by showering and wiped the area with an alcohol pad. She has a red santy where she was bitten, the area is tender. She has not had a fever. Review of Systems Constitutional: Negative for chills and fever. Respiratory: Negative. Cardiovascular: Negative. Musculoskeletal: Negative for joint pain and myalgias. Skin: Negative for itching and rash. BP 128/90 Pulse 113 Temp 36.7 ?C (98 ?F) Resp 18 Wt 102.9 kg (226 lb 12.8 oz) LMP 06/25/2022 SpO2 98% BMI 36.89 kg/m? PAST MEDICAL HISTORY Diagnosis Date NEGATIVE MEDICAL HISTORY PAST SURGICAL HISTORY Procedure Laterality Date BX BREAST W/DEVICE 1ST LESION ULTRASOUND GUID Right 08/06/15 U/S right breast bx x 2 INSERTION OF IUD 08/28/2015 ALLERGIES Amoxicillin and Codeine MEDICATIONS levonorgestrel (KAYODE INTRAUTERINE) by INTRAUTERINE route. escitalopram oxalate (LEXAPRO) 10 mg tablet Take 10 mg by mouth once daily. busPIRone (BUSPAR) 10 mg tablet Take 10 mg by mouth three times daily. gabapentin (NEURONTIN) 300 mg capsule Take 300 mg by mouth four times daily. cyclobenzaprine (FLEXERIL) 10 mg tablet Take 10 mg by mouth twice daily as needed. buPROPion XL (WELLBUTRIN XL) 150 mg 24 hr tablet doxycycline hyclate (VIBRAMYCIN) 100 mg capsule Take 2 capsules by mouth once daily for 1 day. levonorgestrel (MIRENA) 20 mcg/24 hr (5 years) IUD Inserted in office (Patient not taking: Reported on 06/29/2022) FAMILY HISTORY Problem Relation Age of Onset Breast Cancer Maternal Grandmother Breast Cancer Paternal Grandmother Asthma Mother Seizures Mother Heart Father all organs flipped on oppisite sides Social History Tobacco Use Smoking status: Never Smokeless tobacco: Never Substance Use Topics Alcohol use: Yes Comment: rare Drug use: No Objective Physical Exam Vitals and nursing note reviewed. Constitutional: Appearance: She is obese. Cardiovascular: Rate and Rhythm: Normal rate. Pulmonary: Effort: Pulmonary effort is normal. Skin: General: Skin is warm and dry. Findings: Erythema present. No rash. Neurological: Mental Status: She is alert. ASSESSMENT/PLAN: 1. Tick bite of left thigh, initial encounter - ICD9: 916.4, E906.4, ICD10: S70.362A, W57.XXXA - DOXYCYCLINE HYCLATE 100 MG CAPSULE - Follow-up with your PCP in 3-5 days if symptoms have not improved or sooner if symptoms worsen - Discussed red flags and need for immediate medical evaluation if any occur. - Discussed supportive care treatment with fluids, rest and analgesia. - Discussed expected course of illness Kassie Harris APRN.CNP [facility] History of Present illness Narrative 06-29-2022 Kassie Harris APRN.ANDRES - 06/29/2022 12:55 PM EDT Note Date & Type Note Facility 06-29-2022 History of Presen t illness Narrative Images from the original note were not included. Subjective Trauma Pertinent negatives include no chills, fever, myalgias or rash. Misha Garcia is a 27 year old female who presents with a tick bite on her left upper thigh. She felt some tugging on her skin and picked at the area and pulled a tick off. It was not engorged. She is unsure how long it was present. She has a dog and he occasionally brings ticks in with him. She cleaned the area by showering and wiped the area with an alcohol pad. She has a red santy where she was bitten, the area is tender. She has not had a fever. Review of Systems Constitutional: Negative for chills and fever. Respiratory: Negative. Cardiovascular: Negative. Musculoskeletal: Negative for joint pain and myalgias. Skin: Negative for itching and rash. BP 128/90 Pulse 113 Temp 36.7 C (98 F) Resp 18 Wt 102.9 kg (226 lb 12.8 oz) LMP 06/25/2022 SpO2 98% BMI 36.89 kg/m PAST MEDICAL HISTORY Diagnosis Date NEGATIVE MEDICAL HISTORY PAST SURGICAL HISTORY Procedure Laterality Date BX BREAST W/DEVICE 1ST LESION ULTRASOUND GUID Right 08/06/15 U/S right breast bx x 2 INSERTION OF IUD 08/28/2015 ALLERGIES Amoxicillin and Codeine MEDICATIONS levonorgestrel (KAYODE INTRAUTERINE) by INTRAUTERINE route. escitalopram oxalate (LEXAPRO) 10 mg tablet Take 10 mg by mouth once daily. busPIRone (BUSPAR) 10 mg tablet Take 10 mg by mouth three times daily. gabapentin (NEURONTIN) 300 mg capsule Take 300 mg by mouth four times daily. cyclobenzaprine (FLEXERIL) 10 mg tablet Take 10 mg by mouth twice daily as needed. buPROPion XL (WELLBUTRIN XL) 150 mg 24 hr tablet doxycycline hyclate (VIBRAMYCIN) 100 mg capsule Take 2 capsules by mouth once daily for 1 day. levonorgestrel (MIRENA) 20 mcg/24 hr (5 years) IUD Inserted in office (Patient not taking: Reported on 06/29/2022) FAMILY HISTORY Problem Relation Age of Onset Breast Cancer Maternal Grandmother Breast Cancer Paternal Grandmother Asthma Mother Seizures Mother Heart Father all organs flipped on oppisite sides Social History Tobacco Use Smoking status: Never Smokeless tobacco: Never Substance Use Topics Alcohol use: Yes Comment: rare Drug use: No Objective Physical Exam Vitals and nursing note reviewed. Constitutional: Appearance: She is obese. Cardiovascular: Rate and Rhythm: Normal rate. Pulmonary: Effort: Pulmonary effort is normal. Skin: General: Skin is warm and dry. Findings: Erythema present. No rash. Neurological: Mental Status: She is alert. ASSESSMENT/PLAN: 1. Tick bite of left thigh, initial encounter - ICD9: 916.4, E906.4, ICD10: S70.362A, W57.XXXA - DOXYCYCLINE HYCLATE 100 MG CAPSULE - Follow-up with your PCP in 3-5 days if symptoms have not improved or sooner if symptoms worsen - Discussed red flags and need for immediate medical evaluation if any occur. - Discussed supportive care treatment with fluids, rest and analgesia. - Discussed expected course of illness Kassie Harris APRN.CNP documented in this encounter [facility] Instructions 06-29-2022 Patient Instructions Note Date & Type Note Facility 06-29-2022 Instructions Kassie Harris APRN.CNP - 06/29/2022 12:47 PM EDT ASSESSMENT/PLAN: 1. Tick bite of left thigh, initial encounter - ICD9: 916.4, E906.4, ICD10: S70.362A, W57.XXXA - DOXYCYCLINE HYCLATE 100 MG CAPSULE ASSESSMENT/PLAN: 1. Tick bite of left thigh, initial encounter - ICD9: 916.4, E906.4, ICD10: S70.362A, W57.XXXA - DOXYCYCLINE HYCLATE 100 MG CAPSULE - Follow-up with your PCP in 3-5 days if symptoms have not improved or sooner if symptoms worsen - Discussed red flags and need for immediate medical evaluation if any occur. - Discussed supportive care treatment with fluids, rest and analgesia. - Discussed expected course of illness Kassie Harris APRN.CNP Avoiding Tick Bites How can I avoid tick bites? If you are planning an outdoor activity, especially those in a heavily wooded area, it is important to follow a few simple precautions to protect yourself from tick bites. Wear long sleeved, light-colored clothing, with tightly woven fabric. This gives ticks less area to target and allows you to see ticks on your clothing. When traveling through the [place] or grassy pick[place], stay near the center of the trails. At home, make sure that you keep your lawn mowed and bushes and trees trimmed as short as possible. If you choose to apply tick repellents, such as those containing DEET, try to avoid spraying them directly to your bare skin. (high concentrations of DEET may have harmful effects on the nervous system.) Apply the spray to your clothing, socks, shoes, tents and backpacks. When returning from the outdoors, check for ticks. Be especially observant of hair, body folds, ears, underarms and the back. Check your clothes and gear for ticks and wash these items immediately. What if I have been bitten by a tick? If you discover a tick, remove it immediately. The longer the tick feeds, the greater chance that it can transmit its bacteria to you. The easiest removal method is to use a pair of tweezers, grasp the tick as close to your skin as possible, and gently pull the tick off. Then, thoroughly wash your hands and the bite area with rubbing alcohol to prevent transmission to other areas of your body. When should I call the doctor? It is best to wait and see whether you develop any signs or symptoms. If a large red santy forms around the tick bite or if you develop fever, flu-like symptoms, rash, or more severe illness, contact your doctor right away. Your doctor can determine whether these symptoms might be caused by a tick-borne disease, and whether antibiotics will be needed. Is there a vaccine for preventing tick-borne disease in humans? Currently there are vaccines being tested, but there are no guarantees that they will be effective. The best option is to take precautions so that tick bites do not occur in the first place. Early Signs and Symptoms (3 to 30 days after tick bite) Fever, chills, headache, fatigue, muscle and joint aches, and swollen lymph nodes Erythema migrans (EM) rash: Occurs in approximately 70 to 80 percent of infected persons Begins at the site of a tick bite after a delay of 3 to 30 days (average is about 7 days) Expands gradually over a period of days reaching up to 12 inches or more (30 cm) across May feel warm to the touch but is rarely itchy or painful Sometimes clears as it enlarges, resulting in a target or bull's-eye appearance May appear on any area of the body Later Signs and Symptoms (days to months after tick bite) Severe headaches and neck stiffness Additional EM rashes on other areas of the body Arthritis with severe joint pain and swelling, particularly the knees and other large joints. Facial or Gay's palsy (loss of muscle tone or droop on one or both sides of the face) Intermittent pain in tendons, muscles, joints, and bones Heart palpitations or an irregular heart beat (Lyme carditis) Episodes of dizziness or shortness of breath Inflammation of the brain and spinal cord Nerve pain Shooting pains, numbness, or tingling in the hands or feet Problems with short-term memory documented in this encounter [facility] Evaluation note Note Date & Type Note Facility documented in this encounter [facility] Summary Purpose Family History No Family History Records Found Advance Directives No Advanced Directives Records Found Additional Source Comments Source Comments (unrecognize d section and content) In the event this informatio n is protected by the Federal Confidentiality of Alcohol and Drug Abuse Patient Records regulations: The Federal rules restrict any use of the information to criminally investigate or prosecute any alcohol or drug abuse patient.[facility] Reason for Visit (unrecogniz ed section and content) Care Teams (unrecognized sec tion and content) INFORMATION SOURCE (unrecogn ized section and content) FOR RECORDS PERTAINING TO PATIENTS WHO ARE OR HAVE BEEN ENROLLED IN A CHEMICAL DEPENDENCY/SUBSTANCEABUSE PROGRAM, SOME INFORMATION MAY BE OMITTED. This clinical summary was aggregated from multiple sources. Caution should be exercised in using it in the provision of clinical care. This summary normalizes information from multiple sources, and as a consequence, information in this document may materially change the coding, format and clinical context of patient data. In addition, data may be omitted in some cases. CLINICAL DECISIONS SHOULD BE BASED ON THE PRIMARY CLINICAL RECORDS. [employer] provides no warranty or guarantee of the accuracy or completeness of information in this document.
== END | disposition home or self-care (01) ==
PROVIDERS: PCP Internal Medicine; Referring Provider Physician Assistant; Visit Provider Physician Assistant
DX: R00.2 Palpitations (principal)
CPT/HCPCS: 93225; 93226

== ENCOUNTER → 2024-05-21 | Outpatient (CLI) | payer BC, SELFPAY ==
--- NOTE | 2024-05-21 11:44 | US_ITS ---
STUDY: THYROID ULTRASOUND REASON FOR EXAM: Female, 29 years old. yearly nodule TECHNIQUE: Ultrasound evaluation of the thyroid was performed with real-time and static barclay-scale imaging. COMPARISON: Prior thyroid ultrasound dated April 20, 2023 FINDINGS: RIGHT LOBE: The right lobe of the thyroid gland measures 5.5 x 2.5 x 1.5 cm, previously measuring 6.0 x 2.0 x 2.1 cm. There is a heterogeneous echotexture. Slight interval decrease in overall size of the known mixed solid and cystic nodule in the anterior medial aspect of the right lobe near the isthmus junction that measures 2.0 x 1.6 x 1.0 cm on the current study, previously measuring 2.3 x 1.8 x 1.4 cm. This is compatible with either a focus of multinodular goiter or a mixed cystic and solid adenomatous nodule with smooth well-defined borders and no suspicion of malignancy. LEFT LOBE: The left lobe of the thyroid gland measures 5.1 x 2.3 x 1.7 cm, previously measuring 6.1 x 2.0 x 1.9 cm. There is a heterogeneous echotexture. There are no demonstrated solid, cystic or complex lesions. ISTHMUS: The isthmus measures . The regional lymph nodes are normal. US/Thyroid IMPRESSION: 1. Slight interval decrease in overall size of the known mixed solid and cystic nodule in the anterior medial aspect of the right lobe near the isthmus junction that measures 2.0 x 1.6 x 1.0 cm on the current study, previously measuring 2.3 x 1.8 x 1.4 cm. This is compatible with either a focus of multinodular goiter or a mixed cystic and solid adenomatous nodule with smooth well-defined borders and no suspicion of malignancy. 2. TR2: 2 points = not suspicious ACR Thyroid Imaging Reporting and Data System (ACR TI-RADS) Reference: COMPOSITION (choose 1): Cystic or almost completely cystic - 0 points Spongiform- 0 points Mixed cystic and solid - 1 point Solid almost completely solid - 2 points ECHOGENICITY (choose 1): Anechoic space - 0 points Hyperechoic or isoechoic-1 point Hypoechoic-2 points Very hypoechoic-3 points SHAPE (choose 1): : Wider than tall-0 points Taller than wide-3 points MARGINS ( smooth, lobular, ill-defined) ECHOGENIC FOCI (macro or microcalcifications) Scoring and classification TR1: 0 points = benign TR2: 2 points = not suspicious TR3: 3 points = mildly suspicious TR4: 4-6 points = moderately suspicious TR5: ?7 points = highly suspicious Recommendations TR1: no FNA required TR2: no FNA required TR3: ?1.5 cm follow up, ?2.5 cm FNA = follow up: 1, 3 and 5 years TR4: ?1.0 cm follow up, ?1.5 cm FNA = follow up: 1, 2, 3 and 5 years TR5: ?0.5 cm follow up, ?1.0 cm FNA = annual follow up for up to 5 years FNA biopsy is recommended for suspicious lesions (TR3-TR5) with the above size criteria. If there are multiple nodules, the two with the highest ACR TI-RADS scores should be sampled (rather than the two largest), with largest size being used a tie-breaker if there are multiple nodules of the same classification. Electronically Signed: Ryan Pollock MD at 16:04 EDT Reading Location ID and State: [facility] / [place] , Service support ,
== END | disposition home or self-care (01) ==
PROVIDERS: PCP Internal Medicine; Referring Provider Surgery; Visit Provider Surgery
DX: E04.1 Nontoxic single thyroid nodule (principal)
CPT/HCPCS: 76536

== ENCOUNTER → 2024-05-25 | Outpatient (CLI) | payer BC, SELFPAY ==
[2024-05-25 10:42] LABS: Absolute Lymphocyte Count 2.07 X10^3/uL (0.83-4.51); Absolute Neutrophil Count 4.2 X10^3/uL (2.0-7.7); Basophil# 0.05 X10^3/uL; Basophil% 0.7 % (0-1); Eosinophil# 0.12 X10^3/uL; Eosinophils% 1.8 % (0-5); Hematocrit 42.6 % (37-47); Hemoglobin 13.9 g/dL (12.0-15.0); Lymphocyte # 2.07 X10^3/ul (0.83-4.51); Lymphocyte % 30.2 % (19-41); Mean Corp Hgb Conc 32.6 g/dL (32-36); Mean Corpuscular Hgb 29.5 pg (27.0-32.0); Mean Corpuscular Volume 90.4 fL (81-99); Mean Platelet Vol. 10.9 fl (6.2-12.0); Monocyte# 0.43 X10^3/uL; Monocyte% 6.3 % (0-10); NRBC Flagged by Analyzer 0 % (0-5); Neutrophil # 4.16 X10^3/uL (2.7-7.7); Neutrophil % 60.7 % (47-70); Platelet Count 258 K/mm3 (150-450); RBC Distribution Width CV 12.1 % (11.6-14.6); RBC Distribution Width SD 40.7 fl (35.1-43.9); Red Blood Count 4.71 M/mm3 (4.2-5.4); White Blood Count 6.9 K/mm3 (4.4-11.0)
[2024-05-25 11:19] LABS: ALB/GLOB Ratio 0.9 RATIO (0.9-2.4); AST(SGOT) 13 U/L (15-37); Alanine Aminotransfer ALT/SGPT 23 U/L (13-56); Albumin, Serum 3.5 g/dL (3.2-5.0); Alkaline Phosphatase 66 U/L (45-117); Anion Gap 5 (5-15); BUN 9 mg/dL (7-18); BUN/Creat Ratio 13.6 RATIO (10-20); Calcium,Total 9.5 mg/dL (8.5-10.1); Chloride 108 mmol/L (98-107); Creatinine, Serum 0.66 mg/dL (0.55-1.02); EST Glomerular Filtration Rate 111 mL/min (>60); Est Glom Filt Rate - Afr Amer 135 mL/min (>60); Globulin 3.8 g/dL (2.2-4.2); Glucose 105 mg/dL (74-106); Potassium 4.5 mmol/L (3.5-5.1); Protein, Total 7.3 g/dL (6.4-8.2); Sodium Level 139 mmol/L (136-145)
[2024-05-25 11:32] LABS: Free T3 2.7 pg/mL (2.18-3.98); T4 Free Direct 1.04 ng/dL (0.76-1.46)
== END | disposition home or self-care (01) ==
LOC: LAB 09:59
PROVIDERS: PCP Internal Medicine; Referring Provider Surgery; Visit Provider Surgery
DX: F41.8 Other specified anxiety disorders (principal); Z13.29 Encounter for screening for other suspected endocrine disorder
CPT/HCPCS: 36415; 80053; 84439; 84443; 84481; 85025

== ENCOUNTER → 2024-07-25 | Outpatient (CLI) | payer BC, SELFPAY ==
[2024-07-25 12:32] LABS: Cholesterol 144 mg/dL (200); High Density Lipoprotein 54 mg/dL; Triglycerides 128 mg/dL; Very Low Density Lipoprotein 26 mg/dL (5-40)
== END | disposition home or self-care (01) ==
PROVIDERS: PCP Internal Medicine; Referring Provider Obstetrics & Gynecology; Visit Provider Obstetrics & Gynecology
DX: Z13.29 Encounter for screening for other suspected endocrine disorder (principal); Z13.220 Encounter for screening for lipoid disorders
CPT/HCPCS: 36415; 80061; 83036; 84443

== ENCOUNTER → 2024-08-15 | Outpatient (CLI) | payer BC, SELFPAY ==
--- NOTE | 2024-08-15 16:12 | RAD_ITS ---
INDICATION: Lumbar radiculopathy EXAMINATION/TECHNIQUE: X-RAY - XR Spine Lumbar 2 or 3 Views COMPARISON: Prior study dated: [1318 FINDINGS: VERTEBRAE: Preserved vertebral body height. No fracture. No spondylolisthesis. Preservation of the normal lumbar lordosis. Mild levoscoliosis. DISCS: Narrowing of L4-L5 and L5-S1 disc spaces increased since previous exam. INCLUDED ABDOMEN: Included bowel gas pattern is non-obstructive. RAD/Lumbar Spine 2 or 3 Views IMPRESSION: Narrowing of L4-5 and L5-S1 disc spaces. Electronically Signed: Sebas Sarmiento MD at 17:47 EST ,
== END | disposition home or self-care (01) ==
LOC: MTRAD 16:09
PROVIDERS: PCP Internal Medicine; Referring Provider Internal Medicine; Visit Provider Internal Medicine
DX: M54.16 Radiculopathy, lumbar region (principal)
CPT/HCPCS: 72100

== ENCOUNTER → 2024-08-24 | Outpatient (CLI) | payer BC, SELFPAY ==
[2024-08-31 19:07] LABS: HPV APTIMA, High Risk Negative (Negative)
== END | disposition home or self-care (01) ==
PROVIDERS: PCP Internal Medicine; Referring Provider Obstetrics & Gynecology; Visit Provider Obstetrics & Gynecology
DX: Z12.4 Encounter for screening for malignant neoplasm of cervix (principal)
CPT/HCPCS: 87624; 88175; G0145

== ENCOUNTER 2024-12-26 15:30 | Outpatient (RCR) | payer BC, SELFPAY ==
--- NOTE | 2024-10-03 18:57 | HP.PTEVAL_ITS ---
Patient's Visit Information Visit Information Visit Information: MISHA DIOR is a 29 year old F referred to Physical Therapy by Dr. Enrrique Dewitt MD with a diagnosis of Strain of muscle fascia and tendon, spondylosis/dorsalgia. Date of Evaluation: 10/03/24 Physical Therapist: SHAWNA Ceballos Visit Plan Frequency: 2x /Week Duration: 2 Months Plan: see effectivness of prone press up 2X/ week for 8 weeks for centralization of sx, core stability, postural exercises with HEP HEP: prone press up Subjective Subjective: Pt was here 5 years ago for back pain and she ended up having a micro for HD. Starting in February she had an episode of pain and it did not fully go away. It has been pretty consistent since February. She decided she needed to see the Dr and met with a new surgeon. She had an x-ray. There is some thinning where the HD was and the one lower than that. He was not surprised by that. She has worked to maintain some of the exercises that she did last PT session ( bug) bridges and stretches) and she is not consistent but does do them. Her current symptoms (numbness in B feet now on the R side (L was from the surgery) and gets pain all the way down the R leg (burning, pain etc). She takes meloxicam daily and Gabapentin 80% of the time. She is able to sleep at night most of the time but does take pain meds at night. She reports that she is better standing and sitting is the worst. Laying down is the best. 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 Stairs: not an issue for her back but has bad knees. She does feel that she has LE weakness on bad days. The numbness on the R side does come and go. Pain back pain: Pain Intensity (Out of 10): 3 R leg pain\: Pain Intensity (Out of 10): 0 Comment: numbness in feet 1/10 Objective Objective: Gait: Walks with decrease stride length and no trunk rotation Pt has some weakness with DF. Pt is able to heel raise without an issue. LE MMT: R hip flex 13.9 and L 12.6 R knee ext 15.1 and L 12.3 R knee flex 6.4 and L 7.6 R hip abd 11.2 and 14.8 R hip ext 12.8 and L 11.3 Trunk AROM: flex 100, ext 50% (increase pain), SB B 50%, ROT B 50% Full Bridge +SLR on R for R sided back pain and negative on the L Patellar DTR 3+/3 B Prone lying; baseline back pain... Prone to JAMA... baseline pain but no worse..... Prone to JAMA X 10.... increase pain while doing the movement but resolved back to baseline in 2 minutes. Repeated Prone to JAMA holding JAMA X 5 seconds.....still increased her back pain but not as bad (we changed the way she did the Prone to JAMA with less trunk rotation) and returned to baseline pain at at 2 minutes. Press up 1 X 5 (feels close to baseline) and the another 1 X 5 (feels close to baseline when done) Balance/Special Test Scores Oswestry Low Back Score: 21 Goals Goal 1:: I HEP Goal Time Frame: 6-8 Weeks Goal 2:: Abolish R leg pain with sitting and ADL's Goal Time Frame: 6-8 Weeks Goal 3:: Be able to get through her day without having to take pain medication for her back and leg pain Goal Time Frame: 6-8 Weeks Goal 4:: Centralize LBP Goal Time Frame: 6-8 Weeks Rehabilitation Potential Rehabilitation Potential: Good Anticipated Interventions Patient/Client Instruction: Educate patient on: Condition and Plan of Care For the Purpose of:: To decrease pain, To increase ROM, To improve nutrient d elivery to tissue, To improve muscle performance and motor function, To improve ability to perform ADL's, To increase tolerance to activity/condition/position, To improve performance and independence with ADL's, To decrease level of supervision to perform tasks, To improve ability of physical actions for home/community/work/leisure, To improve health of tissue, To decrease soft tissue restriction and To increase flexibility/ROM Therapeutic Exercise to Include: Strength training, Endurance training, Body mechanics, Postural training, Flexibilty training, Active ROM, Dynamic Lumbar Stabilization, Michaela Exercises and Scapular Strength/Stabilization For the Purpose of:: To decrease pain, To increase ROM, To improve nutrient delivery to tissue, To improve muscle performance and motor function, To improve ability to perform ADL's, To increase tolerance to activity/condition/position, To improve performance and independence with ADL's, To decrease level of supervision to perform tasks, To improve ability of physical actions for home/community/work/leisure, To improve gait and locomotor functions, To improve health of tissue, To decrease soft tissue restriction and To increase flexibility/ROM Manual Therapy Techniques to Include: Mobilization and Soft tissue mobilization For the Purpose of:: To decrease pain, To increase ROM, To improve nutrient delivery to tissue and To improve muscle performance and motor function TENS: Yes Cryotherapy (ice pack, ice massage): Yes Thermo therapy (hot pack): Yes For the Purpose of:: To decrease pain, To decrease swelling/inflammation, To increase ROM, To improve nutrient delivery to tissue, To improve muscle performance and motor function and To improve ability to perform ADL's Text: Thank you for the opportunity to evaluate your patient. For Medicare and Medicare HMO plans, please review the plan of care and approve it. It will need to be FAXED BACK to us at [phone] for Medicare purposes. For Medicare only, by signing this I certify the plan of care. Please let me know if there are questions or concerns regarding this plan of care. Physician Signature: Date:
--- NOTE | 2024-11-05 10:12 | HP.PTREVAL ---
Re-Evaluation Intro: Dr. Enrrique Dewitt MD, It has been my pleasure to treat MISHA DIOR over the last 9 visits for Strain of muscle fascia and tendon, spondylosis/dorsalgia. Please see the progress note below for an update on the physical therapy plan of care! Subjective Subjective: Pt. reports having a bad past few days. Pt. reports she does have symptoms down both legs at times currently down her RLE to her calf. Pt. reports bulk of her pain is in her back, but does have N/T in her legs. Pt. reports pain at 6/10 today. Objective Objective/Function: ROM: LUMBAR SPINE: flexion mn/mod loss increase NW, ext mod loss increase NW, SB min loss bilat NE, rotation min loss bilat NE. Pt. has normal hip ROM bilaterally without increase in symptoms. Pt. did have a + response with prone lying, but did become stiff with prolonged lying. Pt. reported centralization of LE symptoms to buttocks on R side. Pt. did much better with prone lying compared to SHWETA. I want to continue with working progressive extension program. Light core stability, multifidus strengthening and neutral spine core strengthening. Plan Plan Plan: I want to continue with working progressive extension program. Light core stability, multifidus strengthening and neutral spine core strengthening. May use IFC as needed for pain. Balance/Gait/Functional tests Balance/Special Test Scores Oswestry Low Back Score: 18 Goals Goals Goal 1:: I HEP Goal Time Frame: 6-8 Weeks Goal 2:: Abolish R leg pain with sitting and ADL's Goal Time Frame: 6-8 Weeks Goal Progress: Progressing Goal 3:: Be able to get through her day without having to take pain medication for her back and leg pain Goal Time Frame: 6-8 Weeks Goal Progress: Progressing Goal 4:: Centralize LBP Goal Time Frame: 6-8 Weeks Goal Progress: Progressing Goal 5:: LTG: Pt. to have increased lumbar ROM to full without increase in symptoms. Goal Time Frame: 4-6 Weeks Goal Progress: Progressing Anticipated Interventions Anticipated Interventions Patient/Client Instruction: Educate patient on: Condition and Plan of Care For the Purpose of:: To decrease pain, To increase ROM, To improve nutrient delivery to tissue, To improve muscle performance and motor function, To improve ability to perform ADL's, To increase tolerance to activity/condition/position, To improve performance and independence with ADL's, To decrease level of supervision to perform tasks, To improve ability of physical actions for home/community/work/leisure, To improve health of tissue, To decrease soft tissue restriction and To increase flexibility/ROM Therapeutic Exercise to Include: Strength training, Endurance training, Body mechanics, Postural training, Flexibilty training, Active ROM, Dynamic Lumbar Stabilization, Michaela Exercises and Scapular Strength/Stabilization For the Purpose of:: To decrease pain, To increase ROM, To improve nutrient delivery to tissue, To improve muscle performance and motor function, To improve ability to perform ADL's, To increase tolerance to activity/condition/position, To improve performance and independence with ADL's, To decrease level of supervision to perform tasks, To improve ability of physical actions for home/community/work/leisure, To improve gait and locomotor functions, To improve health of tissue, To decrease soft tissue restriction and To increase flexibility/ROM Manual Therapy Techniques to Include: Mobilization and Soft tissue mobilization For the Purpose of:: To decrease pain, To increase ROM, To improve nutrient delivery to tissue and To improve muscle performance and motor function TENS: Yes Cryotherapy (ice pack, ice massage): Yes Thermo therapy (hot pack): Yes For the Purpose of:: To decrease pain, To decrease swelling/inflammation, To increase ROM, To improve nutrient delivery to tissue, To improve muscle performance and motor function and To improve ability to perform ADL's Re-Evaluation Ending Re-evaluation ending: Please do not hesitate to contact me at [phone] by phone or if you have questions or concerns regarding this new plan of care! Sincerely, HARVINDER FultonT
--- NOTE | 2024-12-26 17:46 | HP.PTDCSUM ---
Discharge Summary D/C summary: It has been my pleasure to treat MISHA DIOR referred by Dr. Enrrique Dewitt MD, with the diagnosis of Strain of muscle fascia and tendon, spondylosis/dorsalgia for a total of 20 visit(s). Discharge Date: 12/26/24 Please see the following information for a summary of their discharge status. Subjective Subjective: Pt. reports being 75% better overall. Pt. reports having some good and bad days, but the good days are more often. Pt. does not have as much in her legs, when she does get it, it is in her back. Pain back pain: Pain Intensity (Out of 10): 1 R leg pain\: Pain Intensity (Out of 10): 0 Overall Improvement % Improvement: 75 Objective Objective/Function: Lumbar ROM: flexion full no issues, ext min loss NE, SB full motion NE bilat, rotation full motion NE. Pt. has good HS length. MMT: full strength throughout BLEs. Pt. has fair- core strength. No distal symptoms. Pt. is independent with her current HEP. Pt. is to continue with her HEP on her own at this point in time. Goals Goal 1:: I HEP Goal 2:: Abolish R leg pain with sitting and ADL's Goal Progress: Goal Met Goal 3:: Be able to get through her day without having to take pain medication for her back and leg pain Goal Progress: Goal Met Goal 4:: Centralize LBP Goal Progress: Goal Met Goal 5:: LTG: Pt. to have increased lumbar ROM to full without increase in symptoms. Goal Progress: Goal Met Plan Plan: Pt. to be DC to HEP at this point in time. D/C Information d/c sentence: If there are questions or concerns regarding this patient's physical therapy, please feel free to call me at [phone]. Thank you for the referral of this patient. Sincerely, Arnol Lyons Sipos, DPT Balance/Gait/Functional tests Balance/Special Test Scores Oswestry Low Back Score: 7 Improvement % Improvement: 75
== END 2024-12-26 19:00 | disposition home or self-care (01) ==
LOC: PT 15:30
PROVIDERS: PCP Internal Medicine; Referring Provider Orthopaedic Surgery Orthopaedic Surgery of the Spine; Visit Provider Orthopaedic Surgery Orthopaedic Surgery of the Spine
DX: S39.012D Strain of muscle, fascia and tendon of lower back, subsequent encounter (principal); M47.816 Spondylosis without myelopathy or radiculopathy, lumbar region; M54.9 Dorsalgia, unspecified
CPT/HCPCS: 97014; 97110; 97162; 97530; G0283

== ENCOUNTER → 2025-03-21 | Outpatient (CLI) | payer BC, SELFPAY ==
[2025-03-21 16:43] LABS: Hematocrit 42.4 % (37-47); Hemoglobin 14.4 g/dL (12.0-15.0); Immature Granulocytes Count 0.020 X10^3/uL (0.0-0.0); Mean Corp Hgb Conc 34.0 g/dL (32-36); Mean Corpuscular Volume 88.5 fL (81-99); Mean Platelet Vol. 11.3 fl (6.2-12.0); NRBC Flagged by Analyzer 0 % (0-5); Platelet Count 289 K/mm3 (150-450); RBC Distribution Width CV 12.1 % (11.6-14.6); RBC Distribution Width SD 39.1 fl (35.1-43.9); Red Blood Count 4.79 M/mm3 (4.2-5.4); White Blood Count 7.3 K/mm3 (4.4-11.0)
[2025-03-21 19:36] LABS: AST(SGOT) 17 U/L (<=31); Alanine Aminotransfer ALT/SGPT 19 U/L (<=34); Albumin, Serum 4.4 g/dL (3.5-5.0); Alkaline Phosphatase 69 U/L (35-104); Anion Gap 15 (5-15); BUN 9 mg/dL (4-19); BUN/Creat Ratio 13.0 RATIO (10-20); Calcium,Total 9.7 mg/dL (7.6-11.0); Carbon Dioxide 20.3 mmol/L (21.0-32.0); Chloride 103 mmol/L (98-108); Globulin 3.3 g/dL (2.2-4.2); Glucose 100 mg/dL (70-99); Potassium 4.2 mmol/L (3.3-5.1)
[2025-03-21 19:37] LABS: Vitamin B12 1313 pg/mL (180-914); Vitamin D,25 Hydroxy 36.4 ng/mL (30-100)
== END | disposition home or self-care (01) ==
LOC: BIMLAB 16:06
PROVIDERS: PCP Internal Medicine; Visit Provider Internal Medicine
DX: F41.8 Other specified anxiety disorders (principal); F41.0 Panic disorder [episodic paroxysmal anxiety]
CPT/HCPCS: 36415; 80053; 82306; 82607; 84439; 84443; 85025

== ENCOUNTER → 2025-06-29 | Outpatient (CLI) | payer BC, SELFPAY ==
--- OUTSIDE RECORDS SUMMARY | 2025-06-29 08:09 | XMS RPT_ITS | CCD ---
Author Organization [facility] Care Team Providers Care House Piping Inspector Name Role Phone Dr. Spenser Brown Primary Care Provider [phone] Dr. Spenser Brown Attending Provider [phone] Dr. Spenser Brown Referring Provider [phone] Dr. Abby Denson Attending Provider [phone] Yee Bustamante Primary Care Provider Dr. Spenser Brown Primary Care Provider [phone] Dr. Spenser Brown Attending Provider [phone] Dr. Spenser Brown Referring Provider [phone] VALERIO Jacobo Attending Provider YEE BUSTAMANTE Primary Care Unavailable YEE BUSTAMANTE Primary Care Unavailable Dr. Spenser Brown Primary Care Provider [phone] Dr. Spenser Brown Referring Provider [phone] Dr. Abby Denson Attending Provider [phone] Dr. Spenser Brown Primary Care Provider [phone] Dr. Spenser Brown Attending Provider [phone] Dr. Spenser Brown Referring Provider [phone] Dr. Abby Denson Attending Provider [phone] Dr. Nahid Amado Attending Provider Dr. Lemuel Beauchamp Attending Provider Dr. Declan Rowland Attending Provider Dr. Nahid Amado Referring Provider [phone] Dr. Spenser Brown Primary Care Provider [phone] Dr. Spenser Brown Attending Provider [phone] Dr. Spenser Brwon Referring Provider [phone] Dr. Lemuel Beauchamp Attending Provider [phone] Dr. Declan Rowland Attending Provider [phone] Nahid Amado Attending Provider [phone] Dr. Nahid Amado Referring Provider [phone] Dr. Abby Denson Attending Provider [phone] ANGE Rolon Attending Provider [phone] Dr. Spenser Brown Primary Care Provider [phone] Kevin, Dr. Dueñas Referring Provider [phone] Dr. Nahid Amado Attending Provider [phone] Dr. Spenser Brown Attending Provider [phone] ADRIENNE Burch Attending Provider [phone] Dr. Spenser Brown Primary Care Provider [phone] Dr. Spenser Brown Attending Provider [phone] Dr. Spenser Brown Referring Provider [phone] ADRIENNE Burch Attending Provider [phone] Dr. Spenser Brown Primary Care Provider [phone] Dr. Spenser Brown Referring Provider [phone] Dr. Nahid Amado Attending Provider [phone] Dr. Spenser Brown MD Primary Care Provider Oleghe MD, Dr. Efewongbe Referring Provider Shadi Tomlin Attending Provider [phone] Kevin HSU, Dr. Dueñas Attending Provider Renate HSU, Dr. Enrrique Leone Attending Provider Renate HSU, Dr. Enrrique Leone Referring Provider Kevin HSU, Dr. Dueñas Primary Care Provider Kevin HSU, Dr. Dueñas Attending Provider [phone] Kevin HSU, Dr. Dueñas Referring Provider [phone] Kevin HSU, Dr. Dueñas Primary Care Provider Abby Denson Referring Unavailable Abby Denson Attending Unavailable Oleghe, Efewongbe Primary Care Unavailable Shadi Tomlin Attending Unavailable Oleghe, Efewongbe Referring Unavailable Oleghe, Efewongbe Primary Care Unavailable Oleghe, Efewongbe Attending Unavailable Oleghe, Efewongbe Referring Unavailable Oleghe, Efewongbe Primary Care Unavailable Oleghe, Efewongbe Attending Unavailable Oleghe, Efewongbe Referring Unavailable Oleghe, Efewongbe Primary Care Unavailable Oleghe, Efewongbe Attending Unavailable Oleghe, Efewongbe Referring Unavailable Oleghe, Efewongbe Primary Care Unavailable Enrrique Dewitt Attending Unavailable Enrrique Dewitt Referring Unavailable Oleghe, Efewongbe Primary Care Unavailable Oleghe, Efewongbe Attending Unavailable Oleghe, Efewongbe Primary Care Unavailable Oleghe, Efewongbe Referring Unavailable Oleghe, Efewongbe Primary Care Unavailable Abby Denson Attending Unavailable Oleghe, Efewongbe Primary Care Unavailable Oleghe, Efewongbe Attending Unavailable Oleghe, Efewongbe Referring Unavailable Oleghe, Efewongbe Primary Care Unavailable Abby Denson Attending Unavailable Oleghe, Efewongbe Referring Unavailable Abby Denson Referring Unavailable Oleghe, Efewongbe Primary Care Unavailable Abby Denson Attending Unavailable Oleghe, Efewongbe Primary Care Unavailable Oleghe, Efewongbe Attending Unavailable Spenser Brown Referring Unavailable Kevin HSU, Dr. Dueñas Primary Care Physician Kevin HSU, Dr. Dueñas Attending Physician [phone] Janiya HSU, Dr. Mora Attending Physician Allergies Allergy Classification Reported Allergen(s) Allergy Type Date of Onset Reaction(s) Facility (16 sources) Amoxicillin; Translations: [AMOXICILLIN] Drug Allergy 07-14-2015 Anaphylaxis [facility] (16 sources) Codeine; Translations: [CODEINE] Drug Allergy 07-14-2015 Anaphylaxis [facility] (1 source) Amoxicillin Drug Allergy 06-10-2025 [facility] (1 source) Codeine Drug Allergy 06-10-2025 [facility] Rep[facility] Medications Current Medications Medication Drug Class(es) Dates Sig (Normalized) Sig (Original) busPIRone hydrochloride 10 mg oral tablet (20 sources) Start: 11-01-2019 End: 06-04-2025 take 1 tablet by mouth twice daily Buspirone 10 mg tablet Active 10 mg PO TWICE A DAY 180 June 04, 2025 4:16pm anxiety Complies with drug therapy Start: 12-28-2018 End: 11-01-2019 take 1 tablet by mouth twice daily Buspirone 5 mg tablet Discontinued 5 mg PO TWICE A DAY 180 February 06, 2019 3:59pm November 01, 2019 4:55pm take 1 tablet by eliseo three times daily busPIRone (BUSPAR) 10 mg tablet Take 10 mg by mouth three times daily. 0 Active Comment on above: Take 10 mg by mouth three times daily. cariprazine 1.5 mg oral capsule (4 sources) Atypical Antipsychotic Start: 03-21-20 take 1 capsule by mouth once daily Cariprazine (Vraylar) 1.5 mg capsule Active 1.5 mg PO daily 30 March 21, 2025 12:00am Complies with drug therapy cetirizine hydrochloride 10 mg oral capsule (14 sources) Histamine-1 Receptor Antagonist Start: 07-07-20 take 1 capsule by mouth once daily Cetirizine (Zyrtec) 10 mg capsule Active 10 mg PO DAILY July 07, 2020 12:00am Complies with drug therapy doxycycline hyclate 100 mg oral capsule (1 source) Tetracycline-class Drug Start: 06-29-20 End: 06-30-20 take 2 capsules by mouth once daily doxycycline hyclate (VIBRAMYCIN) 100 mg capsule Indications: Tick bite of left thigh, initial encounter Take 2 capsules by mouth once daily for 1 day. 2 capsule 0 06/29/2022 06/30/2022 Active Comment on above: Take 2 capsules by m outh once daily for 1 day. Drospirenone-Ethinyl Estradiol (20 sources) Progestin, Estrogen Start: 08-24-20 take 3 tablets by mouth once daily Drospirenone-Ethiny l Estradiol (Chin (28)) 3-0.02 mg tablet Active 1 {tbl} PO daily 84 August 24, 2024 5:28pm Complies with drug therapy Start: 08-24-2024 take 3 tablets by mo uth once daily Drospirenone-Ethinyl Estradiol (Chin (28)) 3-0.02 mg tablet Active 1 {tbl} PO daily 84 August 24, 2024 5:28pm Start: 08-24-2024 take 3 tablets by mo uth once daily Drospirenone-Ethinyl Estradiol (Chin (28)) 3-0.02 mg tablet Active 1 {tbl} PO daily August 24, 2024 5:28pm Start: 05-29-2024 End: 08-24-2024 take 3 tablets by mouth once daily Drospirenone-Ethinyl Estradiol (Chin (28)) 3-0.02 mg tablet Discontinued 1 {tbl} PO daily 84 May 29, 2024 12:00am August 24, 2024 5:32pm Start: 05-29-2024 End: 08-24-2024 take 3 tablets by mouth once daily Drospirenone-Ethinyl Estradiol (Chin (28)) 3-0.02 mg tablet Discontinued 1 {tbl} PO daily May 29, 2024 12:00am August 24, 2024 5:32pm Start: 05-17-2024 End: 05-29-2024 take 3 tablets by mouth once daily Drospirenone-Ethinyl Estradiol (Chin (28)) 3-0.02 mg tablet Discontinued 1 {tbl} PO daily 84 May 17, 2024 9:17am May 29, 2024 2:00pm Start: 05-17-2024 End: 05-29-2024 take 3 tablets by mouth once daily Drospirenone-Ethinyl Estradiol (Chin (28)) 3-0.02 mg tablet Discontinued 1 {tbl} PO daily 84 May 17, 2024 9:17am May 29, 2024 2:00pm Start: 05-15-2024 End: 05-17-2024 take 3 tablets by mouth once daily Drospirenone-Ethinyl Estradiol (Chin (28)) 3-0.02 mg tablet Discontinued 1 {tbl} PO daily 84 May 15, 2024 9:54am May 17, 2024 9:18am Start: 05-15-2024 End: 05-17-2024 take 3 tablets by mouth once daily Drospirenone-Ethinyl Estradiol (Chin (28)) 3-0.02 mg tablet Discontinued 1 {tbl} PO daily May 15, 2024 9:54am May 17, 2024 9:18am Start: 07-15-2023 End: 05-15-2024 take 3 tablets by mouth once daily Drospirenone-Ethinyl Estradiol (Chin (28)) 3-0.02 mg tablet Discontinued 1 {tbl} PO daily 84 July 15, 2023 4:34pm May 15, 2024 9:54am Start: 07-15-2023 End: 05-15-2024 take 3 tablets by mouth once daily Drospirenone-Ethinyl Estradiol (Chin (28)) 3-0.02 mg tablet Discontinued 1 {tbl} PO daily July 15, 2023 4:34pm May 15, 2024 9:54am Start: 07-15-2023 Drospirenone-E thinyl Estradiol (Chin (28)) 3-0.02 mg tablet Active 1 TABLET PO daily July 15, 2023 4:34pm Start: 07-15-2023 Drospirenone-E thinyl Estradiol (Chin (28)) 3-0.02 mg tablet Active 1 TABLET PO daily July 15, 2023 3:34pm Start: 04-14-2023 End: 07-15-2023 take 3 tablets by mouth once daily Drospirenone-Ethinyl Estradiol (Chin (28)) 3-0.02 mg tablet Discontinued 1 {tbl} PO daily April 14, 2023 12:00am July 15, 2023 4:35pm Start: 04-14-2023 End: 07-15-2023 take 3 tablets by mouth once daily Drospirenone-Ethinyl Estradiol (Chin (28)) 3-0.02 mg tablet Discontinued 1 {tbl} PO daily April 14, 2023 12:00am July 15, 2023 4:35pm Start: 04-14-2023 End: 07-15-2023 Drospirenone-Ethinyl Estradi ol (Chin (28)) 3-0.02 mg tablet Discontinued 1 TABLET PO daily April 14, 2023 12:00am July 15, 2023 4:35pm Start: 04-14-2023 End: 07-15-2023 Drospirenone-Ethinyl Estradi ol (Chin (28)) 3-0.02 mg tablet Discontinued 1 TABLET PO daily April 13, 2023 11:00pm July 15, 2023 3:35pm Start: 04-14-2023 Drospirenone-E thinyl Estradiol (Chin (28)) 3-0.02 mg tablet Active 1 TABLET PO daily April 14, 2023 12:00am Lactobacillus Combination No.4 (Probiotic) 3 billion cell capsule (10 sources) Start: 04-14-2023 take 3 capsules by mouth once daily Lactobacillus Combination No.4 (Probiotic) 3 billion cell capsule Active 3000 NMA PO DAILY April 14, 2023 12:00am administer with a meal Complies with drug therapy Start: 04-14-2023 take 3 capsules by m outh once daily Lactobacillus Combination No.4 (Probiotic) 3 billion cell capsule Active 3000 NMA PO DAILY April 14, 2023 12:00am administer with a meal Start: 04-14-2023 take 3 capsules by m outh once daily Lactobacillus Combination No.4 (Probiotic) 3 billion cell capsule Active 3000 MMU CELLS PO DAILY April 13, 2023 11:00pm administer with a meal Start: 04-14-2023 take 3 capsules by m outh once daily Lactobacillus Combination No.4 (Probiotic) 3 billion cell capsule Active 3000 MMU CELLS PO DAILY April 14, 2023 12:00am administer with a meal mecobalamin 1 mg chewable tablet (5 sources) Start: 08-15-2024 take 1 tablet by mouth once daily Mecobalamin (Vitamin B12) 1,000 mcg tablet,chewable Active 1000 ug PO daily August 15, 2024 1:00am Complies with drug therapy nystatin 100 unt/mg topical ointment (17 sources) Polyene Antifungal Start: 08-22-2023 End: 09-21-2023 Nystatin 100,000 unit/gram ointment Active 1 NMA TOPICAL TWICE A DAY as needed September 21, 2023 2:35pm Complies with drug therapy Start: 08-22-2023 End: 09-21-2023 Nystatin Active 1 APPLIC TOP ICAL TWICE A DAY September 21, 2023 2:35pm Completed/Discontinued Medications Medication Drug Class(es) Dates Sig (Normalized) Sig (Original) acetaminophen 325 mg / HYDROcodone bitartrate 5 mg oral tablet (20 sources) Opioid Agonist Start: 09-03-2019 End: 11-01-2019 Hydrocodone-Acetami nophen 1 EACH tablet Discontinued 1 NMA PO EVERY 4 HOURS NEEDED as needed for Pain Or Fever September 03, 2019 1:00am November 01, 2019 4:40pm Start: 09-03-2019 End: 11-01-2019 Hydrocodone-Acetaminophen Di scontinued 1 EACH PO EVERY 4 HOURS NEEDED September 03, 2019 1:00am November 01, 2019 4:40pm Start: 07-27-2019 End: 07-29-2019 Hydrocodone-Acetaminophen 1 TABLET tablet Discontinued 1 {tbl} PO EVERY 4 HOURS NEEDED as needed for Pain 10 2 0 July 27, 2019 July 28, 2019 1:00am July 29, 2019 1:08am Acute low back pain with left-sided sciatica Lumbago with sciatica, left side Start: 07-27-2019 End: 07-29-2019 take 1 tablet by mouth every four hours as needed Hydrocodone-Acetaminophen Discontinued 1 TABLET PO EVERY 4 HOURS NEEDED 10 2 July 27, 2019 July 29, 2019 1:08am ascorbic acid 500 mg oral capsule (14 sources) Vitamin C Start: 09-28-2018 End: 11-20-2018 Ascorbic Acid (Vitamin C) 50 0 mg capsule Discontinued mg PO 0 September 28, 2018 1:00am November 20, 2018 3:26pm Start: 09-28-2018 End: 11-20-2018 Ascorbic Acid (Vitamin C) Di scontinued MG PO September 28, 2018 1:00am November 20, 2018 3:26pm 24 hr buPROPion hydrochloride 150 mg extended release oral tablet (20 sources) Aminoketone Start: 03-09-2022 buPROPion XL ( WELLBUTRIN XL) 150 mg 24 hr tablet Start: 02-02-2021 End: 04-01-2025 take 1 tablet by mouth once daily in the morning Bupropion Hcl (Wellbutrin Xl) 150 mg tablet extended release 24 hr Discontinued 150 mg PO EVERY MORNING 90 October 22, 2024 6:01pm April 01, 2025 7:45am cyclobenzaprine hydrochloride 10 mg oral tablet (20 sources) Muscle Relaxant Start: 05-28-2021 End: 07-31-2024 take 1 tablet by mouth three times daily as needed for muscle spasms Cyclobenzaprine 10 mg tablet Discontinued 10 mg PO THREE TIMES A DAY as needed for muscle spasm 90 June 16, 2022 11:35am July 31, 2024 2:29pm Start: 08-01-2019 End: 11-01-2019 take 1 tablet by mouth three times daily as needed for muscle spasms Cyclobenzaprine 10 mg tablet Discontinued 10 mg PO 3 TIMES DAILY NEEDED as needed for Spasms 90 2 August 13, 2019 5:49pm November 01, 2019 4:40pm take 1 tablet by [facility] every twelve hours as needed cyclobenzaprine (FLEXERIL) 10 mg tablet Take 10 mg by mouth twice daily as needed. 0 Active Comment on above: Take 10 mg by mouth twice daily as needed. escitalopram 5 mg oral tablet (20 sources) Serotonin Reuptake Inhibitor Start: 3 End: take 1 tablet by mouth once daily Escitalopram Oxalate 5 mg tablet Discontinued 5 mg PO DAILY 30 June 17, 2023 4:02pm September 21, 2023 2:34pm Start: 03-16-2023 End: 06-17-2023 take 1 tablet by mouth once daily Escitalopram Oxalate 10 mg tablet Discontinued 10 mg PO DAILY 90 March 16, 2023 11:15am June 17, 2023 4:02pm Start: 10-03-2019 End: 03-16-2023 take 1 tablet by mouth once daily Escitalopram Oxalate 20 mg tablet Discontinued 20 mg PO DAILY 20 0 October 12, 2022 10:34am March 16, 2023 11:17am Start: 08-22-2019 End: 10-03-2019 take 1 tablet by mouth once daily Escitalopram Oxalate 10 mg tablet Discontinued 10 mg PO DAILY 60 2 August 22, 2019 5:41pm October 03, 2019 7:34pm Start: 12-28-2018 End: 08-22-2019 take 1 tablet by mouth once daily Escitalopram Oxalate 20 mg tablet Discontinued 20 mg PO DAILY 60 2 June 20, 2019 8:42am August 22, 2019 5:42pm Start: 11-20-2018 End: 12-28-2018 Escitalopram Oxalate 10 mg t ablet Discontinued 15 mg PO DAILY 45 12 November 20, 2018 4:03pm December 28, 2018 4:04pm Start: 11-20-2018 End: 12-28-2018 take 15 mg by mouth once daily Escitalopram Oxalate Di scontinued 15 MG PO DAILY 45 November 20, 2018 4:03pm December 28, 2018 4:04pm Start: 10-25-2018 End: 11-20-2018 take 1 tablet by mouth once daily Escitalopram Oxalate 10 mg tablet Discontinued 10 mg PO DAILY 30 3 October 25, 2018 4:46pm November 20, 2018 4:03pm Start: 09-28-2018 End: 10-25-2018 take 1 tablet by mouth once daily Escitalopram Oxalate 5 mg tablet Discontinued 5 mg PO DAILY 60 1 September 28, 2018 1:00am October 25, 2018 4:46pm Comment on above: Take 10 mg by mouth once daily. fluconazole 150 mg oral tablet (9 sources) Azole Antifungal Start: 3 End: 4 Fluconazole 150 mg tablet Discontinued 150 mg PO Every 3 Days 2 0 August 22, 2023 1:00am September 21, 2023 2:35pm fluticasone propionate 0.05 mg/actuat metered dose nasal spray (14 sources) Corticosteroid Start: 1 End: 3 take 50 ug nasal route once daily Fluticasone Propionate (Flonase Allergy Relief) 50 mcg/actuation spray,suspension Discontinued 1 NMA INTRANASAL DAILY March 12, 2021 12:00am March 16, 2023 11:02am administer into each nostril Start: 03-12-2021 End: 03-16-2023 take 1 spray(s) nasal route once daily Fluticasone Propionate (Flonase Allergy Relief) 50 mcg/actuation spray,suspension Discontinued 1 SPRAY INTRANASAL DAILY March 12, 2021 12:00am March 16, 2023 11:02am administer into each nostril gabapentin 300 mg oral capsule (20 sources) Anti-epileptic Agent Start: 06-16-2022 End: 02-11-2025 take 1 capsule by mouth three times daily as needed Gabapentin 300 mg capsule Discontinued 300 mg PO THREE TIMES A DAY as needed for Radiculopathy 90 2 May 06, 2023 5:39pm March 19, 2024 3:10pm Start: 09-23-2020 End: 01-16-2021 take 1 capsule by mouth at bedtime Gabapentin 300 mg capsule Discontinued 300 mg PO AT BEDTIME September 23, 2020 1:00am January 16, 2021 1:34pm Start: 07-30-2019 End: 11-01-2019 take 1 capsule by mouth four times daily Gabapentin 300 mg capsule Discontinued 300 mg PO .QID 120 30 July 30, 2019 4:18pm November 01, 2019 4:40pm Start: 07-27-2019 End: 07-30-2019 take 2 capsules by mouth at bedtime Gabapentin 100 MG capsule Discontinued 200 mg PO AT BEDTIME July 27, 2019 7:22am July 30, 2019 4:19pm Start: 07-27-2019 End: 07-30-2019 take 200 mg by mouth at bedtime Gabapentin Discontinue d 200 MG PO AT BEDTIME July 27, 2019 7:22am July 30, 2019 4:19pm Start: 07-25-2019 End: 07-27-2019 take 1 capsule by mouth at bedtime Gabapentin 100 mg capsule Discontinued 100 mg PO AT BEDTIME 30 July 25, 2019 1:00am July 27, 2019 7:23am Comment on above: Take 300 mg by mouth four times daily. lactobacillus rhamnosus gg [id number] unt chewable tablet (14 sources) Start: 09-28-2018 End: 10-25-2018 Lactobacillus Rhamnosus Gg (Culturelle Kids Probiotics) 5 billion cell tablet,chewable Discontinued PO 0 September 28, 2018 1:00am October 25, 2018 4:17pm levonorgestrel 0.868643 mg/hr intrauterine system (20 sources) Progestin, Progestin-containing Intrauterine Device Start: 01-16-2021 End: 07-15-2023 Levonorgestrel (Vianey) 14 mcg/24 hrs (3 yrs) 13.5 mg intrauterine device Discontinued 1 NMA INTRA-UTER ONCE January 16, 2021 12:00am July 15, 2023 4:35pm as a single dose Start: 01-16-2021 End: 07-15-2023 Levonorgestrel (Vianey) 14 mc g/24 hrs (3 yrs) 13.5 mg intrauterine device Discontinued 1 DEVICE INTRA-UTER ONCE January 16, 2021 12:00am July 15, 2023 4:35pm as a single dose Start: 11-21-2017 End: 09-23-2020 Levonorgestrel 1 EACH intrau terine device Discontinued 1 NMA IY ONE TIME November 21, 2017 12:00am September 23, 2020 10:02am Start: 08-29-2015 levonorgestrel (MIRENA) 20 mcg/24 hr (5 years) IUD Inserted in office 1 Each 0 08/29/2015 Active levonorgestrel ( VIANEY INTRAUTERINE) by INTRAUTERINE route. 0 Active Comment on above: Inserted in office by INTRAUTERINE rout e. meloxicam 15 mg oral tablet (20 sources) Nonsteroidal Anti-inflammatory Drug Start: End: 5 take 1 tablet by mouth once daily as needed for pain Meloxicam 15 mg tablet Discontinued 15 mg PO DAILY as needed for pain 90 1 July 03, 2024 12:02pm October 22, 2024 6:02pm Start: 09-23-2020 End: 01-16-2021 take 1 tablet by mouth once daily Meloxicam 15 mg tablet Discontinued 15 mg PO DAILY September 23, 2020 1:00am January 16, 2021 1:34pm Start: 07-25-2019 End: 07-30-2019 take 1 tablet by mouth once daily Meloxicam 7.5 mg tablet Discontinued 7.5 mg PO DAILY 30 0 July 25, 2019 1:00am July 30, 2019 5:25pm methylPREDNISolone 4 mg oral tablet (19 sources) Corticosteroid Start: 08-15-2024 End: 08-24-2024 take 1 tablet by mouth once Methylprednisolone (Medrol (Petr)) 4 mg tablets,dose pack Discontinued 0 PO per package directions 21 0 August 15, 2024 1:00am August 24, 2024 4:58pm PO PER PKG DIR for 6 days Start: 07-10-2019 End: 07-25-2019 take 1 tablet by mouth once Methylprednisolone (Medrol (Petr)) 4 mg tablets,dose pack Discontinued 0 PO per package directions 21 July 10, 2019 12:00am July 25, 2019 2:41pm PO PER PKG DIR nitrofurantoin, macrocrystals 25 mg / nitrofurantoin, monohydrate 75 mg oral capsule (20 sources) Nitrofuran Antibacterial Start: 05-25-2021 End: 06-01-2021 take 1 capsule by mouth every twelve hours at mealtime Nitrofurantoin Monohyd/M-Cryst 100 mg capsule Discontinued 1 NMA PO Q12H 14 7 0 May 25, 2021 12:00am May 31, 2021 12:00am June 01, 2021 12:01am administer with a meal/food; swallow whole; do not open, crush, dissolve , or chew Start: 08-24-2018 End: 08-31-2018 take 1 capsule by mouth twice daily at mealtime Nitrofurantoin Monohyd/M-Cryst (Macrobid) 100 mg capsule Discontinued 100 mg PO TWICE A DAY 14 7 0 August 24, 2018 1:00am August 30, 2018 1:00am August 31, 2018 1:07am must administer with a meal/food sulfamethoxazole 800 mg / trimethoprim 160 mg oral tablet (14 sources) Dihydrofolate Reductase Inhibitor Antibacterial, Sulfonamide Antimicrobial Start: 05-26-2018 End: 06-02-2018 Sulfamethoxazole-Trimethopri m (Bactrim Ds) 800-160 mg tablet Discontinued 1 {tbl} PO Q12H 14 7 0 May 26, 2018 12:00am June 01, 2018 12:00am June 02, 2018 12:09am traMADol hydrochloride 50 mg oral tablet (14 sources) Opioid Agonist Start: 07-13-2019 End: 07-25-2019 take 1 tablet by mouth every twelve hours as needed for pain Tramadol 50 mg tablet Discontinued 50 mg PO Q12H as needed for pain 14 0 July 13, 2019 12:00am July 25, 2019 3:19pm Xlear nasal spray (10 sources) Start: 03-16-2023 End: 09-21-2023 Xlear nasal spray Discontinu ed INTRANASAL March 16, 2023 12:00am September 21, 2023 2:36pm Start: 03-16-2023 End: 09-21-2023 Xlear nasal spray Discontinu ed INTRANASAL March 15, 2023 11:00pm September 21, 2023 1:36pm Start: 03-16-2023 Xlear nasal sp ray Active INTRANASAL March 15, 2023 11:00pm Start: 03-16-2023 Xlear nasal sp ray Active INTRANASAL March 16, 2023 12:00am Problems Active Problems Problem Classification Problem Date Documented Da te Episodic/Chronic Abdominal pain (20 sources) Left flank pain; Translations: [Unspecified abdominal pain] Episodic Comment on above: iud check with pelvi c us recommend lesion rem oval Allergic reactions (1 source) Contact dermatitis; Translations: [Unspecified contact dermatitis, unspecified cause] 04-15-2023 Episodic Anxiety disorders (20 sources) Mixed anxiety and depressive disorder; Translations: [Other specified anxiety disorders] Onset: 03-21-2025 Chronic Cardiac dysrhythmias (9 sources) Palpitations; Translations: [Palpitations] 10-05-2023 Episodic Contraceptive and procreative management (20 sources) Patient encounter status; Translations: [Encounter for contraceptive management, unspecified] 01-07-2021 Episodic Comment on above: No PA needed for IUD insertion per pt Genitourinary symptoms and ill-defined conditions (14 sources) Dysuria; Translations: [Dysuria] 03-01-2022 Episodic Headache; including migraine (17 sources) Migraine with aura; Translations: [Migraine with aura, not intractable, without status migrainosus] 12-14-2021 Chronic Headache; including migraine (14 sources) Headache; Translations: [Severe headache] 11-20-2018 Episodic Immunizations and screening for infectious disease (20 sources) Contact with and (suspected) exposure to other viral communicable diseases; Translations: [Contact with or suspected exposure to other viral communicable disease] 06-16-2022 Episodic Inflammatory diseases of female pelvic organs (12 sources) Vaginitis; Translations: [Acute vaginitis] 08-22-2023 Episodic Comment on above: genital culture Malaise and fatigue (14 sources) Fatigue; Translations: [Other fatigue] 11-20-2018 Episodic Menopausal disorders (3 sources) Menopausal and female climacteric states; Translations: [Menopausal syndrome] Onset: 05-13-2025 06-10-2025 Chronic Comment on above: two weeks off ocp an d then check labs, if normal change to higher dose estrogen ocp. if POF refer to [facility] Menstrual disorders (3 sources) Oligomenorrhea, unspecified; Translations: [Oligomenorrhea] Onset: 06-10-2025 06-10-2025 Chronic Mycoses (12 sources) Candidal vulvovaginitis; Translations: [Candidal vulvovaginitis] 08-22-2023 Episodic Comment on above: diflucan, nystatin t o external area. Noninfectious gastroenteritis (14 sources) Chronic diarrhea; Translations: [Noninfective gastroenteritis and colitis, unspecified] 06-16-2022 Episodic Osteoarthritis (20 sources) Arthritis; Translations: [Unspecified osteoarthritis, unspecified site] Chronic Other and unspecified benign neoplasm (12 sources) Change in skin lesion; Translations: [Melanocytic nevi, unspecified] 04-15-2023 Episodic Other and unspecified benign neoplasm (2 sources) Melanocytic nevi, unspecified; Translations: [Benign neoplasm of skin, site unspecified] Onset: 05-03-2025 03-16-2023 Episodic Other endocrine disorders (11 sources) Polycystic ovary syndrome; Translations: [Polycystic ovarian syndrome] 03-03-2023 Chronic Comment on above: iud removed, chin Other endocrine disorders (6 sources) Polycystic ovarian syndrome; Translations: [Polycystic ovaries] 03-03-2023 Chronic Other gastrointestinal disorders (14 sources) Diarrhea; Translations: [Diarrhea, unspecified] 11-20-2018 Episodic Other gastrointestinal disorders (14 sources) Constipation; Translations: [Constipation, unspecified] 03-01-2022 Episodic Other lower respiratory disease (14 sources) Dyspnea; Translations: [Shortness of breath] 03-01-2022 Episodic Other nervous system disorders (8 sources) Neuropathy; Translations: [Polyneuropathy, unspecified] 09-21-2023 Chronic Other nervous system disorders (3 sources) Polyneuropathy, unspecified; Translations: [Mononeuritis of unspecified site] 09-21-2023 Chronic Other non-traumatic joint disorders (13 sources) Pain in right knee; Translations: [Right knee pain] 06-15-2023 Episodic Other nutritional; endocrine; and metabolic disorders (20 sources) Body mass index 30+ - obesity; Translations: [Obesity, unspecified] 06-18-2021 Chronic Other nutritional; endocrine; and metabolic disorders (2 sources) Obesity, unspecified; Translations: [Obesity, unspecified] Chronic Other nutritional; endocrine; and metabolic disorders (11 sources) Obesity; Translations: [Other obesity] 03-03-2023 Chronic Comment on above: discussed nutrition consult if desired, recommend noom or weight watchers. patient prefers portion control and EEP over daily calorie tracking to avoid obsessive food tracking habits.. Other nutritional; endocrine; and metabolic disorders (2 sources) Body mass index (BMI) 36.0-36.9, adult; Translations: [Body Mass Index 36.0-36.9, adult] 03-03-2023 Chronic Other nutritional; endocrine; and metabolic disorders (2 sources) Other obesity; Translations: [Obesity, unspecified] 03-03-2023 Chronic Other skin disorders (12 sources) Eruption; Translations: [Rash and other nonspecific skin eruption] 07-31-2022 Episodic Other skin disorders (1 source) Rash and other nonspecific skin eruption; Translations: [Rash and other nonspecific skin eruption] 07-31-2022 Episodic Other upper respiratory disease (20 sources) Seasonal allergy; Translations: [Other seasonal allergic rhinitis] 02-02-2021 Chronic Other upper respiratory disease (12 sources) Nasal congestion; Translations: [Nasal congestion] 06-16-2022 Episodic Other upper respiratory disease (2 sources) Nasal congestion; Translations: [Other disease of nasal cavity and sinuses] 06-16-2022 Episodic Residual codes; unclassified (12 sources) Hypersomnia; Translations: [Hypersomnia, unspecified] 06-16-2022 Chronic Residual codes; unclassified (1 source) Hypersomnia, unspecified; Translations: [Hypersomnia, unspecified] 06-16-2022 Chronic Spondylosis; intervertebral disc disorders; other back problems (1 source) Spondylosis without myelopathy or radiculopathy, lumbar region; Translations: [Spondylosis without myelopathy or radiculopathy, lumbar region] Onset: 12-27-2024 Chronic Superficial injury; contusion (1 source) Tick bite; Translations: [Insect bite (nonvenomous), left thigh, initial encounter] Episodic Syncope (6 sources) Near syncope; Translations: [Syncope and collapse] 09-19-2024 Episodic Thyroid disorders (20 sources) Goiter; 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 Office visit is proceeded by thyroid ultrasound that demonstrated an overall decrease in both the patient's thyroid nodule that has been under surveillance as well as the sizes of both thyroid lobes. Patient overall describes minimal compressive symptoms and is pleased to hear about her results of her thyroid ultrasound. It is noted that this nodule was previously biopsied and while the cytopathology showed some atypia Afirma testing was concluded as "benign". With this history and patient's present ultrasound results I am encouraged with her clinical trajectory. I shared with her that her TI-RADS rating of her nodule does not necessarily merit further surveillance based on ACR criteria, however, given that it was previously suspicious for a TI-RADS 3 nodule I recommended proceeding with this guidance which would have us repeat her thyroid ultrasound in 2 years (since she has had serial ultrasounds for the last 3 years). Patient and her are receptive of this recommendation. In the interim we will obtain updated thyroid function testing. Unclassified (1 source) Change in skin mole Unclassified (3 sources) D22.9 - Melanocytic nevi, unspecified Unclassified (1 source) Cough, unspecified; Translations: [Cough, unspecified] Onset: 09-11-2024 Past or Other Problems Problem Classification Problem Date Documented Da te Episodic/Chronic Nonmalignant breast conditions (1 source) Breast lump; Translations: [Unspecified lump in unspecified breast] Onset: 07-18-2015 07-18-2015 Episodic Other screening for suspected conditions (not mental disorders or infectious disease) (2 sources) Encounter for screening for malignant neoplasm of cervix; Translations: [Encounter for screening for other suspected endocrine disorder] Onset: 08-22-2024 Episodic Other upper respiratory infections (20 sources) Acute sinusitis; Translations: [Acute sinusitis, unspecified] Onset: 09-11-2024 05-19-2022 Episodic Spondylosis; intervertebral disc disorders; other back problems (20 sources) Low back pain; Translations: [Low back pain] Onset: 09-17-2024 06-16-2022 Episodic Sprains and strains (1 source) Strain of muscle, fascia and tendon of lower back, initial encounter; Translations: [Strain of muscle, fascia and tendon of lower back, initial encounter] Onset: 12-27-2024 Episodic Unclassified (12 sources) Contact dermatitis and other eczema, due to unspecified cause 07-31-2022 Results Test Name Value Interpretation Reference Range Facility Operational Trainer Office Visit Reporton 06-10-2025 Operational Trainer Office Visit Report [facility] [address], [address] [place] [address] OFFICE VISIT Date of Service: 06/10/25 MR#: [id number] Acct: [id number] Name: JEN DIOR Rep #: [id number] : 1995 Provider: Dr. Abby cochran MD Age/Sex: 30/F Location[place] [facility] [place]: Signed Intake Vital Signs 05/03/25 10:50 06/10/25 13:47 Height 5 ft 6 in 5 ft 6 in Weight: 227 lb 8 oz 228 lb 8 oz BMI 36.7 36.8 BP 112/68 137/81 H Blood Pressure Location Lt brachial Position Sitting Respiration 16 Pulse 105 H Pulse Source Monitor Temp 97.9 F Pulse Oximetry (%) 98 Oxygen Delivery Method room air Intake Visit Reasons: Hot flashes/hormone changes Composite Bond Worker Required: No Is patient in pain?: No Allergies amoxicillin Allergy (Verified 06/10/25 13:49) Anaphylaxis codeine Allergy (Verified 06/10/25 13:49) Anaphylaxis Medications ???Medication ???Instructions ???Recorded ???Confirmed ???Type cetirizine 10 mg capsule (Zyrtec) 10 mg PO DAILY 07/07/20 06/10/25 History lactobacillus combination no.4 3 3,000 mmu cells PO DAILY 04/14/23 06/10/25 History billion cell capsule (Probiotic) nystatin 100,000 unit/gram topical 1 applic topical BID PRN 4 06/10/25 History ointment cyclobenzaprine 10 mg tablet 10 mg PO TID PRN muscle spasm #90 07/31/24 06/10/25 Rx tabs mecobalamin (vitamin B12) 1,000 1,000 mcg PO QDAY 08/15/24 5 History mcg chewable tablet drospirenone 3 mg-ethinyl 1 tab PO QDAY #84 tabs 08/24/24 Rx estradiol 0.02 mg tablet (CHIN (28)) meloxicam 15 mg tablet 15 mg PO DAILY PRN pain #90 tabs 0 10/22/24 06/10/25 Rx gabapentin 300 mg capsule 300 mg PO TID PRN Radiculopathy 06/10/25 Rx #90 caps cariprazine 1.5 mg capsule 1.5 mg PO QDAY #30 caps 03/21/25 0 06/10/25 Rx (Vraylar) bupropion HCl 150 mg 24 hr tablet, 150 mg PO QAM #90 tabs 04/01/25 06/10/25 Rx extended release (Wellbutrin XL) buspirone 10 mg tablet 10 mg PO BID anxiety #180 tabs 06/10/25 Rx Is last menstrual period known: No Post menopausal: No Patient : No : No Control Method: ocp [facility] Medical History (Updated 06/10/25 @ 14:[address] Abby Denson MD) Change in skin mole Pre-syncope Thyromegaly Neuropathy Right knee pain Flu vaccine need Hypersomnolence Lumbar radiculopathy, chronic Chronic nasal congestion Chronic diarrhea Panic attacks Thyroid nodule Constipation Obesity (BMI 30-39.9) Seasonal allergies Migraine with aura and without status migrainosus Depression with anxiety Seasonal allergies Back pain Diarrhea Severe headache Fatigue Surgical History History of back surgery H/O breast biopsy Family History Grandmother Breast cancer Arthritis Diabetes High cholesterol Mother Asthma Seizures Father Migraines Hypertension Social History Smoking Status: Never smoker alcohol intake: current Alcohol type: wine details: social substance use type: does not use caffeine: Yes what type of physical activity do you participate in: walking seatbelt use: always do you feel safe at home: Yes additional social history: [employer] Patient works for [employer] HPI Hot flashes/hormone changes Details: The patient is a 30-year-old female presenting with concerns of hot flashes and excessive sweating. The patient reports experiencing hot flashes for several years, initially thought to be a side effect of escitalopram, which she has since discontinued. Despite stopping escitalopram and starting new medications, including Vraylar, the symptoms persist, occurring almost daily, with episodes lasting until she uses cooling interventions such as air conditioning or ice packs. The patient has been on a continuous oral contraceptive pill but reports having only one menstrual period during this time. She is concerned about the possibility of premature ovarian failure, as she is experiencing symptoms consistent with menopause, despite her young age. The patient has a history of depression and anxiety, which have been challenging to manage despite therapy and medication adjustments. She is currently on multiple medications, including Wellbutrin and Vraylar, and is considering consulting a psychiatrist for further evaluation. The patient also reports chronic diarrhea, which has increased in frequency over the past month, and occasional dizziness over the last few weeks. Attestation: Documentation on this patient encounter was supported using ambient scribe technology/ voice AI technology. The patient consented (more content not included)... Normal [facility] Internal Medicine Office Vis shankar 05-03-2025 Internal Medicine Office Visit [facility] [address] [place] [address] [place] [address] OFFICE VISIT Date of Service: 05/03/25 MR#: [id number] Acct: [id number] Name: JEN DIOR Rep #: [id number] : 1995 Provider: Dr. Spenser laboy MD Age/Sex: 30/F [place] [facility] [place] Status: Signed Intake Vital Signs 03/21/25 15:19 05/03/25 10:50 Height 5 ft 6 in 5 ft 6 in Weight: 223 lb 227 lb 8 oz BMI 35.9 36.7 BP 128/96 H 112/68 Blood Pressure Location Lt brachial Lt brachial Position Sitting Sitting Respiration 16 16 Pulse 101 H 105 H Pulse Source Monitor Monitor Temp 98.4 F 97.9 F Temp Source Temporal Temporal Pulse Oximetry (%) 97 98 Oxygen Delivery Method room air room air Intake Visit Reasons: 6 wk FU Chief Complaint: 6w fu Composite Bond Worker Required: No Accompanied by: Self Is patient in pain?: No Allergies amoxicillin Allergy (Verified 05/03/25 10:45) Anaphylaxis codeine Allergy (Verified 05/03/25 10:45) Anaphylaxis Medications ???Medication ???Instructions ???Recorded ???Confirmed ???Type cetirizine 10 mg capsule (Zyrtec) 10 mg PO DAILY 07/07/20 05/03/25 History lactobacillus combination no.4 3 3,000 mmu cells PO DAILY 04/14/23 05/03/25 History billion cell capsule (Probiotic) nystatin 100,000 unit/gram topical 1 applic topical BID PRN 4 05/03/25 History ointment cyclobenzaprine 10 mg tablet 10 mg PO TID PRN muscle spasm #90 07/31/24 05/03/25 Rx tabs mecobalamin (vitamin B12) 1,000 1,000 mcg PO QDAY 08/15/24 5 History mcg chewable tablet drospirenone 3 mg-ethinyl 1 tab PO QDAY #84 tabs 08/24/24 Rx estradiol 0.02 mg tablet (CHIN (28)) meloxicam 15 mg tablet 15 mg PO DAILY PRN pain #90 tabs 0 10/22/24 05/03/25 Rx gabapentin 300 mg capsule 300 mg PO TID PRN Radiculopathy 05/03/25 Rx #90 caps buspirone 10 mg tablet 10 mg PO BID anxiety #180 tabs 05/03/25 Rx cariprazine 1.5 mg capsule 1.5 mg PO QDAY #30 caps 03/21/25 0 05/03/25 Rx (Vraylar) bupropion HCl 150 mg 24 hr tablet, 150 mg PO QAM #90 tabs 04/01/25 05/03/25 Rx extended release (Wellbutrin XL) Nurse's Note: discuss vraylar, cost is high has been taking every other day also concerned with side effects of medication [facility] Medical History (Updated 05/03/25 @ 11:[address] Spenser Borwn MD) Change in skin mole Pre-syncope Thyromegaly Neuropathy Right knee pain Flu vaccine need Hypersomnolence Lumbar radiculopathy, chronic Chronic nasal congestion Chronic diarrhea Panic attacks Thyroid nodule Constipation Obesity (BMI 30-39.9) Seasonal allergies Migraine with aura and without status migrainosus Depression with anxiety Seasonal allergies Back pain Diarrhea Severe headache Fatigue Surgical History History of back surgery H/O breast biopsy Family History Grandmother Breast cancer Arthritis Diabetes High cholesterol Mother Asthma Seizures Father Migraines Hypertension Social History Smoking Status: Never smoker alcohol intake: current Alcohol type: wine details: social substance use type: does not use caffeine: Yes what type of physical activity do you participate in: walking seatbelt use: always do you feel safe at home: Yes additional social history: [employer] Patient works for [employer] HPI Chief Complaint: 6w fu Details: JEN DIOR, is a 30-year-old female presenting for close follow-up. She also has some concerns. At her last visit, she was started on Vraylar due to significant depression and anxiety causing loss of function. She reports initial hesitance regarding starting the medication due to a known history of Polycystic Ovary Syndrome (PCOS) and the associated increased risk of diabetes and weight gain. Since starting medication, she has increased physical activity to help mitigate weight gain. She describes an ongoing issue of increased hunger and occasional sensations of overheating or excessive sweating, which she compares to hot flashes. These symptoms were previously noted when on Escitalopram, a medication she has since discontinued. Despite these side effects, she has observed improvement in her mental health, with fewer bad days and better overall functionality since starting Vraylar. The patient also expressed worries about the affordability of her medication following a change in her insurance coverage, which no longer substantially covers the cost leading to a significant eha-am-bjlgyr expense. She began taking Vraylar every other day to manage the costs better. She would also like a referral to dermatology due to ch (more content not included)... Normal [facility] Absolute lymphocyte countOrd ered By: Spenser Brown on 03-21-2025 Lymphocytes Auto (Unsp spec) [#/Vol] 2.13 10*3/uL 0.83-4.51 [facility] Absolute neutrophil countOrd ered By: aud[place] rock[place]olga Brown on 03-21-2025 Neutrophils (Bld) [#/Vol] 4.4 10*3/uL 2.0-7.7 [facility] Anion gap in Serum or Plasma Ordered By: Spenser Brown on 03-21-2025 Anion gap [Moles/Vol] 15 mmol/L 5-15 [facility] Automated lymphocyte count a s percentage of total leukocytesOrdered By: Spenser Brown on 03-21-2025 Lymphocytes/100 WBC Auto (Unsp spec) 29.1 % - [facility] BUN/creatinine ratioOrdered By: [facility] Contrerasmihir on 03-21-2025 Urea nitrogen/Creatinine [Mass ratio] 13.0 mg/mg - [facility] Basophil percentageOrdered B y: Spenser Brown on 03-21-2025 Basophils/100 WBC (Bld) 0.7 % 0- [facility] Bilirubin, totalOrdered By: Spenser Brown on 03-21-2025 Bilirubin [Mass/Vol] 0.24 mg/dL 0.00-1.30 [facility] CBC W/Diff, Automatedon 03-12 Absolute Lymph 2.13 X10 3/uL Normal 0.83-4.51 [facility] Comment on above: Performed By: #### L 501.9520, L506.1001, L100.0100, L503.0106, L506.0400, L500.4050 #### [facility] [place] [address], [address] Absolute Neut 4.4 X10 3/uL Normal 2.0-7.7 [facility] Comment on above: Performed By: #### L 501.9520, L506.1001, L100.0100, L503.0106, L506.0400, L500.4050 #### [facility] [address] [place], [address] Basophils/100 WBC (Bld) 0.7 % Normal 0-1 [facility] Comment on above: Performed By: #### L 501.9520, L506.1001, L100.0100, L503.0106, L506.0400, L500.4050 #### [facility] [address] [place], [address] Eosinophils/100 WBC (Bld) 2.9 % Normal 0-5 [facility] Comment on above: Performed By: #### L 501.9520, L506.1001, L100.0100, L503.0106, L506.0400, L500.4050 #### [facility] [address] [place], [address] Erythrocyte distribution width (RBC) [Ratio] 12.1 % Normal 11.6-14.6 [facility] Comment on above: Performed By: #### L 501.9520, L506.1001, L100.0100, L503.0106, L506.0400, L500.4050 #### [facility] [address] [place], [address] Hematocrit (Bld) [Volume fraction] 42.4 % Normal 37-47 [facility] Comment on above: Performed By: #### L 501.9520, L506.1001, L100.0100, L503.0106, L506.0400, L500.4050 #### [facility] [address] [place], [address] Hemoglobin (Bld) [Mass/Vol] 14.4 g/dL Normal 12.0-15.0 [facility] Comment on above: Performed By: #### L 501.9520, L506.1001, L100.0100, L503.0106, L506.0400, L500.4050 #### [facility] [address] [place], [address] IG% 0.300 Normal 0.0-0.9 [facility] Comment on above: Result Comment: IG% - Immature Granulocytes (promyelocytes, myelocytes and metamyelocytes) > 1% indicates that a LEFT SHIFT is Present. Performed By: #### L 501.9520, L506.1001, L100.0100, L503.0106, L506.0400, L500.4050 #### [facility] [address] [place], [address] Lymphocytes/100 WBC (Bld) 29.1 % Normal 19-41 [facility] Comment on above: Performed By: #### L 501.9520, L506.1001, L100.0100, L503.0106, L506.0400, L500.4050 #### [facility] [address] [place], [address] MCH (RBC) [Entitic mass] 30.1 pg Normal 27.0-32.0 [facility] Comment on above: Performed By: #### L 501.9520, L506.1001, L100.0100, L503.0106, L506.0400, L500.4050 #### [facility] [address] [place], [address] MCHC (RBC) [Mass/Vol] 34.0 g/dL Normal 32-36 [facility] Comment on above: Performed By: #### L 501.9520, L506.1001, L100.0100, L503.0106, L506.0400, L500.4050 #### [facility] [address] [place], [address] MCV (RBC) [Entitic vol] 88.5 fL Normal 81-99 [facility] Comment on above: Performed By: #### L 501.9520, L506.1001, L100.0100, L503.0106, L506.0400, L500.4050 #### [facility] [address] [place], [address] Monocytes/100 WBC (Bld) 7.5 % Normal 0-10 [facility] Comment on above: Performed By: #### L 501.9520, L506.1001, L100.0100, L503.0106, L506.0400, L500.4050 #### [facility] [address] [place], [address] Neutrophils/100 WBC (Bld) 59.5 % Normal 47-70 [facility] Comment on above: Performed By: #### L 501.9520, L506.1001, L100.0100, L503.0106, L506.0400, L500.4050 #### [facility] [address] [place], [address] Nucleated RBC (Bld) [#/Vol] 0 10*3/uL Normal 0-5 [facility] Comment on above: Performed By: #### L 501.9520, L506.1001, L100.0100, L503.0106, L506.0400, L500.4050 #### [facility] [address] [place], [address] Platelet mean volume (Bld) [Entitic vol] 11.3 fL Normal 6.2-12.0 [facility] Comment on above: Performed By: #### L 501.9520, L506.1001, L100.0100, L503.0106, L506.0400, L500.4050 #### [facility] [address] [place], [address] Platelets (Bld) [#/Vol] 289 10*3/uL Normal 150-450 [facility] Comment on above: Performed By: #### L 501.9520, L506.1001, L100.0100, L503.0106, L506.0400, L500.4050 #### [facility] [address] [place], [address] RBC (Bld) [#/Vol] 4.79 10*6/uL Normal 4.2-5.4 [facility] Comment on above: Performed By: #### L 501.9520, L506.1001, L100.0100, L503.0106, L506.0400, L500.4050 #### [facility] [address] [place], [address] RDW SD 39.1 fl Normal 35.1-43.9 [facility] Comment on above: Performed By: #### L 501.9520, L506.1001, L100.0100, L503.0106, L506.0400, L500.4050 #### [facility] [address] [place], [address] WBC (Bld) [#/Vol] 7.3 10*3/uL Normal 4.4-11.0 [facility] Comment on above: Performed By: #### L 501.9520, L506.1001, L100.0100, L503.0106, L506.0400, L500.4050 #### [facility] [address] [place], [address] Carbon dioxide, total [Moles /volume] in Central venous bloodOrdered By: Spenser Brown on 03-21-2025 CO2 [Moles/Vol] 20.3 mmol/L Low 21.0-32.0 [facility] Chloride assayOrdered By: Lillie Brown on 03-21-2025 Chloride [Moles/Vol] 103 mmol/L 98-108 [facility] Comprehensive Metabolic Prof ilon 03-21-2025 Albumin [Mass/Vol] 4.4 g/dL Normal 3.5-5.0 [facility] Comment on above: Performed By: #### L 501.9520, L506.1001, L100.0100, L503.0106, L506.0400, L500.4050 #### [facility] [address] [place], [address] Albumin/Globulin [Mass ratio] 1.3 {ratio} Normal 0.9-2.4 [facility] Comment on above: Performed By: #### L 501.9520, L506.1001, L100.0100, L503.0106, L506.0400, L500.4050 #### [facility] [address] [place], [address] ALK PHOS 69 U/L Normal 35-104 [facility] Comment on above: Performed By: #### L 501.9520, L506.1001, L100.0100, L503.0106, L506.0400, L500.4050 #### [facility] [address] [place], [address] ALT [Catalytic activity/Vol] 19 U/L Normal <=34 [facility] Comment on above: Performed By: #### L 501.9520, L506.1001, L100.0100, L503.0106, L506.0400, L500.4050 #### [facility] [address] [place], [address] AST [Catalytic activity/Vol] 17 U/L Normal <=31 [facility] Comment on above: Performed By: #### L 501.9520, L506.1001, L100.0100, L503.0106, L506.0400, L500.4050 #### [facility] [address] [place], [address] Bilirubin [Mass/Vol] 0.24 mg/dL Normal 0.00-1.30 [facility] Comment on above: Performed By: #### L 501.9520, L506.1001, L100.0100, L503.0106, L506.0400, L500.4050 #### [facility] [address] [place], [address] BUN/CRE 13.0 RATIO Normal 10-20 [facility] Comment on above: Performed By: #### L 501.9520, L506.1001, L100.0100, L503.0106, L506.0400, L500.4050 #### [facility] [address] [place], [address] Calcium [Mass/Vol] 9.7 mg/dL Normal 7.6-11.0 [facility] Comment on above: Performed By: #### L 501.9520, L506.1001, L100.0100, L503.0106, L506.0400, L500.4050 #### [facility] [address] [place], [address] Chloride [Moles/Vol] 103 mmol/L Normal 98-108 [facility] Comment on above: Performed By: #### L 501.9520, L506.1001, L100.0100, L503.0106, L506.0400, L500.4050 #### [facility] [address] [place], [address] CO2 [Moles/Vol] 20.3 mmol/L Low 21.0-32.0 [facility] Comment on above: Performed By: #### L 501.9520, L506.1001, L100.0100, L503.0106, L506.0400, L500.4050 #### [facility] [address] [place], [address] Creatinine [Mass/Vol] 0.72 mg/dL Normal 0.70-1.20 [facility] Comment on above: Performed By: #### L 501.9520, L506.1001, L100.0100, L503.0106, L506.0400, L500.4050 #### [facility] [address] [place], [address] GAP 15 Normal 5-15 [facility] Comment on above: Performed By: #### L 501.9520, L506.1001, L100.0100, L503.0106, L506.0400, L500.4050 #### [facility] [address] [place], [address] GFR/1.73 sq M.predicted among non-blacks MDRD (S/P/Bld) [Vol rate/Area] 115 mL/min/{1.73_m2} Normal >60 [facility] Comment on above: Result Comment: mL/m in/1.73m2 CKD-EPI Creatinine Equation (2020) Performed By: #### L 501.9520, L506.1001, L100.0100, L503.0106, L506.0400, L500.4050 #### [facility] [address] [place], [address] Globulin (S) [Mass/Vol] 3.3 g/dL Normal 2.2-4.2 [facility] Comment on above: Performed By: #### L 501.9520, L506.1001, L100.0100, L503.0106, L506.0400, L500.4050 #### [facility] [address] [place], [address] Glucose [Mass/Vol] 100 mg/dL High 70-99 [facility] Comment on above: Performed By: #### L 501.9520, L506.1001, L100.0100, L503.0106, L506.0400, L500.4050 #### [facility] [address] [place], [address] Potassium [Moles/Vol] 4.2 mmol/L Normal 3.3-5.1 [facility] Comment on above: Performed By: #### L 501.9520, L506.1001, L100.0100, L503.0106, L506.0400, L500.4050 #### [facility] [address] [place], [address] Sodium [Moles/Vol] 138 mmol/L Normal 133-145 [facility] Comment on above: Performed By: #### L 501.9520, L506.1001, L100.0100, L503.0106, L506.0400, L500.4050 #### [facility] [address] [place], [address] T PROT 7.7 g/dL Normal 5.9-8.4 [facility] Comment on above: Performed By: #### L 501.9520, L506.1001, L100.0100, L503.0106, L506.0400, L500.4050 #### [facility] [address] [place], [address] Urea nitrogen [Mass/Vol] 9 mg/dL Normal 4-19 [facility] Comment on above: Performed By: #### L 501.9520, L506.1001, L100.0100, L503.0106, L506.0400, L500.4050 #### [facility] [address] [place], [address] Eosinophil percentageOrdered By: Spenser Brown on 03-21-2025 Eosinophils/100 WBC (Bld) 2.9 % 0-5 [facility] Erythrocyte distribution wid th ratioOrdered By: Spenser Brown on 03-21-2025 Erythrocyte distribution width (RBC) [Ratio] 12.1 % 11.6-14.6 [facility] Erythrocyte distribution wid th standard deviationOrdered By: Spenser Brown on 03-21-2025 Erythrocyte distribution width (RBC) [Ratio] 39.1 fl 35.1-43.9 [facility] Glomerular filtration rate ( GFR) estimation/1.73 sq m using serum, plasma, or whole bOrdered By: Spenser Brown on 03-21-2025 GFR/1.73 sq M.predicted among non-blacks MDRD (S/P/Bld) [Vol rate/Area] 115 mL/min/{1.73_m2} >60 [facility] Comment on above: mL/min/1.73m2 CKD-EP I Creatinine Equation (2020) Hematocrit Auto (Bld) [Volum e fraction]Ordered By: Spenser Brown on 03-21-2025 Hematocrit (Bld) [Volume fraction] 42.4 % 37-47 [facility] Hemoglobin measurementOrdere d By: Spenser Brown on 03-21-2025 Hemoglobin (Bld) [Mass/Vol] 14.4 g/dL 12.0-15.0 [facility] Immature granulocytes/100 WB C Auto (Bld)Ordered By: Spenser Brown on 03-21-2025 Immature granulocytes/100 WBC (Bld) 0.300 % 0.0-0.9 [facility] Comment on above: IG% - Immature Granu locytes (promyelocytes, myelocytes and metamyelocytes) > 1% indicates that a LEFT SHIFT is Present. Internal Medicine Office Vis itoog 03-21-2025 Internal Medicine Office Visit [facility] [address] [place] [address] [place] [address] OFFICE VISIT Date of Service: 03/21/25 MR#: [id number] Acct: [id number] Name: JEN DIOR Rep #: [id number] : 1995 Provider: Dr. Spenser laboy MD Age/Sex: 30/F Location[place] [facility] Status: Signed Intake Vital Signs 09/19/24 15:04 03/21/25 15:19 Height 5 ft 6 in 5 ft 6 in Weight: 223 lb BMI 35.9 BP 128/96 H Blood Pressure Location Lt brachial Position Sitting Respiration 16 Pulse 101 H Pulse Source Monitor Temp 98.4 F Temp Source Temporal Pulse Oximetry (%) 97 Oxygen Delivery Method room air Intake Visit Reasons: 6 M FU Chief Complaint: 6m fu Is patient in pain?: No Allergies amoxicillin Allergy (Verified 03/21/25 15:13) Anaphylaxis codeine Allergy (Verified 03/21/25 15:13) Anaphylaxis Medications ???Medication ???Instructions ???Recorded ???Confirmed ???Type cetirizine 10 mg capsule (Zyrtec) 10 mg PO DAILY 07/07/20 03/21/25 History lactobacillus combination no.4 3 3,000 mmu cells PO DAILY 04/14/23 03/21/25 History billion cell capsule (Probiotic) nystatin 100,000 unit/gram topical 1 applic topical BID PRN 4 03/21/25 History ointment cyclobenzaprine 10 mg tablet 10 mg PO TID PRN muscle spasm #90 07/31/24 03/21/25 Rx tabs mecobalamin (vitamin B12) 1,000 1,000 mcg PO QDAY 08/15/24 5 History mcg chewable tablet drospirenone 3 mg-ethinyl 1 tab PO QDAY #84 tabs 08/24/24 Rx estradiol 0.02 mg tablet (CHIN (28)) bupropion HCl 150 mg 24 hr tablet, 150 mg PO QAM #90 tabs 10/22/24 03/21/25 Rx extended release (Wellbutrin XL) meloxicam 15 mg tablet 15 mg PO DAILY PRN pain #90 tabs 0 10/22/24 03/21/25 Rx gabapentin 300 mg capsule 300 mg PO TID PRN Radiculopathy 03/21/25 Rx #90 caps buspirone 10 mg tablet 10 mg PO BID anxiety #180 tabs 03/21/25 Rx cariprazine 1.5 mg capsule 1.5 mg PO QDAY #30 caps 03/21/25 0 03/21/25 Rx (Vraylar) Nurse's Note: REPORTS INCREASED DEPRESSIVE EPISODES; THOUGHT LEAVING JOB WOULD BE BENEFICIAL, BUT DOES NOT SEEM TO HAVE BEE THE ANSWER [facility] Medical History Pre-syncope Thyromegaly Neuropathy Right knee pain Change in skin mole Flu vaccine need Hypersomnolence Lumbar radiculopathy, chronic Chronic nasal congestion Chronic diarrhea Panic attacks Thyroid nodule Constipation Obesity (BMI 30-39.9) Seasonal allergies Migraine with aura and without status migrainosus Depression with anxiety Seasonal allergies Back pain Diarrhea Severe headache Fatigue Surgical History History of back surgery H/O breast biopsy Family History Grandmother Breast cancer Arthritis Diabetes High cholesterol Mother Asthma Seizures Father Migraines Hypertension Social History Smoking Status: Never smoker alcohol intake: current Alcohol type: wine details: social substance use type: does not use caffeine: Yes what type of physical activity do you participate in: walking seatbelt use: always do you feel safe at home: Yes additional social history: [facility] [place] Cou[employer] Patient works for [employer] Questionnaire [facility]-9 BMS Over the last 2 weeks, how often have you been bothered by any of the following problems? 1. Little interest or pleasure in doing things: nearly every day 2. Feeling down, depressed, or hopeless: nearly every day 3. Trouble falling or staying asleep, or sleeping too much: nearly every day 4. Feeling tired or having little energy: nearly every day 5. Poor appetite or overeating: not at all 6. Feeling bad about yourself - or that you are a failure or have let yourself and your family down: nearly every day 7. Trouble concentrating on things, such as reading the newspaper or watching television: more than half the days 8. Moving or speaking so slowly that other people could have noticed? - Or the opposite - being so fidgety or restless that you have been moving around a lot more than usual: not at all 9. Thoughts that you would be better off or of hurting yourself in some way: several days Total score: 18 If you checked off any problems, how difficult have these problems made it for you to do your work, take care of things at home, or get along with other people?: extremely difficult Source: Developed by Drs. Nahid Lamb, Yazmin Hernandez, Mich Delaney and colleagues, with an educational iveth from [employer]. LU-7 BMS UL-7 Feeling nervous, anxious, or on edge: 3 = Nearly every day Not being able to stop or control worryin = Nearly every day Worrying (more content not included)... Normal [facility] - Chemistry and C hemistry - challengeOrdered By: Spenser Brown on 03-21-2025 AST [Catalytic activity/Vol] 17 U/L <32 [facility] MCV (mean corpuscular volume ) determinationOrdered By: Efaudreyongbe Rege on 03-21-2025 MCV (RBC) [Entitic vol] 88.5 fL 81-99 [facility] Mean corpuscular hemoglobin (MCH) determinationOrdered By: Efaudreyongbe Rege on 03-21-2025 MCH (RBC) [Entitic mass] 30.1 pg 27.0-32.0 [facility] Mean corpuscular hemoglobin concentration (MCHC) determinationOrdered By: Daniellebe Kevin on 03-21-2025 MCHC (RBC) [Mass/Vol] 34.0 g/dL 32-36 [facility] Mean platelet volume determi nationOrdered By: Mansiongbe Rege on 03-21-2025 Platelet mean volume (Bld) [Entitic vol] 11.3 fL 6.2-12.0 [facility] Monocyte percentageOrdered B y: Efewongbe Benghe on 03-21-2025 Monocytes/100 WBC (Bld) 7.5 % 0-10 [facility] Neutrophil percentageOrdered By: Efaudreyongbe Rege on 03-21-2025 Neutrophils/100 WBC (Bld) 59.5 % 47-70 [facility] Nucleated red blood cell per centageOrdered By: Mansiongbe Rege on 03-21-2025 Nucleated RBC/100 WBC (Bld) [Ratio] 0 % 0-5 [facility] Platelet countOrdered By: Ef audreyongbe Rege on 03-21-2025 Platelets (Bld) [#/Vol] 289 10*3/uL 150-450 [facility] Potassium measurement (mass/ volume)Ordered By: Spenser Brown on 03-21-2025 Potassium (Unsp spec) [Mass/Vol] 4.2 mmol/L 3.3-5.1 [facility] RBC Auto (Bld) [#/Vol]Ordere d By: Spenser Brown on 03-21-2025 RBC (Bld) [#/Vol] 4.79 10*6/uL 4.2-5.4 [facility] Serum creatinine measurement (mass/volume)Ordered By: Spenser Brown on 03-21-2025 Creatinine [Mass/Vol] 0.72 mg/dL 0.70-1.20 [facility] Serum globulin measurementOr dered By: Spenser Brown on 03-21-2025 Globulin (S) [Mass/Vol] 3.3 g/dL 2.2-4.2 [facility] Serum glucose measurement (m ass/volume)Ordered By: Spenser Brown on 03-21-2025 Glucose [Mass/Vol] 100 mg/dL High 70-99 [facility] Serum or plasma alanine webb otransferase (ALT) measurementOrdered By: Spenser Brown on 03-21-2025 ALT [Catalytic activity/Vol] 19 U/L <35 [facility] Serum or plasma albumin laly urement (mass/volume)Ordered By: Spenser Brown on 03-21-2025 Albumin [Mass/Vol] 4.4 g/dL 3.5-5.0 [facility] Serum or plasma albumin/glob ulin mass ratioOrdered By: Spenser Brown 03-21-2025 Albumin/Globulin [Mass ratio] 1.3 {ratio} 0.9-2.4 [facility] Serum or plasma alkaline jb sphatase measurementOrdered By: Spenser Brown on 03-21-2025 ALP [Catalytic activity/Vol] 69 U/L 35-104 [facility] Serum or plasma calcium laly urement (mass/volume)Ordered By: Spenser Brown on 03-21-2025 Calcium [Mass/Vol] 9.7 mg/dL 7.6-11.0 [facility] Serum or plasma urea nitroge n measurement (mass/volume)Ordered By: Lillieaudreythania Brown on 03-21-2025 Urea nitrogen [Mass/Vol] 9 mg/dL 4-19 [facility] Sodium levelOrdered By: Mansi Brown on 03-21-2025 Sodium [Moles/Vol] 138 mmol/L 133-145 [facility] T4 Free Directon 03-21-2025 T4 FREE DIRECT 1.10 ng/dL Normal 0.76-1.46 [facility] Comment on above: Performed By: #### L 501.9520, L506.1001, L100.0100, L503.0106, L506.0400, L500.4050 #### [facility] [address] [place], [address] T4 freeOrdered By: Spenser Bensadiqmihir on 03-21-2025 Free T4 [Mass/Vol] 1.10 ng/dL 0.76-1.46 [facility] TSH DL <= 0.005 mIU/L QnOrde red By: Spenser Brown on 03-21-2025 TSH Qn 1.950 uIU/mL 0.300-4.20 0 [facility] Thyroid Stim Hormone (TSH)on 03-21-2025 TSH 1.950 uIU/mL Normal 0.300-4.20 0 [facility] Comment on above: Performed By: #### L 501.9520, L506.1001, L100.0100, L503.0106, L506.0400, L500.4050 #### [facility] [address] [place], [address] Total proteinOrdered By: Daron Finneymihir on 03-21-2025 Protein [Mass/Vol] 7.7 g/dL 5.9-8.4 [facility] Vitamin B12on 03-21-2025 Cobalamin (Vitamin B12) [Mass/Vol] 1313 pg/mL High 180-914 [facility] Comment on above: Performed By: #### L 501.9520, L506.1001, L100.0100, L503.0106, L506.0400, L500.4050 #### [facility] [address] [place], [address] Vitamin B12 ser/plasOrdered By: Spenser Brown on 03-21-2025 Cobalamin (Vitamin B12) [Mass/Vol] 1313 pg/mL High 180-914 [facility] Vitamin D,25 Hydroxyon 03-21 Vitamin D 25-OH 36.4 ng/mL Normal 30-100 [facility] Comment on above: Result Comment: Nicolle min D Status Deficiency: <20 ng/mL (50nmol/L) Insufficiency: 20-30 ng/mL (50-75 nmol/L) Sufficiency: 30-100 ng/mL (75-250 nmol/L) Toxicity: >100 ng/mL (>250 nmol/L) Performed By: #### L 501.9520, L506.1001, L100.0100, L503.0106, L506.0400, L500.4050 #### [facility] [address] [place], [address] White blood cell (WBC) count Ordered By: Spenser Brown on 03-21-2025 WBC (Bld) [#/Vol] 7.3 10*3/uL 4.4-11.0 [facility] PT D/C Summary (1)on 025 PT D/C Summary (1) [facility] [address] [place] [address] / REHABILITATION SERVICES DISCHARGE SUMMARY MR#: [id number] Acct: [id number] Name: JEN DIOR CIARA Rep #: [id number] : 1995 29 From: Arnol Ritter DPT Referring Dr.: Dr. Enrrique Dewitt MD Status: R EG RCR Insurance: [employer] SELF PAY INSURANCE Discharge Summary D/C summary: It has been my pleasure to treat JEN DIOR referred by Dr. Enrrique Dewitt MD, with the diagnosis of Strain of muscle fascia and tendon, spondylosis/dorsalgia for a total of 20 visit(s). Discharge Date: 12/26/24 Please see the following information for a summary of their discharge status. Subjective Subjective: Pt. reports being 75% better overall. Pt. reports having some good and bad days, but the good days are more often. Pt. does not have as much in her legs, when she does get it, it is in her back. Pain back pain: Pain Intensity (Out of 10): 1 R leg pain : Pain Intensity (Out of 10): 0 Overall Improvement % Improvement: 75 Objective Objective/Function: Lumbar ROM: flexion full no issues, ext min loss NE, SB full motion NE bilat, rotation full motion NE. Pt. has good HS length. MMT: full strength throughout BLEs. Pt. has fair- core strength. No distal symptoms. Pt. is independent with her current HEP. Pt. is to continue with her HEP on her own at this point in time. Goals Goal 1:: I HEP Goal 2:: Abolish R leg pain with sitting and ADL's Goal Progress: Goal Met Goal 3:: Be able to get through her day without having to take pain medication for her back and leg pain Goal Progress: Goal Met Goal 4:: Centralize LBP Goal Progress: Goal Met Goal 5:: LTG: Pt. to have increased lumbar ROM to full without increase in symptoms. Goal Progress: Goal Met Plan Plan: Pt. to be DC to HEP at this point in time. D/C Information d/c sentence: If there are questions or concerns regarding this patient's physical therapy, please feel free to call me at [phone]. Thank you for the referral of this patient. Sincerely, Arnol Ritter, DPT Balance/Gait/Functional tests Balance/Special Test Scores Oswestry Low Back Score: 7 Improvement % Improvement: 75 12/26/24 [id number] CC: Dr. Spenser Brown MD; Dr. Enrrique Dewitt MD CLS Signed Normal [facility] Re-Evaluation - PT (1)on Re-Evaluation - PT (1) [facility] [address] [place] [address] / REEVALUATION / MEDICARE RECERTIFICATION PHYSICAL THERAPY MR#: [id number] Acct: [id number] Name: JEN DIOR Rep #: [id number] : 1995 29 From: Arnol Ritter DPT Referring Dr.: Dr. Enrrique Dewitt MD Status:REG RCR Insurance: [employer] S[employer]F PAY INSURANCE Re-Evaluation Intro: Dr. Enrrique Dewitt MD, It has been my pleasure to treat JEN DIOR over the last 9 visits for Strain of muscle fascia and tendon, spondylosis/dorsalgia. Please see the progress note below for an update on the physical therapy plan of care! Subjective Subjective: Pt. reports having a bad past few days. Pt. reports she does have symptoms down both legs at times currently down her RLE to her calf. Pt. reports bulk of her pain is in her back, but does have N/T in her legs. Pt. reports pain at 6/10 today. Objective Objective/Function: ROM: LUMBAR SPINE: flexion mn/mod loss increase NW, ext mod loss increase NW, SB min loss bilat NE, rotation min loss bilat NE. Pt. has normal hip ROM bilaterally without increase in symptoms. Pt. did have a + response with prone lying, but did become stiff with prolonged lying. Pt. reported centralization of LE symptoms to buttocks on R side. Pt. did much better with prone lying compared to SHWETA. I want to continue with working progressive extension program. Light core stability, multifidus strengthening and neutral spine core strengthening. Plan Plan Plan: I want to continue with working progressive extension program. Light core stability, multifidus strengthening and neutral spine core strengthening. May use IFC as needed for pain. Balance/Gait/Functional tests Balance/Special Test Scores Oswestry Low Back Score: 18 Goals Goals Goal 1:: I HEP Goal Time Frame: 6-8 Weeks Goal 2:: Abolish R leg pain with sitting and ADL's Goal Time Frame: 6-8 Weeks Goal Progress: Progressing Goal 3:: Be able to get through her day without having to take pain medication for her back and leg pain Goal Time Frame: 6-8 Weeks Goal Progress: Progressing Goal 4:: Centralize LBP Goal Time Frame: 6-8 Weeks Goal Progress: Progressing Goal 5:: LTG: Pt. to have increased lumbar ROM to full without increase in symptoms. Goal Time Frame: 4-6 Weeks Goal Progress: Progressing Anticipated Interventions Anticipated Interventions Patient/Client Instruction: Educate patient on: Condition and Plan of Care For the Purpose of:: To decrease pain, To increase ROM, To improve nutrient delivery to tissue, To improve muscle performance and motor function, To improve ability to perform ADL's, To increase tolerance to activity/condition/position, To improve performance and independence with ADL's, To decrease level of supervision to perform tasks, To improve ability of physical actions for home/community/work/leisure, To improve health of tissue, To decrease soft tissue restriction and To increase flexibility/ROM Therapeutic Exercise to Include: Strength training, Endurance training, Body mechanics, Postural training, Flexibilty training, Active ROM, Dynamic Lumbar Stabilization, Michaela Exercises and Sc apular Strength/Stabilization For the Purpose of:: To decrease pain, To increase ROM, To improve nutrient delivery to tissue, To improve muscle performance and motor function, To improve ability to perform ADL's, To increase tolerance to activity/condition/position, To improve performance and independence with ADL's, To decrease level of supervision to perform tasks, To improve ability of physical actions for home/community/work/leisure, To improve gait and locomotor functions, To improve health of tissue, To decrease soft tissue restriction and To increase flexibility/ROM Manual Therapy Techniques to Include: Mobilization and Soft tissue mobilization For the Purpose of:: To decrease pain, To increase ROM, To improve nutrient delivery to tissue and To improve muscle performance and motor function TENS: Yes Cryotherapy (ice pack, ice massage): Yes Thermo therapy (hot pack): Yes For the Purpose of:: To decrease pain, To decrease swelling/inflammation, To increase ROM, To improve nutrient delivery to tissue, To improve muscle performance and motor function and To improve ability to perform ADL's Re-Evaluation Ending Re-evaluation ending: Please do not hesitate to contact me at [phone] by phone or if you have questions or concerns regarding this new plan of care! Sincerely, Arnol Ritter, DPT 11/05/24 1012 CC: Dr. Spenser Brown MD; Dr. Enrrique Dewitt MD CLS Signed For Medicare only, by signing this I certify the plan of care. Physicians Signature Date Normal [facility] Inital Evaluation (1) - PTon 10-03-2024 Inital Evaluation (1) - PT [facility] [facility] [place] [address] / REHABILITATION SERVICES INITIAL EVALUATION MR#: [id number] Acct: [id number] Name: JEN DIOR Rep #: [id number] : 1995 29 From: Radha MATOS Referring Dr.: Dr. Enrrique Dewitt MD Status: R EG R Insurance: [employer] SELF PAY INSURANCE Patient's Visit Information Visit Information Visit Information: JEN DIOR is a 29 year old F referred to Physical Therapy by Dr. Enrrique Dewitt MD with a diagnosis of Strain of muscle fascia and tendon, spondylosis/dorsalgia. Date of Evaluation: 10/03/24 Physical Therapist: SHAWNA Ceballos Visit Plan Frequency: 2x /Week Duration: 2 Months Plan: see effectivness of prone press up 2X/ week for 8 weeks for centralization of sx, core stability, postural exercises with HEP HEP: prone press up Subjective Subjective: Pt was here 5 years ago for back pain and she ended up having a micro for HD. Starting in February she had an episode of pain and it did not fully go away. It has been pretty consistent since February. She decided she needed to see the Dr and met with a new surgeon. She had an x-ray. There is some thinning where the HD was and the one lower than that. He was not surprised by that. She has worked to maintain some of the exercises that she did last PT session ( bug) bridges and stretches) and she is not consistent but does do them. Her current symptoms (numbness in B feet now on the R side (L was from the surgery) and gets pain all the way down the R leg (burning, pain etc). She takes meloxicam daily and Gabapentin 80% of the time. She is able to sleep at night most of the time but does take pain meds at night. She reports that she is better standing and sitting is the worst. Laying down is the best. 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 Stairs: not an issue for her back but has bad knees. She does feel that she has LE weakness on bad days. The numbness on the R side does come and go. Pain back pain: Pain Intensity (Out of 10): 3 R leg pain : Pain Intensity (Out of 10): 0 Comment: numbness in feet / Objective Objective: Gait: Walks with decrease stride length and no trunk rotation Pt has some weakness with DF. Pt is able to heel raise without an issue. LE MMT: R hip flex 13.9 and L 12.6 R knee ext 15.1 and L 12.3 R knee flex 6.4 and L 7.6 R hip abd 11.2 and 14.8 R hip ext 12.8 and L 11.3 Trunk AROM: flex 100, ext 50% (increase pain), SB B 50%, ROT B 50% Full Bridge +SLR on R for R sided back pain and negative on the L Patellar DTR 3+/3 B Prone lying; baseline back pain... Prone to JAMA... baseline pain but no worse..... Prone to JAMA X 10.... increase pain while doing the movement but resolved back to baseline in 2 minutes. Repeated Prone to JAMA holding JAMA X 5 seconds.....still increased her back pain but not as bad (we changed the way she did the Prone to JAMA with less trunk rotation) and returned to baseline pain at at 2 minutes. Press up 1 X 5 (feels close to baseline) and the another 1 X 5 (feels close to baseline when done) Balance/Special Test Scores Oswestry Low Back Score: 21 Goals Goal 1:: I HEP Goal Time Frame: 6-8 Weeks Goal 2:: Abolish R leg pain with sitting and ADL's Goal Time Frame: 6-8 Weeks Goal 3:: Be able to get through her day without having to take pain medication for her back and leg pain Goal Time Frame: 6-8 Weeks Goal 4:: Centralize LBP Goal Time Frame: 6-8 Weeks Rehabilitation Potential Rehabilitation Potential: Good Anticipated Interventions Patient/Client Instruction: Educate patient on: Condition and Plan of Care For the Purpose of:: To decrease pain, To increase ROM, To improve nutrient delivery to tissue, To improve muscle performance and motor function, To improve ability to perform ADL's, To increase tolerance to activity/condition/position, To improve performance and independence with ADL's, To decrease level of supervision to perform tasks, To improve ability of physical actions for home/community/work/leisure, To improve health of tissue, To decrease soft tissue restriction and To increase flexibility/ROM Therapeutic Exercise to Include: Strength training, Endurance training, Body mechanics, Postural training, Flexibilty training, Active ROM, Dynamic Lumbar Stabilization, Michaela Exercises and Scapular Strength/Stabilization For the Purpose of:: To decrease pain, To increase ROM, To improve nutrient delivery to tissue, To improve muscle performance and motor function, To improve ability to perform ADL's, To increase tolerance to activity/condition/position, To improve performance and independence with ADL's, To decrease level of supervision to perform tasks, To improve ability of physical actions for home/community/work/leisure, To improve gait (more content not included)... Normal [facility] Internal Medicine Office Vis iton 09-19-2024 Internal Medicine Office Visit [facility] [address] [place] [address] [place] [address] OFFICE VISIT Date of Service: 09/19/24 MR#: [id number] Acct: [id number] Name: JEN DIOR Rep #: [id number] : 1995 Provider: Dr. 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 Accompanied by: Self Is patient in pain?: No Allergies amoxicillin Allergy (Verified 09/19/24 15:01) Anaphylaxis codeine Allergy (Verified 09/19/24 15:01) Anaphylaxis Medications ???Medication ???Instructions ???Recorded ???Confirmed ???Type cetirizine 10 mg capsule (Zyrtec) 10 mg PO DAILY 07/07/20 09/19/24 History lactobacillus combination no.4 3 3,000 mmu cells PO DAILY 04/14/23 09/19/24 History billion cell capsule (Probiotic) nystatin 100,000 unit/gram topical 1 applic topical BID PRN 09/21/23 09/19/24 History ointment bupropion HCl 150 mg 24 hr tablet, 150 mg PO QAM #90 tabs 03/19/24 09/19/24 Rx extended release (Wellbutrin XL) gabapentin 300 mg capsule 300 mg PO TID PRN Radiculopathy 03/19/24 09/19/24 Rx #90 caps buspirone 10 mg tablet 10 mg PO BID anxiety #180 tabs 06/13/24 09/19/24 Rx meloxicam 15 mg tablet 15 mg PO DAILY PRN pain #90 tabs 07/03/24 09/19/24 Rx cyclobenzaprine 10 mg tablet 10 mg PO TID PRN muscle spasm #90 07/31/24 09/19/24 Rx tabs mecobalamin (vitamin B12) 1,000 1,000 mcg PO QDAY 08/15/24 09/19/24 History mcg chewable tablet drospirenone 3 mg-ethinyl 1 tab PO QDAY #84 tabs 08/24/24 09/19/24 Rx estradiol 0.02 mg tablet (CHIN (28)) [facility] Medical History (Updated 09/19/24 @ 15:[address] Spenser Brown MD) Pre-syncope Thyromegaly Neuropathy Right knee pain Change in skin mole Flu vaccine need Hypersomnolence Lumbar radiculopathy, chronic Chronic nasal congestion Chronic diarrhea Panic attacks Thyroid nodule Constipation Obesity (BMI 30-39.9) Seasonal allergies Migraine with aura and without status migrainosus Depression with anxiety Seasonal allergies Back pain Diarrhea Severe headache Fatigue Surgical History History of back surgery H/O breast biopsy Family History Grandmother Breast cancer Arthritis Diabetes High cholesterol Mother Asthma Seizures Father Migraines Hypertension Social History Smoking Status: Never smoker alcohol intake: current Alcohol type: wine details: social substance use type: does not use caffeine: Yes what type of physical activity do you participate in: walking seatbelt use: always do you feel safe at home: Yes additional social history: [employer] Patient works for [employer] HPI HPI Chief Complaint: 6m fu Details: JEN DIOR, is a 29 F who presents to the office today for follow-up of her chronic conditions. Was seen a few weeks ago for an acute visit due to acute on chronic back pain. Advised that she follow-up with her spine surgeon which she did at the [facility] and recommendation was for physical therapy. Yet to start this. She states that pain is improving and much better than it was at her last visit. No change in bowel or bladder habit. She reports an episode of almost passing out. First episode was during a severe pain event and the other was last week while she was not feeling well. She states that she felt like she was going to but does not think she passed out. Ravenel better after she laid down for a few minutes. Not sure about her blood pressure or heart rate during these events. Other chronic medical conditions are stable. History of anxiety and depression. Continues with therapy which she finds helpful. Also on Wellbutrin and buspirone. ROS Const Constitutional: No body ache, chills, excessive sweating, fatigue, fever(s), frequent falls, headache(s), snoring, weakness or change in appetite Eyes Eyes: No blurry vision, change in vision, floaters, visual disturbances, eye pain or Light sensitivity ENT ENT: No abnormal hearing, ear or mastoid pain, tinnitus, balance problems, nosebleed/epistaxis, nasal congestion, headache(s), neck pain or sore throat Resp Respiratory: No cough, excessive phlegm production, pain on inspiration, shortness of breath, snoring or wheezing Cardio Cardiology: No carlotta (more content not included)... Normal [facility] - Microbiology an d Antimicrobial susceptibilityon 09-11-2024 SARS-CoV-2 (COVID-19) RNA NAILA+probe Ql (Unsp spec) Not detected [facility] No Panel Informationon 09-11 Influenza Types A,B Rapid (Clinic) Not detected [facility] S. pyogenes Ag IA.rapid Ql ( Throat)on 09-11-2024 S. pyogenes Ag IA Ql (Unsp spec) Negative [facility] Urgent Care Visit Reporton 1 Urgent Care Visit Report [facility] [address] , [address] [place] [address] OFFICE VISIT Date of Service: 09/11/24 MR#: [id number] Acct: [id number] Name: JEN DIOR Rep #: [id number] : 1995 Provider: ADRIENNE Will Age/Sex: 29/F Location[place] [facility] Status: Signed Intake Vital Signs 08/24/24 16:01 09/11/24 09:38 Height 5 ft 6 in 5 ft 6 in Weight: 216 lb BMI 34.8 BP 120/70 Blood Pressure Location Lt brachial Position Sitting Respiration 12 Pulse 114 H Pulse Source NIBP Temp 99.1 F Temp Source Oral Pulse Oximetry (%) 98 Oxygen Delivery Method room air Intake Visit Reasons: SORE THROAT, EAR PAIN, BODY ACHES Chief Complaint: Annual Allergies amoxicillin Allergy (Verified 08/24/24 15:52) Anaphylaxis codeine Allergy (Verified 08/24/24 15:52) Anaphylaxis [facility] Medical History Thyromegaly Neuropathy Right knee pain Change in skin mole Flu vaccine need Hypersomnolence Lumbar radiculopathy, chronic Chronic nasal congestion Chronic diarrhea Panic attacks Thyroid nodule Constipation Obesity (BMI 30-39.9) Seasonal allergies Migraine with aura and without status migrainosus Depression with anxiety Seasonal allergies Back pain Diarrhea Severe headache Fatigue Surgical History History of back surgery H/O breast biopsy Family History Grandmother Breast cancer Arthritis Diabetes High cholesterol Mother Asthma Seizures Father Migraines Hypertension Social History Smoking Status: Never smoker alcohol intake: current Alcohol type: wine details: social substance use type: does not use caffeine: Yes what type of physical activity do you participate in: walking seatbelt use: always do you feel safe at home: Yes additional social history: [employer] Patient works for [employer] HPI HPI Chief Complaint: Annual Details: JEN DIOR, is a 29 F who presents to the office today for initial evaluation in the [facility] for approximately 3 day history of persistent fatigue, BENEDICT along w/ sore throat x48 hours. No c/o fever, chills, cough, myalgias, congestion/ runny nose, nausea, and diarrhea. Patient notes no complaints of chest pain or shortness of breath or dyspnea on exertion. [place] cold and flu of no benefit except causing mild nausea. Non-smoker. Spouse w/ similar URI complaints. No vqkq-[id number] taken to assist. No other associated symptoms and no other alleviating/aggravating factors. ROS Const Constitutional: No other (As above) Exam Const General: cooperative, healthy appearing and no acute distress Orientation: alert, awake and oriented x3 HENMT Head: normal to inspection Ears: hearing grossly normal bilaterally, external ears normal, TM's normal bilaterally and EAC's normal Nose: external nose normal, nares normal, septum normal and clear nasal discharge Face and sinus: normal facial exam, sinuses nontender and face symmetric Mouth: oral mucosae normal, lip normal, tongue normal and oropharynx normal Throat: posterior oropharynx normal, tonsils normal except trace erythema, uvula midline and no postnasal drainage Eyes General: appearance normal, both eyes and all related structures Neck Neck: normal visual inspection, full ROM, no lymphadenopathy, no meningeal signs and supple Neck mass: No Thyroid: thyroid normal Lymphatic: no lymphadenopathy noted Chest Chest palpation inspection: normal inspection of the chest Resp Effort Inspection: normal respiratory effort, able to speak in complete sentences and no unsolicited cough during today's exam Auscultation: Bilateral: Clear to Auscultation Cardio Palpation: normal PMI Rate: tachycardic Rhythm: regular rhythm Heart Sounds: S1 normal, S2 normal, no gallops, no murmurs and no rubs Pulses: radial pulses present Skin General: no rashes or lesions noted Neuro General: patient alert, patient awake and patient oriented x3 Cognition: normal cognition Speech: speech normal Psych Appearance: grossly normal Mental Status: mental status grossly normal Mood: congruent mood Affect: normal affect Speech and Movement: speech and movement normal Attitude: cooperative Diagnoses Contact with or exposure to other viral diseases Z20.828 Acute pharyngitis, unspecified J02.9 Assessment and Plan Assessment and Plan (1) Contact with or exposure to other viral diseases: Status: Acute (2) Acute pharyngitis, unspecified: Status: Acute Plan: See POC results. Supportive measures as instructed today. Follow-up with PCP in 5 to 7 days should sym (more content not included)... Normal [facility] PAP IG HPV APTIMA 16/18,45on 08-31-2024 ADEQ Comment Normal . [facility] Comment on above: Order Comment: Speci men Comment: [id number] Comment: Source.............CervixSpecimen Comment: No. of containers..01 ThinPrep Vial Result Comment: Sati sfactory for evaluation. Endocervical and/or squamous metaplastic cells (endocervical component) are present. Performed By: #### L 501.9520, L506.1001, L100.0100, L503.0106, L506.0400, L500.4050 #### [facility] [address] [place], [place], [id number] COMM . Normal . [facility] Comment on above: Order Comment: Specghada haywood Comment: [id number] Comment: Source.............CervixSpecimen Comment: No. of containers..01 ThinPrep Vial Performed By: #### L 501.9520, L506.1001, L100.0100, L503.0106, L506.0400, L500.4050 #### [facility] [address] [place], [place], [id number] COMMENT Comment Normal . [facility] Comment on above: Order Comment: Speci men Comment: [id number] Comment: Source.............CervixSpecimen Comment: No. of containers..01 ThinPrep Vial Result Comment: This liquid based ThinPrep(R) pap test was screened with the use of an image guided system. Performed By: #### L 501.9520, L506.1001, L100.0100, L503.0106, L506.0400, L500.4050 #### [facility] [address] [place], [place], [id number] DIAG Comment Normal . [facility] Comment on above: Order Comment: Speci men Comment: [id number] Comment: Source.............CervixSpecimen Comment: No. of containers..01 ThinPrep Vial Result Comment: NEGA TIVE FOR INTRAEPITHELIAL LESION OR MALIGNANCY. Performed By: #### L 501.9520, L506.1001, L100.0100, L503.0106, L506.0400, L500.4050 #### [facility] [address] [place], [place], [id number] HPV APTIMA, HR Negative Normal Negative [facility] Comment on above: Order Comment: Speci men Comment: [id number] Comment: Source.............CervixSpecimen Comment: No. of containers..01 ThinPrep Vial Result Comment: This nucleic acid amplification test detects fourteen high- risk HPV types (16,18,31,33,35,39,45,51,52,56,58,59,66,68) without differentiation. Performed By: #### L 501.9520, L506.1001, L100.0100, L503.0106, L506.0400, L500.4050 #### [facility] [address] [place], [address] HPV Ly Rfx Comment Normal . [facility] Comment on above: Order Comment: Speci men Comment: [id number] Comment: Source.............CervixSpecimen Comment: No. of containers..01 ThinPrep Vial Result Comment: Crit ercameron not met, HPV Genotype not performed. Performed at: - [facility] [id number] Want Ad Receiver: Citlali Calero MD, Phone: [phone] Performed at: = - [facility] [address] [id number] Want Ad Receiver: Citlali Calero MD, Phone: [phone] Performed By: #### L 501.9520, L506.1001, L100.0100, L503.0106, L506.0400, L500.4050 #### [facility] [address] [place], [address] PAPSMR Comment Normal . [facility] Comment on above: Order Comment: Speci men Comment: [id number] Comment: Source.............CervixSpecimen Comment: No. of containers..01 ThinPrep Vial Result Comment: The Pap smear is a screening test designed to aid in the detection of premalignant and malignant conditions of the uterine cervix. It is not a diagnostic procedure and should not be used as the sole means of detecting cervical cancer. Both false-positive and false-negative reports do occur. Performed By: #### L 501.9520, L506.1001, L100.0100, L503.0106, L506.0400, L500.4050 #### [facility] [address] [place], [address] PERFORM Comment Normal . [facility] Comment on above: Order Comment: Speci men Comment: [id number] Comment: Source.............CervixSpecimen Comment: No. of containers..01 ThinPrep Vial Result Comment: Sharon Davey, Dispatch Lead (ASCP) Performed By: #### L 501.9520, L506.1001, L100.0100, L503.0106, L506.0400, L500.4050 #### [facility] [address] [place], [address] Operational Trainer Office Visit Reporton 08-24-2024 Operational Trainer Office Visit Report [facility] [address], [address] [place] [address] OFFICE VISIT Date of Service: 08/24/24 MR#: [id number] Acct: [id number] Name: JEN DIOR Rep #: [id number] : 1995 Provider: Dr. 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 Is patient in pain?: No Allergies amoxicillin Allergy (Verified 08/24/24 15:52) Anaphylaxis codeine Allergy (Verified 08/24/24 15:52) Anaphylaxis Medications ???Medication ???Instructions ???Recorded ???Confirmed ???Type cetirizine 10 mg capsule (Zyrtec) 10 mg PO DAILY 07/07/20 08/24/24 History lactobacillus combination no.4 3 3,000 mmu cells PO DAILY 04/14/23 08/24/24 History billion cell capsule (Probiotic) nystatin 100,000 unit/gram topical 1 applic topical BID PRN 09/21/23 08/24/24 History ointment bupropion HCl 150 mg 24 hr tablet, 150 mg PO QAM #90 tabs 03/19/24 08/24/24 Rx extended release (Wellbutrin XL) gabapentin 300 mg capsule 300 mg PO TID PRN Radiculopathy 03/19/24 08/24/24 Rx #90 caps buspirone 10 mg tablet 10 mg PO BID anxiety #180 tabs 06/13/24 08/24/24 Rx meloxicam 15 mg tablet 15 mg PO DAILY PRN pain #90 tabs 07/03/24 08/24/24 Rx cyclobenzaprine 10 mg tablet 10 mg PO TID PRN muscle spasm #90 07/31/24 08/24/24 Rx tabs mecobalamin (vitamin B12) 1,000 1,000 mcg PO QDAY 08/15/24 08/24/24 History mcg chewable tablet drospirenone 3 mg-ethinyl 1 tab PO QDAY #84 tabs 08/24/24 08/24/24 Rx estradiol 0.02 mg tablet (CHIN (28)) Is last menstrual period known: No Post menopausal: No Patient : No : No Control Method: OCP Nurse's Note: No menses, takes OCP continuously. [facility] Medical History Thyromegaly Neuropathy Right knee pain Change in skin mole Flu vaccine need Hypersomnolence Lumbar radiculopathy, chronic Chronic nasal congestion Chronic diarrhea Panic attacks Thyroid nodule Constipation Obesity (BMI 30-39.9) Seasonal allergies Migraine with aura and without status migrainosus Depression with anxiety Seasonal allergies Back pain Diarrhea Severe headache Fatigue Surgical History History of back surgery H/O breast biopsy Family History Grandmother Breast cancer Arthritis Diabetes High cholesterol Mother Asthma Seizures Father Migraines Hypertension Social History Smoking Status: Never smoker alcohol intake: current Alcohol type: wine details: social substance use type: does not use caffeine: Yes what type of physical activity do you participate in: walking seatbelt use: always do you feel safe at home: Yes additional social history: [employer]- [employer] Patient works for [employer] History 0 Elective abortions Hx Para Spontaneous abortions Hx # Term Pregnancies Ectopic pregnancies Hx # Pregnancies Multiple births # of living children HPI Encounter for routine gynecological examination Details: JEN DIOR is a 29 year old who presents for annual exam. Last PAP: 12/19/20 nl- Pap w/ HPV today History of abnormal PAP: None Last mammogram: Age 39 History of abnormal mammogram: N/a Other preventative health care screenings: Kevin Female Reproductive History Questions: metorrhagia: No, sexually active: Yes, dyspareunia: Yes and PCB: No Menopausal Symptoms: No hot flashes, No night sweats, No weight change, No mood changes, No difficulty concentrating, No sleep problems and No change in libido ROS Const Constitutional: Reports as per HPI; Denies fatigue, increased appetite, poor appetite, night sweats, weight gain or weight loss Cardio Card: Denies chest pain Resp Resp: Denies cough or dyspnea GI GI: Reports as per HPI and constipation; Denies abdominal pain, bloating, nausea or vomiting : Reports as per HPI, vaginal dryness and other; Denies difficulty voiding, dysuria, hematuria, hot flashes, nipple discharge, pelvic pain, prolapse symptoms, urinary frequency, urinary incontinence, urinary urgency, vaginal discharge, vaginal odor or vaginal pruritus Skin Skin/Breast: Denies changing lesions, breast mass, breast pain, breast skin changes or nipple discharge Psych Psych: Denies anxiety, change in libido, depression or difficulty concentrating Exam Const General: (more content not included)... Normal [facility] Internal Medicine Office Vis shankar 08-15-2024 Internal Medicine Office Visit [facility] [address] [place] [address] [place] [address] OFFICE VISIT Date of Service: 08/15/24 MR#: [id number] Acct: [id number] Name: JEN DIOR Rep #: [id number] : 1995 Provider: Dr. Spenser laboy MD Age/Sex: 29/F [place] [facility] Status: Signed Intake Vital Signs 05/25/24 08:57 08/15/24 14:55 Height 5 ft 6 in 5 ft 6 in Weight: 218 lb BMI 35.2 BP 118/82 H Blood Pressure Location Lt brachial Position Sitting Respiration 16 17 Pulse 91 Pulse Source Monitor Temp 98.4 F Temp Source Temporal Pulse Oximetry (%) 99 Oxygen Delivery Method room air Intake Visit Reasons: Back pain Chief Complaint: Back pain Is patient in pain?: Yes (4 lower back pain ) Allergies amoxicillin Allergy (Verified 08/15/24 14:53) Anaphylaxis codeine Allergy (Verified 08/15/24 14:53) Anaphylaxis Medications ???Medication ???Instructions ???Recorded ???Confirmed ???Type cetirizine 10 mg capsule (Zyrtec) 10 mg PO DAILY 07/07/20 08/15/24 History lactobacillus combination no.4 3 3,000 mmu cells PO DAILY 04/14/23 08/15/24 History billion cell capsule (Probiotic) nystatin 100,000 unit/gram topical 1 applic topical BID PRN 09/21/23 08/15/24 History ointment bupropion HCl 150 mg 24 hr tablet, 150 mg PO QAM #90 tabs 03/19/24 08/15/24 Rx extended release (Wellbutrin XL) gabapentin 300 mg capsule 300 mg PO TID PRN Radiculopathy 03/19/24 08/15/24 Rx #90 caps drospirenone 3 mg-ethinyl 1 tab PO QDAY #84 tabs 05/29/24 08/15/24 Rx estradiol 0.02 mg tablet (CHIN (28)) buspirone 10 mg tablet 10 mg PO BID anxiety #180 tabs 06/13/24 08/15/24 Rx meloxicam 15 mg tablet 15 mg PO DAILY PRN pain #90 tabs 07/03/24 08/15/24 Rx cyclobenzaprine 10 mg tablet 10 mg PO TID PRN muscle spasm #90 07/31/24 08/15/24 Rx tabs mecobalamin (vitamin B12) 1,000 1,000 mcg PO QDAY 08/15/24 08/15/24 History mcg chewable tablet methylprednisolone 4 mg tablets in See Rx Instructions PO PER PKG DIR 08/15/24 08/15/24 Rx a dose pack (Medrol (Petr)) #21 tabs Nurse's Note: pt reports that she has had 2 "really bad episodes of back pain, states that she almost blacked out due to pain" pt denies any injury to lower back states the pain extends down right leg. [facility] Medical History Thyromegaly Neuropathy Right knee pain Change in skin mole Flu vaccine need Hypersomnolence Lumbar radiculopathy, chronic Chronic nasal congestion Chronic diarrhea Panic attacks Thyroid nodule Constipation Obesity (BMI 30-39.9) Seasonal allergies Migraine with aura and without status migrainosus Depression with anxiety Seasonal allergies Back pain Diarrhea Severe headache Fatigue Surgical History History of back surgery H/O breast biopsy Family History Grandmother Breast cancer Arthritis Diabetes High cholesterol Mother Asthma Seizures Father Migraines Hypertension Social History Smoking Status: Never smoker alcohol intake: current Alcohol type: wine details: social substance use type: does not use caffeine: Yes what type of physical activity do you participate in: walking seatbelt use: always do you feel safe at home: Yes additional social history: Travel [employer] Patient works for [employer] HPI HPI Chief Complaint: Back pain Details: JEN DIOR, is a 29 F who presents to the office today for an acute visit. Chronic history of lumbar arthropathy status post surgery. Had been overall stable until a few months ago during the summer break after she had been doing a lot of sitting/traveling, noted worsening back pain with radiation down her right lower extremity. Prior radiation was down her left. No change in bowel or bladder habit. Has been taking gabapentin, meloxicam and Flexeril. This week has been a little better but about 2 weeks ago, she states that she was barely able to get out of bed. ROS Const Constitutional: No body ache, chills, excessive sweating, fatigue, fever(s), frequent falls, headache(s), snoring, weight change, sleep problems, abnormal sleep pattern or change in appetite Eyes Eyes: No blurry vision, change in vision, floaters, visual disturbances, eye pain or Light sensitivity ENT ENT: No abnormal hearing, ear or mastoid pain, tinnitus, balance problems, nosebleed/epistaxis, nasal congestion, headache(s), neck pain or sore throat Resp Respiratory: No cough, excessive phlegm production, pain on inspiration, shortness of breath, snoring or wheezing Cardio Cardiology: No chest pain at rest, chest pain with exertion, excessive swe (more content not included)... Normal [facility] Lumbar Spine 2 or 3 Viewson 08-15-2024 Lumbar Spine 2 or 3 Views [facility] Imaging Services [address] [place], [place] [address] Lumbar Spine 2 or 3 Views MR#: [id number] Acct: [id number] Name: JEN DIOR Rep #: [id number] : 1995 F 29 From: Sebas Christopher PCP: Dr. Spenser Brown MD Status: [facility] Study: Lumbar Spine 2 or 3 Views Date of Exam: Exam# [id number] Ordering Dr: Spenser Brown MD :[id number] INDICATION: Lumbar radiculopathy EXAMINATION/TECHNIQUE: X-RAY - XR Spine Lumbar 2 or 3 Views COMPARISON: Prior study dated: [1319 FINDINGS: VERTEBRAE: Preserved vertebral body height. No fracture. No spondylolisthesis. Preservation of the normal lumbar lordosis. Mild levoscoliosis. DISCS: Narrowing of L4-L5 and L5-S1 disc spaces increased since previous exam. INCLUDED ABDOMEN: Included bowel gas pattern is non-obstructive. RAD/Lumbar Spine 2 or 3 Views IMPRESSION: Narrowing of L4-5 and L5-S1 disc spaces. Electronically Signed: Sebas Sarmiento MD at 17:47 EST , CC: Dr. Spenser Brown MD Weeder: Signed Normal [facility] Miscellaneous Lab Procedureo n 07-27-2024 [facility] LAB TEST Normal [facility] Comment on above: Order Comment: A1C Result Comment: TEST RESULTS LIMITS Hemoglobin A1c Hemoglobin A1c 5.2 % 4.8-5.6 Please Note: Prediabetes: 5.7 - 6.4 Diabetes: >6.4 Glycemic control for adults with diabetes: <7.0 TEST[facility] PERFORMED AT [facility]. ORIGINAL REPORT ON FILE IN LAB CONTAINS ADDITIONAL TEST SITE INFORMATION. Performed By: #### L 500.4100, L801.1541, L501.9520 #### [facility] [address] [place], [address] Lipid Profileon 07-25-2024 Cholesterol [Mass/Vol] 144 mg/dL Normal 200 [facility] Comment on above: Result Comment: <200 mg/dL Desirable 200-240 mg/dL Borderline >240 mg/dL High Risk Performed By: #### L 500.4100, L801.1541, L501.9520 #### [facility] [address] [place], [address] Cholesterol in HDL [Mass/Vol] 54 mg/dL Normal [facility] Comment on above: Result Comment: The drugs N-Acetylcysteine and Metamizole may falsely depress this assay. Reference Range HDL <40 mg/dL Low HDL Cholesterol HDL >or= 60 mg/dL High HDL Cholesterol Performed By: #### L 500.4100, L801.1541, L501.9520 #### [facility] [address] [place], [address] Cholesterol in LDL [Mass/Vol] 64 mg/dL Normal 0-130 [facility] Comment on above: Performed By: #### L 500.4100, L801.1541, L501.9520 #### [facility] [address] [place], [address] Cholesterol in VLDL [Mass/Vol] 26 mg/dL Normal 5-40 [facility] Comment on above: Performed By: #### L 500.4100, L801.1541, L501.9520 #### [facility] [address] [place], [address] Triglyceride [Mass/Vol] 128 mg/dL Normal [facility] Comment on above: Result Comment: The drugs N-Acetylcysteine and Metamizole may falsely depress this assay. Serum Triglycerides Reference Interval Normal <150 mg/dL Borderline high 150 - 199 mg/dL High 200 - 499 mg/dL Very High > or = 500 mg/dL Performed By: #### L 500.4100, L801.1541, L501.9520 #### [facility] [address] [place], [address] Thyroid Stim Hormone (TSH)on 07-25-2024 TSH 1.450 uIU/mL Normal 0.358-3.74 0 [facility] Comment on above: Performed By: #### L 500.4100, L801.1541, L501.9520 #### [facility] [address] [place], [address] Absolute lymphocyte countOrd ered By: Spenser Brown on 09-21-2023 Lymphocytes Auto (Unsp spec) [#/Vol] 2.36 10*3/uL 0.83-4.51 [facility] Basophil percentageOrdered B y: Spenser Brown on 09-21-2023 Basophils/100 WBC (Bld) 0.5 % 0-1 [facility] Bilirubin [Mass/Vol] 0.20 mg/dL 0.20-1.00 [facility] Comment on above: For patients on eltr ombopag therapy, use of Dimension [place] TBIL is not recommended. Chloride [Moles/Vol] 106 mmol/L 98-107 [facility] Eosinophils/100 WBC (Bld) 2.0 % 0-5 [facility] Glucose [Mass/Vol] 101 mg/dL 74-106 [facility] Comment on above: Fasting Glucose resu lt from 100 to 125 mg/dL suggests IMPAIRED HOMEOSTASIS per A.D.A. criteria. Neutrophils (Bld) [#/Vol] 5.2 10*3/uL 2.0-7.7 [facility] Neutrophils/100 WBC (Bld) 62.2 % 47-70 [facility] Potassium [Moles/Vol] 4.1 mmol/L 3.5-5.1 [facility] Protein [Mass/Vol] 7.7 g/dL 6.4-8.2 [facility] Sodium [Moles/Vol] 138 mmol/L 136-145 [facility] WBC (Bld) [#/Vol] 8.3 10*3/uL 4.4-11.0 [facility] Blood erythrocytes count (nu mber/volume)Ordered By: Spenser Brown on 09-21-2023 RBC (Bld) [#/Vol] 4.64 10*6/uL 4.2-5.4 [facility] Blood hemoglobin measurement (mass/volume)Ordered By: Spenser Brown on 09-21-2023 Hemoglobin (Bld) [Mass/Vol] 13.8 g/dL 12.0-15.0 [facility] Blood lymphocytes/100 leukoc ytesOrdered By: Spenser Brown on 09-21-2023 Lymphocytes/100 WBC (Bld) 28.4 % 19-41 [facility] Blood monocytes/100 leukocyt esOrdered By: Spenser Brown on 09-21-2023 Monocytes/100 WBC (Bld) 6.7 % 0-10 [facility] Blood platelet mean volumeOr dered By: Spenser Brown on 09-21-2023 Platelet mean volume (Bld) [Entitic vol] 11.5 fL 6.2-12.0 [facility] Determination of erythrocyte mean corpuscular volume (MCV)Ordered By: Spenser Brown on 09-21-2023 MCV (RBC) [Entitic vol] 92.2 fL 81-99 [facility] Hematocrit Auto (Bld) [Volum e fraction]Ordered By: [facility]olga Brown on 09-21-2023 Hematocrit (Bld) [Volume fraction] 42.8 % 37-47 [facility] - Chemistry and C hemistry - challengeOrdered By: [facility] on 09-21-2023 ALP [Catalytic activity/Vol] 73 U/L 45-117 [facility] ALT [Catalytic activity/Vol] 23 U/L 13-56 [facility] CO2 [Moles/Vol] 26.0 mmol/L 21.0-32.0 [facility] Cobalamin (Vitamin B12) [Mass/Vol] 330 pg/mL 211-911 [facility] Globulin (S) [Mass/Vol] 3.9 g/dL 2.2-4.2 [facility] Urea nitrogen/Creatinine [Mass ratio] 18.8 mg/mg 10-20 [facility] Laboratory - Hematology and Cell countsOrdered By: [facility] Benmihir on 09-21-2023 Erythrocyte distribution width (RBC) [Entitic vol] 41.2 fL 35.1-43.9 [facility] Erythrocyte distribution width (RBC) [Ratio] 12.2 % 11.6-14.6 [facility] Immature granulocytes/100 WBC (Bld) 0.200 % 0.0-0.9 [facility] Comment on above: IG% - Immature Granu locytes (promyelocytes, myelocytes and metamyelocytes) > 1% indicates that a LEFT SHIFT is Present. MCH (RBC) [Entitic mass] 29.7 pg 27.0-32.0 [facility] Nucleated RBC/100 WBC (Bld) [Ratio] 0 % 0-5 [facility] MCHC Auto (RBC) [Mass/Vol]Or dered By: Spenser Brown on 09-21-2023 MCHC (RBC) [Mass/Vol] 32.2 g/dL 32-36 [facility] No Panel InformationOrdered By: Spenser Brown on 09-21-2023 Estimated GFR (MDRD) Amer 109 mL/min >60 [facility] Comment on above: GFR Calc Estimated GFR (MDRD) Non-Af Amer 90 mL/min >60 [facility] Comment on above: Non- GFR Calc Platelets bldOrdered By: Daron Brown on 09-21-2023 Platelets (Bld) [#/Vol] 278 10*3/uL 150-450 [facility] Serum or plasma albumin laly urement (mass/volume)Ordered By: Spenser Brown on 09-21-2023 Albumin [Mass/Vol] 3.8 g/dL 3.2-5.0 [facility] Serum or plasma albumin/glob ulin mass ratioOrdered By: Spenser Brown on 09-21-2023 Albumin/Globulin [Mass ratio] 1.0 {ratio} 0.9-2.4 [facility] Serum or plasma calcium laly urement (mass/volume)Ordered By: Spenser Brown on 09-21-2023 Calcium [Mass/Vol] 9.0 mg/dL 8.5-10.1 [facility] Serum or plasma creatinine m easurement (mass/volume)Ordered By: Spenser Brown on 09-21-2023 Creatinine [Mass/Vol] 0.80 mg/dL 0.55-1.02 [facility] Comment on above: The validity of the calculated GFR & GFRAA in patients over 70 years has not been determined. Clinical correlation is essential. Serum or plasma urea nitroge n measurement (mass/volume)Ordered By: Spenser Brown on 09-21-2023 Urea nitrogen [Mass/Vol] 15 mg/dL 7-18 [facility] Thin prep Papanicolaou smear with manual screeningOrdered By: Spenser Brown on 09-21-2023 Thin prep Papanicolaou smear with manual screening 15 U/L 15-37 [facility] Thin prep Papanicolaou smear with manual screening 6 5-15 [facility] Gram stain for investigation of transfusion reactionOrdered By: Juanita Rolon on 08-22-2023 Microscopic observation Gram stain Nom (Unsp spec) [facility] Thin prep Papanicolaou smear with manual screeningOrdered By: Juanita Rolon on 08-22-2023 Genital Culture Presumptive C albicans [facility] Basophil percentageOrdered B y: Abby Denson on 03-05-2023 Cholesterol [Mass/Vol] 158 mg/dL <200 [facility] Comment on above: <200 mg/dL Desirable 200-240 mg/dL Borderline >240 mg/dL High Risk Triglyceride [Mass/Vol] 98 mg/dL <199 [facility] Comment on above: The drugs N-Acetylcy steine and Metamizole may falsely depress this assay.Serum Triglycerides Reference Interval Normal <150 mg/dL Borderline high 150 - 199 mg/dL High 200 - 499 mg/dL Very High > or = 500 mg/dL Laboratory - Chemistry and C hemistry - challengeOrdered By: Abby Denson on 03-05-2023 Free T4 [Mass/Vol] 0.90 ng/dL 0.76-1.46 [facility] No Panel InformationOrdered By: Abby Denson on 03-05-2023 Follicle Stimulating Hormone 5.9 mIU/mL [facility] Comment on above: NORMAL REFERENCE RAN GES FEMALE FOLLICULAR 2.3 - 12.6 mIU/mL MID-CYCLE PEAK 5.2 - 17.5 mIU/mL LUTEAL 1.7 - 12.9 mIU/mL POST-MENOPAUSAL ON MHT 5.9 - 72.8 mIU/mL NOT ON MHT 12.7 - 132.2 mlU/mL MALE 0.7 - 10.8 mIU/mL Thyroid Stimulating Hormone (TSH) 1.72 uIU/mL 0.358-3.74 [facility] Serum or plasma cholesterol in HDL measurement (mass/volume)Ordered By: Abby Denson on 03-05-2023 Cholesterol in HDL [Mass/Vol] 40 mg/dL >40 [facility] Comment on above: The drugs N-Acetylcy steine and Metamizole may falsely depress this assay. Reference Range HDL <40 mg/dL Low HDL Cholesterol HDL >or= 60 mg/dL High HDL Cholesterol Serum or plasma cholesterol in VLDL measurement (mass/volume)Ordered By: Abby Denson on 03-05-2023 Cholesterol in VLDL [Mass/Vol] 20 mg/dL 5-40 [facility] Serum or plasma estradiol (E 2) measurement (mass/volume)Ordered By: Abby Denson on 03-05-2023 E2 [Mass/Vol] 30.1 pg/mL [facility] Comment on above: NORMAL REFERENCE RAN GES FEMALE FOLLICULAR 21.4 - 164.8 pg/mL MID-CYCLE PEAK 49.9 - 367.2 pg/mL LUTEAL 40.2 - 259.0 pg/mL POST-MENOPAUSAL ON MHT <11.0 - 462.1 pg/mL NOT ON MHT <11.0 - 58.3 pg/mL MALE <11.0 - 52.5 pg/mL NOTE:[employer] HAS CONFIRMED THE DRUG FULVETRANT (FASLODEX) MAY CAUSE FALSELY ELEVATED ESTRADIOL RESULTS WHEN USING THIS TEST METHOD. IF PATIENT IS TAKING FULVESTRANT AN ALTERNATIVE METHOD SHOULD BE USED TO DETERMINE ESTRADIOL CONCENTRATION. Serum or plasma low density lipoprotein (LDL) cholesterol measurement (mass/volume)Ordered By: Abby Denson on 03-05-2023 Cholesterol in LDL [Mass/Vol] 98 mg/dL 0-130 [facility] Whole blood hemoglobin A1c/t otal hemoglobin ratio (mass fraction)Ordered By: Abby Denson on 03-05-2023 HbA1c (Bld) [Mass fraction] 4.9 % 3.8-5.6 [facility] Comment on above: Normal < 5.7 % Predi abetic 5.7 - 6.4 % Diabetic >or= 6.5 % Please note range changes. Absolute lymphocyte countOrd ered By: Dr. Brown on 09-15-2022 Lymphocytes Auto (Unsp spec) [#/Vol] 1.75 10*3/uL 0.83-4.51 [facility] Basophil percentageOrdered B y: Dr. Brown on 09-15-2022 Basophils/100 WBC (Bld) 0.4 % 0-1 [facility] Bilirubin [Mass/Vol] 0.40 mg/dL 0.20-1.00 [facility] Comment on above: For patients on eltr ombopag therapy, use of Dimension [place] TBIL is not recommended. Chloride [Moles/Vol] 107 mmol/L 98-107 [facility] Eosinophils/100 WBC (Bld) 1.7 % 0-5 [facility] Glucose [Mass/Vol] 84 mg/dL 74-106 [facility] Neutrophils (Bld) [#/Vol] 4.5 10*3/uL 2.0-7.7 [facility] Neutrophils/100 WBC (Bld) 64.8 % 47-70 [facility] Potassium [Moles/Vol] 4.0 mmol/L 3.5-5.1 [facility] Protein [Mass/Vol] 7.2 g/dL 6.4-8.2 [facility] Sodium [Moles/Vol] 139 mmol/L 136-145 [facility] WBC (Bld) [#/Vol] 6.9 10*3/uL 4.4-11.0 [facility] Blood erythrocytes count (nu mber/volume)Ordered By: Dr. Brown on 09-15-2022 RBC (Bld) [#/Vol] 4.78 10*6/uL 4.2-5.4 [facility] Blood hemoglobin measurement (mass/volume)Ordered By: Dr. Brown on 09-15-2022 Hemoglobin (Bld) [Mass/Vol] 14.7 g/dL 12.0-15.0 [facility] Blood lymphocytes/100 leukoc ytesOrdered By: Dr. Brown on 09-15-2022 Lymphocytes/100 WBC (Bld) 25.3 % 19-41 [facility] Blood monocytes/100 leukocyt esOrdered By: Dr. Brown on 09-15-2022 Monocytes/100 WBC (Bld) 7.5 % 0-10 [facility] Blood platelet mean volumeOr dered By: Dr. Brown on 09-15-2022 Platelet mean volume (Bld) [Entitic vol] 11.6 fL 6.2-12.0 [facility] Determination of erythrocyte mean corpuscular volume (MCV)Ordered By: Dr. Brown on 09-15-2022 MCV (RBC) [Entitic vol] 93.5 fL 81-99 [facility] Hematocrit Auto (Bld) [Volum e fraction]Ordered By: Dr. Brown on 09-15-2022 Hematocrit (Bld) [Volume fraction] 44.7 % 37-47 [facility] - Chemistry and C hemistry - challengeOrdered By: Dr. Brown on 09-15-2022 ALP [Catalytic activity/Vol] 75 U/L 45-117 [facility] ALT [Catalytic activity/Vol] 26 U/L 13-56 [facility] CO2 [Moles/Vol] 27.0 mmol/L 21.0-32.0 [facility] Globulin (S) [Mass/Vol] 3.5 g/dL 2.2-4.2 [facility] Urea nitrogen/Creatinine [Mass ratio] 17.7 mg/mg 10-20 [facility] - Hematology and Cell countsOrdered By: Dr. Brown on 09-15-2022 Erythrocyte distribution width (RBC) [Entitic vol] 43.2 fL 35.1-43.9 [facility] Erythrocyte distribution width (RBC) [Ratio] 12.4 % 11.6-14.6 [facility] Immature granulocytes/100 WBC (Bld) 0.300 % 0.0-0.9 [facility] Comment on above: IG% - Immature Granu locytes (promyelocytes, myelocytes and metamyelocytes) > 1% indicates that a LEFT SHIFT is Present. MCH (RBC) [Entitic mass] 30.8 pg 27.0-32.0 [facility] Nucleated RBC/100 WBC (Bld) [Ratio] 0 % 0-5 [facility] MCHC Auto (RBC) [Mass/Vol]Or dered By: Dr. Brown on 09-15-2022 MCHC (RBC) [Mass/Vol] 32.9 g/dL 32-36 [facility] No Panel InformationOrdered By: Dr. Brown on 09-15-2022 Estimated GFR (MDRD) Amer 146 mL/min >60 [facility] Comment on above: GFR Calc Estimated GFR (MDRD) Non-Af Amer 121 mL/min >60 [facility] Comment on above: Non- GFR Calc Platelets bldOrdered By: Dr. Brown on 09-15-2022 Platelets (Bld) [#/Vol] 240 10*3/uL 150-450 [facility] Serum or plasma albumin laly urement (mass/volume)Ordered By: Dr. Brown on 09-15-2022 Albumin [Mass/Vol] 3.7 g/dL 3.2-5.0 [facility] Serum or plasma albumin/glob ulin mass ratioOrdered By: Dr. Brown on 09-15-2022 Albumin/Globulin [Mass ratio] 1.1 {ratio} 0.9-2.4 [facility] Serum or plasma calcium laly urement (mass/volume)Ordered By: Dr. Brown on 09-15-2022 Calcium [Mass/Vol] 8.8 mg/dL 8.5-10.1 [facility] Serum or plasma creatinine m easurement (mass/volume)Ordered By: Dr. Brown on 09-15-2022 Creatinine [Mass/Vol] 0.62 mg/dL 0.55-1.02 [facility] Comment on above: The validity of the calculated GFR & GFRAA in patients over 70 years has not been determined. Clinical correlation is essential. Serum or plasma urea nitroge n measurement (mass/volume)Ordered By: Dr. Brown on 09-15-2022 Urea nitrogen [Mass/Vol] 11 mg/dL 7-18 [facility] Thin prep Papanicolaou smear with manual screeningOrdered By: Dr. Brown on 09-15-2022 Thin prep Papanicolaou smear with manual screening 9 U/L 15-37 [facility] Thin prep Papanicolaou smear with manual screening 5 5-15 [facility] CNOVon 06-29-2022 CNOV Office Visit (UCWSTR ) JEN DIOR ([id number]) 1995 F Date Time Provider Department 06/29/22 12:30 PM [facility] During your visit today, we recorded the following information about you: Temperature Pulse Respiration Blood pressure 98 degrees 113/minute 18/minute 128/90 Weight Last Period 102.9 kg 06/25/22 Kassie Casanova APRN.CNP 06/29/2022 12:47 PM Signed ASSESSMENT/PLAN: 1. Tick bite of left thigh, [...] - Discussed expected course of illness Kassie Casanova APRN.CNP Avoiding Tick Bites How can I [...] it enlarges, resulting in a target or ?bull's-eye? appearance May appear on any area of [...] hands or feet Problems with short-term memory Kassie Casanova APRN.ANDRES 06/29/2022 1:32 PM Signed Subjective Trauma Pertinent negatives include no chills, fever, myalgias or rash. Jen Dior is a 27 year old female who presents with a tick bite on her left upper thigh. She felt some tugging on her skin and picked at the area and pulled a tick off. It was not engorged. She is unsure how long it was present. She has a dog and he occasionally brings tick (more content not included)... Normal [facility] - Chemistry and C hemistry - challengeon 03-01-2022 Free T4 [Mass/Vol] 0.76 ng/dL 0.76-1.46 [facility] Work Phone: No Panel Informationon 03-01 Thyroglobulin Antibody < 1.0 IU/mL 0.0-0.9 [facility] Work Phone: Comment on above: Thyroglobulin Antibo dy measured by [facility]Performed at: [facility] [address] [id number] Director: Orion Schafer PhD, Phone: [phone] Thyroid Stimulating Hormone (TSH) 0.89 uIU/mL 0.358-3.74 [facility] Work Phone: Serum or plasma thyroperoxid ase antibody assay (units/volume)on 03-01-2022 TPO Ab Qn 11 [IU]/mL 0-34 [facility] Work Phone: Vital Signs Date Time Vital Sign Value Performing Clinician Facility 06-10-2025 13:47-0400 Body height 167.[address] Spenser Brown MD Work Phone: [facility] 06-10-2025 13:47-0400 Body mass index (BMI) [Ratio] 36.8 kg/m2 Dr. Spenser Brown MD Work Phone: [facility] 06-10-2025 13:47-0400 Body weight 103.[address] Spenser Brown MD Work Phone: [facility] 06-10-2025 13:47-0400 Diastolic blood pressure 81 mm[Hg] Dr. Spenser Brown MD Work Phone: [facility] 06-10-2025 13:47-0400 Systolic blood pressure 137 mm[Hg] Dr. Spenser Brown MD Work Phone: [facility] 05-03-2025 10:50-0400 Body height 167.[address] Spenser Brown MD Work Phone: [facility] 05-03-2025 10:50-0400 Body mass index (BMI) [Ratio] 36.7 kg/m2 Dr. Spenser Brown MD Work Phone: [facility] 05-03-2025 10:50-0400 Body temperature 97.9 [degF] Dr. Spenser Brown MD Work Phone: [facility] 05-03-2025 10:50-0400 Body weight 103.[address] Spenser Brown MD Work Phone: [facility] 05-03-2025 10:50-0400 Diastolic blood pressure 68 mm[Hg] Dr. Spenser Brown MD Work Phone: [facility] 05-03-2025 10:50-0400 Heart rate 105 /min Dr. Spenser Brown MD Work Phone: [facility] 05-03-2025 10:50-0400 Respiratory rate 16 /min Dr. Spenser Brown MD Work Phone: [facility] 05-03-2025 10:50-0400 SaO2% (BldA) [Mass fraction] 98 % Dr. Spenser Brown MD Work Phone: [facility] 05-03-2025 10:50-0400 Systolic blood pressure 112 mm[Hg] Dr. Spenser Brown MD Work Phone: [facility] 03-21-2025 15:19-0400 Body height 167.[address] Spenser Brown MD Work Phone: [facility] 03-21-2025 15:19-0400 Body mass index (BMI) [Ratio] 35.9 kg/m2 Dr. Spenser Brown MD Work Phone: [facility] 03-21-2025 15:19-0400 Body temperature 98.4 [degF] Dr. Spenser Brown MD Work Phone: [facility] 03-21-2025 15:19-0400 Body weight 101.[address] Spenser Brown MD Work Phone: [facility] 03-21-2025 15:19-0400 Diastolic blood pressure 96 mm[Hg] Dr. Spenser Brown MD Work Phone: [facility] 03-21-2025 15:19-0400 Heart rate 101 /min Dr. Spenser Brown MD Work Phone: [facility] 03-21-2025 15:19-0400 Respiratory rate 16 /min Dr. Spenser Brown MD Work Phone: [facility] 03-21-2025 15:19-0400 SaO2% (BldA) [Mass fraction] 97 % Dr. Spenser Brown MD Work Phone: [facility] 03-21-2025 15:19-0400 Systolic blood pressure 128 mm[Hg] Dr. Spenser Brown MD Work Phone: [facility] 09-19-2024 15:04-0500 Body height 167.[address] Spenser Brown MD Work Phone: [facility] 09-19-2024 15:04-0500 Body mass index (BMI) [Ratio] 34.5 kg/m2 Dr. Spenser Brown MD Work Phone: [facility] 09-19-2024 15:04-0500 Body temperature 97.9 [degF] Dr. Spenser Brown MD Work Phone: [facility] 09-19-2024 15:04-0500 Body weight 97.[address] Spenser Brown MD Work Phone: [facility] 09-19-2024 15:04-0500 Diastolic blood pressure 66 mm[Hg] Dr. Spenser Brown MD Work Phone: [facility] 09-19-2024 15:04-0500 Heart rate 102 /min Dr. Spenser Brown MD Work Phone: [facility] 09-19-2024 15:04-0500 Respiratory rate 16 /min Dr. Spenser Brown MD Work Phone: [facility] 09-19-2024 15:04-0500 SaO2% (BldA) [Mass fraction] 98 % Dr. Spenser Brown MD Work Phone: [facility] 09-19-2024 15:04-0500 Systolic blood pressure 120 mm[Hg] Dr. Spenser Brown MD Work Phone: [facility] 09-11-2024 09:38-0500 Body mass index (BMI) [Ratio] 34.8 kg/m2 Dr. Spenser Brown MD Work Phone: [facility] 09-11-2024 09:38-0500 Body temperature 99.1 [degF] Dr. Spenser Brown MD Work Phone: [facility] 09-11-2024 09:38-0500 Body weight 97.[address] Spenser Brown MD Work Phone: [facility] 09-11-2024 09:38-0500 Diastolic blood pressure 70 mm[Hg] Dr. Spenser Brown MD Work Phone: [facility] 09-11-2024 09:38-0500 Heart rate 114 /min Dr. Spenser Brown MD Work Phone: [facility] 09-11-2024 09:38-0500 Respiratory rate 12 /min Dr. Spenser Brown MD Work Phone: [facility] 09-11-2024 09:38-0500 SaO2% (BldA) [Mass fraction] 98 % Dr. Spenser Brown MD Work Phone: [facility] 09-11-2024 09:38-0500 Systolic blood pressure 120 mm[Hg] Dr. Spenser Brown MD Work Phone: [facility] 10-05-2023 14:01-0500 Body height 167.[address] Spenser Brown Work Phone: [facility] 10-05-2023 14:01-0500 Body mass index (BMI) [Ratio] 36.3 kg/m2 Dr. Spenser Brown Work Phone: [facility] 10-05-2023 14:01-0500 Body temperature 98 [degF] Dr. Spenser Brown Work Phone: [facility] 10-05-2023 14:01-0500 Body weight 102.[address] Spenser Brown Work Phone: [facility] 10-05-2023 14:01-0500 Diastolic blood pressure 60 mm[Hg] Dr. Spenser Brown Work Phone: [facility] 10-05-2023 14:01-0500 Heart rate 88 /min Dr. Spenser Brown Work Phone: [facility] 10-05-2023 14:01-0500 Respiratory rate 16 /min Dr. Spenser Brown Work Phone: [facility] 10-05-2023 14:01-0500 SaO2% (BldA) [Mass fraction] 99 % Dr. Spenser Brown Work Phone: [facility] 10-05-2023 14:01-0500 Systolic blood pressure 122 mm[Hg] Dr. Spenser Brown Work Phone: [facility] 09-21-2023 13:38-0500 Body height 167.[address] Spenser Brown Work Phone: [facility] 09-21-2023 13:38-0500 Body mass index (BMI) [Ratio] 36.3 kg/m2 Dr. Spenser Brown Work Phone: [facility] 09-21-2023 13:38-0500 Body temperature 98.3 [degF] Dr. Spenser Brown Work Phone: [facility] 09-21-2023 13:38-0500 Body weight 102.[address] Spenser Brown Work Phone: [facility] 09-21-2023 13:38-0500 Diastolic blood pressure 86 mm[Hg] Dr. Spenser Brown Work Phone: [facility] 09-21-2023 13:38-0500 Heart rate 92 /min Dr. Spenser Brown Work Phone: [facility] 09-21-2023 13:38-0500 Respiratory rate 16 /min Dr. Spenser Brown Work Phone: [facility] 09-21-2023 13:38-0500 SaO2% (BldA) [Mass fraction] 98 % Dr. Spenser Brown Work Phone: [facility] 09-21-2023 13:38-0500 Systolic blood pressure 118 mm[Hg] Dr. Spenser Brown Work Phone: [facility] 08-22-2023 14:39-0500 Body height 167.[address] Spenser Brown Work Phone: [facility] 08-22-2023 09:09-0500 Body mass index (BMI) [Ratio] 36.2 kg/m2 Dr. Spenser Brown Work Phone: [facility] 08-22-2023 09:09-0500 Body weight 101.[address] Spenser Brown Work Phone: [facility] 08-22-2023 09:09-0500 Diastolic blood pressure 77 mm[Hg] Dr. Spenser Brown Work Phone: [facility] 08-22-2023 09:09-0500 Systolic blood pressure 127 mm[Hg] Dr. Spenser Brown Work Phone: [facility] 07-15-2023 16:06-0400 Body mass index (BMI) [Ratio] 37.1 kg/m2 Dr. Spenser Brown Work Phone: [facility] 07-15-2023 16:06-0400 Body weight 104.[address] Spenser Brown Work Phone: [facility] 07-15-2023 16:06-0400 Diastolic blood pressure 74 mm[Hg] Dr. Spenser Brown Work Phone: [facility] 07-15-2023 16:06-0400 Systolic blood pressure 118 mm[Hg] Dr. Spenser Brown Work Phone: [facility] 06-27-2023 08:54-0400 Body height 167.[address] Spenser Brown Work Phone: [facility] 06-22-2023 14:37-0400 Body mass index (BMI) [Ratio] 35.9 kg/m2 Dr. Spenser Brown Work Phone: [facility] 06-22-2023 14:37-0400 Body weight 101.[address] Spenser Brown Work Phone: [facility] 06-15-2023 14:15-0400 Body mass index (BMI) [Ratio] 36.3 kg/m2 Dr. Spenser Brown Work Phone: [facility] 06-15-2023 14:15-0400 Body temperature 97 [degF] Dr. Spenser Brown Work Phone: [facility] 06-15-2023 14:15-0400 Body weight 102.[address] Spenser Brown Work Phone: [facility] 06-15-2023 14:15-0400 Diastolic blood pressure 84 mm[Hg] Dr. Spenser Brown Work Phone: [facility] 06-15-2023 14:15-0400 Heart rate 83 /min Dr. Spenser Brown Work Phone: [facility] 06-15-2023 14:15-0400 Respiratory rate 18 /min Dr. Spenser Brown Work Phone: [facility] 06-15-2023 14:15-0400 SaO2% (BldA) [Mass fraction] 97 % Dr. Spenser Brown Work Phone: [facility] 06-15-2023 14:15-0400 Systolic blood pressure 118 mm[Hg] Dr. Spenser Brown Work Phone: [facility] 04-14-2023 14:48-0400 Body mass index (BMI) [Ratio] 36.5 kg/m2 Dr. Spenser Brown Work Phone: [facility] 04-14-2023 14:48-0400 Body weight 102.[address] Spenser Brown Work Phone: [facility] 04-14-2023 14:48-0400 Diastolic blood pressure 70 mm[Hg] Dr. Spenser Brown Work Phone: [facility] 04-14-2023 14:48-0400 Systolic blood pressure 123 mm[Hg] Dr. Spenser Brown Work Phone: [facility] 03-16-2023 11:03-0400 Body mass index (BMI) [Ratio] 35.9 kg/m2 Dr. Spenser Brown Work Phone: [facility] 03-16-2023 11:03-0400 Body temperature 98 [degF] Dr. Spenser Brown Work Phone: [facility] 03-16-2023 11:03-0400 Body weight 101.[address] Spenser Brown Work Phone: [facility] 03-16-2023 11:03-0400 Diastolic blood pressure 72 mm[Hg] Dr. Spenser Brown Work Phone: [facility] 03-16-2023 11:03-0400 Heart rate 78 /min Dr. Spenser Brown Work Phone: [facility] 03-16-2023 11:03-0400 Respiratory rate 14 /min Dr. Spenser Brown Work Phone: [facility] 03-16-2023 11:03-0400 SaO2% (BldA) [Mass fraction] 97 % Dr. Spenser Brown Work Phone: [facility] 03-16-2023 11:03-0400 Systolic blood pressure 106 mm[Hg] Dr. Spenser Brown Work Phone: [facility] 03-03-2023 15:37-0400 Body height 167.[address] Spenser Brown Work Phone: [facility] 03-03-2023 15:37-0400 Body mass index (BMI) [Ratio] 36 kg/m2 Dr. Spenser Brown Work Phone: [facility] 03-03-2023 15:37-0400 Body weight 101.[address] Spenser Brown Work Phone: [facility] 03-03-2023 15:37-0400 Diastolic blood pressure 84 mm[Hg] Dr. Spenser Brown Work Phone: [facility] 03-03-2023 15:37-0400 Systolic blood pressure 130 mm[Hg] Dr. Spenser Brown Work Phone: [facility] 09-15-2022 11:25-0500 Body temperature 97 [degF] Dr. Spenser Brown Work Phone: [facility] 09-15-2022 11:25-0500 Body weight 102.[address] Spenser Brown Work Phone: [facility] 09-15-2022 11:25-0500 Diastolic blood pressure 74 mm[Hg] Dr. Spenser Brown Work Phone: [facility] 09-15-2022 11:25-0500 Heart rate 90 /min Dr. Spenser Brown Work Phone: [facility] 09-15-2022 11:25-0500 Respiratory rate 18 /min Dr. Spenser Brown Work Phone: [facility] 09-15-2022 11:25-0500 SaO2% (BldA) [Mass fraction] 97 % Dr. Spenser Brown Work Phone: [facility] 09-15-2022 11:25-0500 Systolic blood pressure 118 mm[Hg] Dr. Spenser Brown Work Phone: [facility] 07-31-2022 13:40-0500 Body temperature 99.3 [degF] Dr. Spenser Brown Work Phone: [facility] 07-31-2022 13:40-0500 Diastolic blood pressure 82 mm[Hg] Dr. Spenser Brown Work Phone: [facility] 07-31-2022 13:40-0500 Heart rate 80 /min Dr. Spenser Brown Work Phone: [facility] 07-31-2022 13:40-0500 Respiratory rate 16 /min Dr. Spenser Brown Work Phone: [facility] 07-31-2022 13:40-0500 SaO2% (BldA) [Mass fraction] 98 % Dr. Spenser Brown Work Phone: [facility] 07-31-2022 13:40-0500 Systolic blood pressure 112 mm[Hg] Dr. Spenser Brown Work Phone: [facility] 06-29-2022 12:32-0400 Body temperature 98.01 [degF] Kassie Praisler-[employer] Work Phone: [facility] 06-29-2022 12:32-0400 Body weight 102.88 kg Kassie Praisler-Wood [employer] Work Phone: [facility] 06-29-2022 12:32-0400 Diastolic blood pressure 90 mm[Hg] Kassie Praisler-[employer] Work Phone: [facility] 06-29-2022 12:32-0400 Heart rate 113 /min Kassie Praisler-Wood [employer] Work Phone: [facility] 06-29-2022 12:32-0400 Respiratory rate 18 /min Kassie Praisler-[employer] Work Phone: [facility] 06-29-2022 12:32-0400 SaO2% (BldA) [Mass fraction] 98 % Kassie Praisler-[employer] Work Phone: [facility] 06-29-2022 12:32-0400 Systolic blood pressure 128 mm[Hg] Kassie Praisler-[employer] Work Phone: [facility] 06-16-2022 11:06-0400 Body height 167.[address] Spenser Brown Work Phone: [facility] 06-16-2022 11:06-0400 Body mass index (BMI) [Ratio] 36.1 kg/m2 Dr. Spenser Brown Work Phone: [facility] 06-16-2022 11:06-0400 Body temperature 98 [degF] Dr. Spenser Brown Work Phone: [facility] 06-16-2022 11:06-0400 Body weight 101.[address] Spenser Brown Work Phone: [facility] 06-16-2022 11:06-0400 Diastolic blood pressure 82 mm[Hg] Dr. Spenser Brown Work Phone: [facility] 06-16-2022 11:06-0400 Heart rate 92 /min Dr. Spenser Brown Work Phone: [facility] 06-16-2022 11:06-0400 Respiratory rate 16 /min Dr. Spenser Brown Work Phone: [facility] 06-16-2022 11:06-0400 SaO2% (BldA) [Mass fraction] 98 % Dr. Spenser Brown Work Phone: [facility] 06-16-2022 11:06-0400 Systolic blood pressure 120 mm[Hg] Dr. Spenser Brown Work Phone: [facility] 03-01-2022 10:30-0400 Body height 167.[address] Spenser Brown Work Phone: [facility] Work Phone: 03-01-2022 10:30-0400 Body mass index (BMI) [Ratio] 37.5 kg/m2 Dr. Spenser Brown Work Phone: [facility] Work Phone: 12-14-2021 14:05-0400 Body mass index (BMI) [Ratio] 36.5 kg/m2 Dr. Spenser Brown Work Phone: [facility] Work Phone: 12-14-2021 14:05-0400 Body temperature 97.6 [degF] Dr. Spenser Brown Work Phone: [facility] Work Phone: 12-14-2021 14:05-0400 Body weight 102.[address] Spenser Brown Work Phone: [facility] Work Phone: 12-14-2021 14:05-0400 Diastolic blood pressure 62 mm[Hg] Dr. Spenser Brown Work Phone: [facility] Work Phone: 12-14-2021 14:05-0400 Heart rate 92 /min Dr. Spenser Brown Work Phone: [facility] Work Phone: 12-14-2021 14:05-0400 Respiratory rate 18 /min Dr. Spenser Brown Work Phone: [facility] Work Phone: 12-14-2021 14:05-0400 SaO2% (BldA) [Mass fraction] 98 % Dr. Spenser Brown Work Phone: [facility] Work Phone: 12-14-2021 14:05-0400 Systolic blood pressure 102 mm[Hg] Dr. Spenser Brown Work Phone: [facility] Work Phone: Encounters Encounter Date Encounter Type Care Provider Facility Start: 06-10-2025 End: 06-10-[address] Abby Densno MD -[facility] Work Phone: Start: 06-10-2025 End: 06-10-2025 ambulatory Spenser [place] [place]: 05-03-2025 End: 05-03-[address] Spenser Brown MD -[facility] Work Phone: Start: 05-03-2025 End: 05-03-[address] Spenser Brown MD Work Phone: -[facility] Start: 03-21-2025 End: 03-21-[address] Spenser Brown MD Work Phone: -[facility] Start: 03-21-2025 End: 03-21-[address] Spenser Bronw MD -[facility] Start: 03-21-2025 End: 03-21-[address] Spenser Brown MD -[facility] Work Phone: Start: 03-21-2025 End: 03-21-[address] Spenser Brown MD Work Phone: -[facility] Start: 03-21-2025 End: 03-21-2025 ambulatory Spenser Brown Facility:[facility] Start: 12-26-2024 End: 12-26-[address] Spenser Brown MD Work Phone: [facility] Work Phone: Start: 12-26-2024 End: 12-26-[address] Enrrique Dewitt MD -Physical Therapy Work Phone: Start: 09-19-2024 End: 09-19-[address] Spenser Brown MD -[facility] Work Phone: Start: 09-19-2024 End: 09-19-2024 ambulatory Spenser [place] [place]: 09-11-2024 End: 09-11-2024 Patient encounter procedure Shadi DELEON -[facility] Work Phone: Start: 09-11-2024 End: 09-11-2024 ambulatory Shadi DELEON [place] Start: 08-24-2024 End: 08-24-2024 ambulatory Spenser Brown [place] Start: 08-24-2024 End: 08-24-2024 ambulatory Abbyravinder Denson Facility:[facility] Start: 08-15-2024 End: 08-15-2024 ambulatory Lillieaudreyjenyolga Brown [place] Start: 08-15-2024 End: 08-15-2024 [facility] Start: 07-25-2024 End: 07-25-2024 ambulatory Abby Denson Facility:[facility] Start: 10-25-2023 End: 10-25-[address] Spenser Brown Work Phone: [facility] Work Phone: Start: 10-25-2023 End: 10-25-[address] Spenser Brown Work Phone: [facility]-Pulmonary Services/Neurology Work Phone: Start: 10-05-2023 End: 10-05-[address] Spenser Brown Work Phone: [facility] Work Phone: Start: 09-21-2023 End: 09-21-[address] Spenser Brown Work Phone: [facility] Work Phone: Start: 09-21-2023 End: 09-21-[address] Spenser Brown Work Phone: [facility] Work Phone: Start: 08-24-[address] Johana Brown Work Phone: [facility]-Physical Therapy Work Phone: Start: 08-22-2023 End: 08-22-[address] Spenser Brown Work Phone: [facility] Work Phone: Start: 08-22-2023 End: 08-22-[address] Spenser Brown Work Phone: [facility]-Laboratory, Specimen Work Phone: Start: 08-22-2023 End: 08-22-[address] Spenser Brown Work Phone: [facility] Work Phone: Start: 08-08-2023 End: 08-08-[address] Spenser Brown Work Phone: [facility] Work Phone: Start: 07-15-2023 End: 07-15-[address] Spenser Brown Work Phone: [facility] Work Phone: Start: 06-28-2023 End: 06-28-[address] Spenser Brown Work Phone: [facility] Work Phone: Start: 06-28-2023 End: 06-28-[address] Spenser Brown Work Phone: [facility]-Laboratory, Specimen Work Phone: Start: 06-27-2023 End: 06-27-[address] Spenser Brown Work Phone: [facility] Work Phone: Start: 06-22-2023 End: 06-22-[address] Spenser Brown Work Phone: [facility] Work Phone: Start: 06-15-2023 End: 06-15-[address] Spenser Brown Work Phone: [facility] Work Phone: Start: 05-20-2023 End: 05-20-[address] Spenser Brown Work Phone: [facility] Work Phone: Start: 04-20-2023 End: 04-20-[address] Spenser Brown Work Phone: [facility] Work Phone: Start: 04-14-2023 End: 04-14-[address] Spenser Brown Work Phone: [facility] Work Phone: Start: 03-16-2023 End: 03-16-[address] Spenser Brown Work Phone: [facility] Work Phone: Start: 03-05-2023 End: 03-05-[address] Spenser Brown Work Phone: [facility] Work Phone: Start: 03-05-2023 End: 03-05-[address] Spenser Brown Work Phone: [facility]-Laboratory Work Phone: Start: 03-03-2023 End: 03-03-[address] Spenser Brown Work Phone: [facility] Work Phone: Start: 09-29-2022 End: 09-29-2022 ambulatory YEE BUSTAMANTE Facility:[facility] Start: 09-15-2022 End: 09-15-[address] Spenser Brown Work Phone: [facility] Work Phone: Start: 09-15-2022 End: 09-15-[address] Spenser Brown Work Phone: [facility] Start: 07-31-2022 End: 07-31-[address] Spenser Brown Work Phone: [facility] Start: 06-29-2022 End: 06-29-2022 ambulatory [facility] Facility:[facility] Start: 06-29-2022 End: 06-29-2022 Patient encounter procedure Kassie Casanova APRN.CNP Work Phone: [facility] Comment on above: Tick bite of left th igh, initial encounter (Primary Dx) Start: 06-16-2022 End: 06-16-[address] Spenser Brown Work Phone: [facility] Start: 03-11-2022 End: 03-11-[address] Spenser Brown Work Phone: [facility] Start: 03-01-2022 End: 03-01-[address] Spenser Brown Work Phone: [facility] Start: 12-14-2021 End: 12-14-[address] Spenser Brown Work Phone: [facility] Procedures Date Procedure Procedure Detail Performing Clinician Start: 03-21-2025 Vitamin D, 25-hydrox y measurement Dr. Spenser Brown MD Work Phone: Comment on above: Vitamin D StatusDefi ciency: <20 ng/mL (50nmol/L)Insufficiency: 20-30 ng/mL (50-75 nmol/L)Sufficiency: 30-100 ng/mL (75-250 nmol/L)Toxicity: >100 ng/mL (>250 nmol/L) Start: 08-22-2023 Cytopathology proced ure, preparation of smear, genital source Dr. Spenser Brwon Work Phone: Start: 08-22-2023 Investigation of transfusion reaction Dr. Spenser Brown Work Phone: Start: 06-22-2023 Radiologic examinati on of knee Dr. Spenser Brown Work Phone: Start: 04-20-2023 US scan of thyroid Dr. Spenser Brown Work Phone: Start: 03-11-[address] Mihir Brown Work Phone: Start: 03-11-[address] Spenser Brown Work Phone: Start: 03-11-2022 US scan of thyroid Dr. Spenser Brown Work Phone: Plan of Treatment Date Care Activity Detail Author Start: 06-10-2025 Follicle stimulating hormone measurement [facility] Start: 06-10-2025 [facility] Start: 03-21-2025 CBC W Auto Differential panel - Blood [facility] Start: 03-21-2025 Comprehensive metabolic 2000 panel - Serum or Plasma [facility] Start: 03-21-2025 T4 free measurement [facility] Start: 03-21-2025 Thyroid stimulating hormone measurement [facility] Start: 03-21-2025 Vitamin B12 measurement [facility] Start: 03-21-2025 Vitamin D, 25-hydroxy measurement [facility] Start: 06-22-2023 Patient referral [facility] Work Phone: Start: 06-15-2023 Patient referral [facility] Work Phone: Start: 03-16-2023 Patient referral [facility] Work Phone: Start: 03-05-2023 17-Hydroxyprogesterone [Mass/volume] in Serum or Plasma [facility] Start: 03-05-2023 Dehydroepiandrosterone sulfate (DHEA-S) [Mass/volume] in Serum or Plasma [facility] Start: 03-05-2023 Testosterone Free [Mass/volume] in Serum or Plasma [facility] Start: 03-05-2023 Thyroperoxidase Ab [Units/volume] in Serum or Plasma [facility] Start: 06-16-2022 Patient referral [facility] Work Phone: Start: 05-13-2022 Influenza vaccination INFLUENZA (#1) [facility] Start: 09-12-2021 DEPRESSION ASSESSMENT DEPRESSION ASSESSMENT [facility] Start: 06-04-2021 COVID-19 VACCINE (3 - Booster for Moderna series) COVID-19 VACCINE (3 - Booster for Moderna series) [facility] Start: 12-18-2018 Urine microalbumin profile DTAP,TDAP,TD (2 - Td or Tdap) [facility] Start: 07-14-2018 PAP TESTING PAP TESTING [facility] Start: 01-19-2012 HEPATITIS C SCREENING HEPATITIS C SCREENING [facility] Start: 01-19-2012 HIV SCREENING HIV SCREENING [facility] Start: 1994 HEPATITIS B (1 of 3 - 3-dose series) HEPATITIS B (1 of 3 - 3-dose series) [facility] 17-Hydroxyprogestero ne [Mass/volume] in Serum or Plasma [facility] Alanine aminotransfe rase [Enzymatic activity/volume] in Serum or Plasma [facility] Albumin [Mass/volume ] in Serum or Plasma [facility] Alkaline phosphatase [Enzymatic activity/volume] in Serum or Plasma [facility] Anion gap in Serum or Plasma [facility] Bilirubin, total measurement [facility] BUN/Creatinine ratio [facility] Calcium [Mass/volume ] in Serum or Plasma [facility] Carbon dioxide, tota l [Moles/volume] in Central venous blood [facility] Creatinine [Mass/vol ume] in Serum or Plasma [facility] Dehydroepiandrostero ne sulfate (DHEA-S) [Mass/volume] in Serum or Plasma [facility] Erythrocyte mean cor puscular volume determination [facility] Estradiol (E2) [Mass /volume] in Serum or Plasma [facility] Glucose [Mass/volume ] in Serum or Plasma [facility] Hematocrit [Volume F raction] of Blood [facility] Hemoglobin [Mass/vol ume] in Blood [facility] Leukocytes [#/volume] in Blood [facility] Mean corpuscular hem oglobin concentration determination [facility] Mean corpuscular hem oglobin determination [facility] Measurement of renal function [facility] Neutrophil count [facility] Neutrophil percent d ifferential count [facility] Patient referral [facility] Work Phone: Platelets [#/volume] in Blood [facility] Potassium measurement [facility] Red blood cell count [facility] Red cell distributio n width determination [facility] Serum chloride measurement [facility] Sodium measurement [facility] Testosterone Free [M ass/volume] in Serum or Plasma [facility] Total protein measurement [facility] Urea nitrogen [Mass/ volume] in Serum or Plasma [facility] [facility] Work Phone: US Pelvis transvaginal [facility] Work Phone: US Thyroid gland [facility] Work Phone: US Thyroid gland [facility] US Thyroid gland [facility] Immunizations Immunization Date Immunization Notes Care Provider Fa virgen 04-09-2021 Covid (Moderna) Dr. Shant Brown MD Work Phone: [facility] 03-12-2021 Covid (Modernmike) Dr. Shant Brown Work Phone: [facility] 01-10-2009 hepatitis A vaccine, unspecified formulation Kassie Casanova APRN.TOP EDGE BEVELER Work Phone: [facility] Work Phone: 12-18-2008 tetanus toxoid, redu helene diphtheria toxoid, and acellular pertussis vaccine, adsorbed Kassie Casanova APRN.TOP EDGE BEVELER Work Phone: [facility] Work Phone: Payers Date Payer Category Payer Self-pay [id number] 2022 Unknown [id number] 2020 Unknown [id number] 2020 Unknown [employer] BLUE CARD PPO OOS [id number] 2020-Present [phone] [id number] [place] [address] PPO [id number] Unknown [id number] Unknown [id number] Unknown [id number] Unknown [id number] Unknown [id number] Unknown [id number] Unknown [id number] Unknown [id number] Unknown [id number] Unknown [id number] Unknown [id number] Unknown [id number] Unknown [id number] Unknown . Social History Date Type Detail Facility Start: 03-01-2022 End: 08-22-2023 Tobacco smoking status NHIS Unknown if ever smoked [facility] Start: 07-27-2019 None [facility] Start: 07-27-2019 Spouse/ Signif icant Other [facility] Start: 1995 Sex Assigned At Female W [facility] Start: 07-14-2015 End: 10-05-2023 Tobacco smoking status NCIS Never smoked tobacco [facility] Start: 07-14-2015 Tobacco use and exposure Smokeless tobacco non-user [facility] Start: 06-29-2022 Alcohol intake Current drinke r of alcohol (finding) [facility] Start: 07-14-2015 Alcohol Comment rare [facility] Start: 1995 Sex Assigned At Not on file [facility] Start: 06-19-2022 End: 06-29-2022 Exposure to SARS-CoV-2 (event) Not sure [facility] Start: 12-27-2024 Sex Female (finding) [facility] Sex Female [facility] Clinical Notes 06-29-2022 to 06-10-2025 Note Date & Type Note Facility 06-10-2025 Progress note [facility] 06-10-2025 Progress note Note Date/Time June 10, 2025 2:23pm [facility] [address], [address] [place] [address] OFFICE VISIT Date of Service: 06/10/25 MR#: [id number] Acct: [id number] Name: JEN DIOR Rep #: [id number] : 1995 Provider: Dr. Grant Denson MD Age/Sex: 30/F Location: [facility] Status: Signed Intake Vital Signs 05/03/25 10:50 06/10/25 13:47 Height 5 ft 6 in 5 ft 6 in Weight: 227 lb 8 oz 228 lb 8 oz BMI 36.7 36.8 BP 112/68 137/81 H Blood Pressure Location Lt brachial Position Sitting Respiration 16 Pulse 105 H Pulse Source Monitor Temp 97.9 F Pulse Oximetry (%) 98 Oxygen Delivery Method room air Intake Visit Reasons: Hot flashes/hormone changes Composite Bond Worker Required: No Is patient in pain?: No Allergies amoxicillin Allergy (Verified 06/10/25 13:49) Anaphylaxis codeine Allergy (Verified 06/10/25 13:49) Anaphylaxis Medications ?Medication ?Instructions ?Recorded ?Confirmed ?Type cetirizine 10 mg capsule (Zyrtec) 10 mg PO DAILY 07/0706/10/25 History lactobacillus combination no.4 3 3,000 mmu cells PO DA RACHEL 04/14/23 06/10/25 History billion cell capsule (Probiotic) nystatin 100,000 unit/gram topical 1 applic topical BI D PRN 09/21/23 06/10/25 History ointment cyclobenzaprine 10 mg tablet 10 mg PO TID PRN muscle s pasm #90 07/31/24 06/10/25 Rx tabs mecobalamin (vitamin B12) 1,000 1,000 mcg PO QDAY 1201/0306/10/25 History mcg chewable tablet drospirenone 3 mg-ethinyl 1 tab PO QDAY #84 tabs 08/2406/10/25 Rx estradiol 0.02 mg tablet (CHIN (28)) meloxicam 15 mg tablet 15 mg PO DAILY PRN pain #90 tabs 10/22/24 06/10/25 Rx gabapentin 300 mg capsule 300 mg PO TID PRN Radiculopa thy 02/11/25 06/10/25 Rx #90 caps cariprazine 1.5 mg capsule 1.5 mg PO QDAY #30 caps 07/0606/10/25 Rx (Vraylar) bupropion HCl 150 mg 24 hr tablet, 150 mg PO QAM #90 t abs 04/01/25 06/10/25 Rx extended release (Wellbutrin XL) buspirone 10 mg tablet 10 mg PO BID anxiety #180 ta bs 06/04/25 06/10/25 Rx Is last menstrual period known: No Post menopausal: No Patient : No : No Control Method: ocp PFSH Medical History (Updated 06/10/25 @ 14:[address] Abby Denson MD) Change in skin mole Pre-syncope Thyromegaly Neuropathy Right knee pain Flu vaccine need Hypersomnolence Lumbar radiculopathy, chronic Chronic nasal congestion Chronic diarrhea Panic attacks Thyroid nodule Constipation Obesity (BMI 30-39.9) Seasonal allergies Migraine with aura and without status migrainosus Depression with anxiety Seasonal allergies Back pain Diarrhea Severe headache Fatigue Surgical History History of back surgery H/O breast biopsy Family History Grandmother Breast cancer Arthritis Diabetes High cholesterol Mother Asthma Seizures Father Migraines Hypertension Social History Smoking Status: Never smoker alcohol intake: current Alcohol type: wine details: social substance use type: does not use caffeine: Yes what type of physical activity do you participate in: walking seatbelt use: always do you feel safe at home: Yes additional social history: [employer] Patient works for [employer] HPI Hot flashes/hormone changes Details: The patient is a 30-year-old female presenting with concerns of hot flashes and excessive sweating. The patient reports experiencing hot flashes for several years, initially thought to be a side effect of escitalopram, which she has since discontinued. Despite stopping escitalopram and starting new medications, including Vraylar, the symptoms persist, occurring almost daily, with episodes lasting until she uses cooling interventions such as air conditioning or ice packs. The patient has been on a continuous oral contraceptive pill but reports having only one menstrual period during this time. She is concerned about the possibility of premature ovarian failure, as she is experiencing symptoms consistent with menopause, despite her young age. The patient has a history of depression and anxiety, which have been challengingto manage despite therapy and medication adjustments. She is currently on multiple medications, including Wellbutrin and Vraylar, and is considering consulting a psychiatrist for further evaluation. The patient also reports chronic diarrhea, which has increased in frequency overthe past month, and occasional dizziness over the last few weeks. Attestation: Documentation on this patient encounter was supported using ambient scribe technology/ voice AI technology. The patient consented to recording for the purpose of documenting the encounter. Provider reviewed content of the generatednote prior to signature. History 0 Elective abortions Hx Para Spontaneous abortions Hx # Term Pregnancies Ectopic pregnancies Hx # Pregnancies Multiple births # of living children ROS ROS Narrative - General: Reports hot flashes and excessive sweating, especially at night. - Neurological: Denies nausea, palpitations, or chest pain during episodes; reports occasional dizziness. - Gastrointestinal: Reports chronic diarrhea with increased frequency recently. - Genitourinary: Reports absence of menstruation while on continuous oral contraceptive pill. Exam Const General: cooperative, healthy appearing, comfortable, no acute distress and welldeveloped Orientation: alert HENMT Head: normal to inspection and normocephalic Ears: hearing grossly normal bilaterally and external ears normal Nose: external nose normal and nares normal Face and sinus: normal facial exam Neck Neck: normal visual inspection, no lymphadenopathy and trachea midline Thyroid: thyroid normal Resp Effort & Inspection: normal respiratory effort Musc Other: gross motor intact no deficits, full bilateral strength Skin General: no rashes or lesions noted Neuro Motor: muscle tone normal throughout Coding Level of Care Code Off vis,est,level 4 Diagnoses Oligomenorrhea N91.5 Climacteric N95.1 Assessment and Plan Assessment and Plan (1) Oligomenorrhea: Status: Acute (2) Climacteric: Status: Acute Comment: two weeks off ocp and then check labs, if normal change to higher dose estrogen ocp. if POF refer to I Plan Assessment and Plan 30-year-old female with a history of depression and anxiety presenting with hot flashes and excessive sweating. The patient's hot flashes and excessive sweating are persistent despite medication changes, suggesting a possible hormonal imbalance or premature ovarian failure. Given her age, premature ovarian failure is a concern, and further hormonal evaluation is warranted. The patient's mental health conditions, including depression and anxiety, are being managed with medications and therapy, though she is considering further psychiatric evaluation. The increase in diarrhea frequency and recent dizziness episodes may require further investigation to rule out other underlying conditions. 1. Hot Flashes The plan includes discontinuing the oral contraceptive pill for two weeks to allow for accurate hormonal evaluation. Backup contraception should be used during this period. Hormone levels will be checked to assess for premature ovarian failure. 2. Premature Ovarian Failure If premature ovarian failure is confirmed, referral to a caul dresser for further evaluation and management will be considered. Genetic testing and a comprehensive workup may be necessary to determine the underlying cause. 3. Depression The patient is advised to continue current medications and therapy. Consideration of psychiatric evaluation for further management is recommended. 4. Anxiety The patient is advised to continue current medications and therapy. Consideration of psychiatric evaluation for further management is recommended. 5. Diarrhea Further evaluation may be necessary if symptoms persist or worsen. Patient Instructions: During the visit, we discussed the possibility of premature ovarian failure and the need for hormonal evaluation by discontinuing the oral contraceptive pill temporarily. I explained the importance of using backup contraception during this period and the potential need for referral to a caul dresser if premature ovarian failure is confirmed. We also reviewed the patient's mental health management, emphasizing the potential benefits of psychiatric evaluation for optimizing treatment. 06/10/25 1423 <Electronically signed by Abby he MD> Date _ Abby Denson MD Cosigner Signature: Date (if applicable) CC: ~ [facility] Work Phone: 1(504) 172-714407-10-2025 Evaluation note* Diagnosis Onset Date Resolution Status Admit Date Panic attacks acute March 21, 2025 2:57pm Depression with anxiety chronic 2024 2:57pm [facility] Work Phone: 1(759) 466-847207-10-2025 Evaluation note* Diagnosis Onset Date Resolution Status Admit Date Panic attacks acute March 21, 2025 2:57pm Depression with anxiety chronic J 2024 2:57pm Change in skin mole acute Augus t 2024 10:42am Depression with anxiety chronic A ugust 2024 10:42am Climacteric May, acute Septembe r 2024 1:43pm Oligomenorrhea acute June 10, 2025 1:43pm [facility] Work Phone: 1(375) 632-630804-16-2025 Discharge summary Author Arnol Ritter [facility] Note Date/Time December 26, 2024 7:0 0[facility] [address] [place] [address] / REHABILITATION SERVICES DISCHARGE SUMMARY MR#: [id number] Acct: [id number] Name: JEN DIOR Rep #: [id number] : 1995 29 From: Arnol Daly Referring Dr.: Dr. Enrrique Dewitt MD Status: REG RCR Insurance: [employer] SELF PAY INSURANCE Discharge Summary D/C summary: It has been my pleasure to treat JEN DIOR referred by Dr. Enrrique Dewitt MD, with the diagnosis of Strain of muscle fascia and tendon, spondylosis/dorsalgia for a total of 20 visit(s). Discharge Date: 12/26/24 Please see the following information for a summary of their discharge status. Subjective Subjective: Pt. reports being 75% better overall. Pt. reports having some good and bad days, but the good days are more often. Pt. does not have as much in herlegs, when she does get it, it is in her back. Pain back pain: Pain Intensity (Out of 10): 1 R leg painundefined: Pain Intensity (Out of 10): 0 Overall Improvement % Improvement: 75 Objective Objective/Function: Lumbar ROM: flexion full no issues, ext min loss NE, SB fullmotion NE bilat, rotation full motion NE. Pt. has good HS length. MMT: full strength throughout BLEs. Pt. has fair- core strength. No distal symptoms. Pt. is independent with her current HEP. Pt. is to continue with her HEP on her own at this point in time. Goals Goal 1:: I HEP Goal 2:: Abolish R leg pain with sitting and ADL's Goal Progress: Goal Met Goal 3:: Be able to get through her day without having to take pain medication for her back and leg pain Goal Progress: Goal Met Goal 4:: Centralize LBP Goal Progress: Goal Met Goal 5:: LTG: Pt. to have increased lumbar ROM to full without increase in symptoms. Goal Progress: Goal Met Plan Plan: Pt. to be DC to HEP at this point in time. D/C Information d/c sentence: If there are questions or concerns regarding this patient's physical therapy, please feel free to call me at [phone]. Thank you for the referral of thispatient. Sincerely, HARVINDER FultonT Balance/Gait/Functional tests Balance/Special Test Scores Oswestry Low Back Score: 7 Improvement % Improvement: 75 <Electronically signed by Arnol Ritter DPT> 12/26/24 1743 CC: Dr. Spenser Brown MD; Dr. Enrrique Dewitt MD ~ CLS Signed [facility] Work Phone: 1(747) 213-147504-16-2025 Discharge summary [facility] [address] [place] [address] / REHABILITATION SERVICES DISCHARGE SUMMARY MR#: [id number] Acct: [id number] Name: JEN DIOR Rep #: [id number] : 1995 29 From: Arnol BLANTON T Referring Dr.: Dr. Enrrique Dewitt MD Status: REG RCR Insurance: [employer] SELF PAY INSURANCE Discharge Summary D/C summary: It has been my pleasure to treat JEN DIOR referred by Dr. Enrrique Dewitt MD, with the diagnosis of Strain of muscle fascia and tendon, spondylosis/dorsalgia for a total of 20 visit(s). Discharge Date: 12/26/24 Please see the following information for a summary of their discharge status. Subjective Subjective: Pt. reports being 75% better overall. Pt. reports having some good and bad days, but the good days are more often. Pt. does not have as much in herlegs, when she does get it, it is in herback. Pain back pain: Pain Intensity (Out of 10): 1 R leg painundefined: Pain Intensity (Out of 10): 0 Overall Improvement % Improvement: 75 Objective Objective/Function: Lumbar ROM: flexion full no issues, ext min loss NE, SB fullmotion NE bilat, rotation full motion NE. Pt. has good HS length. MMT: full strength throughout BLEs. Pt. has fair- core strength. No distal symptoms. Pt. is independent with her current HEP. Pt. is to continue with her HEP on her own at this point in time. Goals Goal 1:: I HEP Goal 2:: Abolish R leg pain with sitting and ADL's Goal Progress: Goal Met Goal 3:: Be able to get through her day without having to take pain medication for her back and legpain Goal Progress: Goal Met Goal 4:: Centralize LBP Goal Progress: Goal Met Goal 5:: LTG: Pt. to have increased lumbar ROM to full without increase in symptoms. Goal Progress: Goal Met Plan Plan: Pt. to be DC to HEP at this point in time. D/C Information d/c sentence: If there are questions or concerns regarding this patient's physical therapy, please feel free to call me at [phone]. Thank you for the referral of thispatient. Sincerely, Arnol Ritter, DPT Balance/Gait/Functional tests Balance/Special Test Scores Oswestry Low Back Score: 7 Improvement % Improvement: 75 12/26/24 1526 CC: Dr. Spenser Brown MD; Dr. Enrrique Dewitt MD ~ CLS Signed [facility]01-08-2025 Evaluation note* Diagnosis Onset Date Resolution Status Admit Date Pre-syncope acute September 19, 2024 2:58pm Depression with anxiety chronic J anuary 2024 2:58pm Lumbar radiculopathy, chronic chroni c September 19, 2024 2:58pm [facility] Work Phone: 1(718) 467-487010-18-2022 NoteHNO ID: [id number] Author: Kassie Casanova APRN.TOP EDGE BEVELER Service: ? Author Type: Nurse Practitioner Type: Progress Notes Filed: 06/29/2022 1:32 PM Note Text: Subjective Trauma Pertinent negatives include no chills, fever, myalgias or rash. Jen Dior is a 27 year old female who [...] 08/28/2015 ALLERGIES Amoxicillin and Codeine MEDICATIONS levonorgestrel (VIANEY INTRAUTERINE) by INTRAUTERINE route. escitalopram oxalate (LEXAPRO) [...] - Discussed expected course of illness Kassie Casanova [facility] History of Present illness Narrative* Kassie Casanova APRN.TOP EDGE BEVELER - 06/29/2022 12:55 PM EDT Images from the original note were not included. Subjective Trauma Pertinent negatives include no chills, fever, myalgias or rash. Jen Dior is a 27 year old female who [...] was bitten, the area is tender. She hasnot had a fever. Review of Systems Constitutional: [...] 08/28/2015 ALLERGIES Amoxicillin and Codeine MEDICATIONS levonorgestrel (VIANEY INTRAUTERINE) by INTRAUTERINE route. escitalopram oxalate (LEXAPRO) [...] IUD Inserted in office (Patient not taking: Reportedon 06/29/2022) FAMILY HISTORY Problem Relation Age of [...] - Discussed expected course of illness Kassie Casanova APRN.CNP [facility] Instructions* Patient Instructions* Kassie Casanova APRN.CNP - 06/29/2022 12:47 PM EDT ASSESSMENT/PLAN: [...] - Discussed expected course of illness Kassie Casanova APRN.ANDRES Avoiding Tick Bites How can I avoid tick bites? If you are planning an outdoor activity, especially those in a heavily wooded area, it is importantto follow a few simple precautions to protect yourself from tick bites. Wear long sleeved, light-colored clothing, with tightly woven fabric. 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 Obesity (BMI 30-39.9) chroni c Arthritis resolved Acute pelvic pain, female ac platinum Thyromegaly acute Encounter for routine gynecological examination noneactive [facility] Work Phone: Evaluation note* Diagnosis Tick bite of left thigh, initial encounter- Primary [facility]* Diagnosis Onset Date Resolution Status Flu vaccine need acute Chronic diarrhea chronic Chronic nasal congestion chr onic 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 Hypersomnolence chronic Lumbar radiculopathy, chronic chronic Contact dermatitis and other eczema, due to unspecified cause acute Rash noneactive Chronic diarrhea chronic Chronic nasal congestion chr onic 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 Lumbar radiculopathy, chronic chronic [facility] Work Phone: Evaluation note* Diagnosis Onset Date Resolution Status BMI 36.0-36.9,adult acute Other obesity acute Polycystic ovarian syndrome acute Thyroid nodule acute Thyromegaly acute Encounter for routine gynecological examination noneactive [facility] Work Phone: Evaluation note* Diagnosis Onset Date Resolution Status Polycystic ovarian syndrome acute 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 Change in skin mole resolved BMI 36.0-36.9,adult acute Other obesity acute Polycystic ovarian syndrome acute Thyroid nodule acute 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 Lumbar radiculopathy, chronic chronic Right knee pain chronic Patellofemoral arthrosis acu te Thyroid nodule acute [facility] Work Phone: Evaluation note* Diagnosis Onset Date Resolution Status 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 Lumbar radiculopathy, chronic chronic Right knee pain chronic Patellofemoral arthrosis acu te Thyroid nodule acute Polycystic ovarian syndrome acute Thyroid nodule acute Vaginitis acute Yeast infection involving th e vagina and surrounding area acute 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 Lumbar radiculopathy, chronic chronic Migraine with aura and without status migrainosus chronic Neuropathy chronic [facility] Work Phone: Evaluation note* Diagnosis Onset Date Resolution Status Polycystic ovarian syndrome acute Thyroid nodule acute Vaginitis acute Yeast infection involving th e vagina and surrounding area acute 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 Lumbar radiculopathy, chronic chronic Migraine with aura and without status migrainosus chronic Neuropathy chronic Palpitations acute [facility] Work Phone: Evaluation note* Diagnosis Onset Date Resolution Status 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 Lumbar radiculopathy, chronic chronic Migraine with aura and without status migrainosus chronic Neuropathy chronic Palpitations acute [facility] Work Phone: Evaluation note* Diagnosis Onset Date Resolution Status Thyroid nodule acute 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 Lumbar radiculopathy, chronic chronic Right knee pain chronic Patellofemoral arthrosis acu te Thyroid nodule acute Polycystic ovarian syndrome acute Thyroid nodule acute Vaginitis acute Yeast infection involving th e vagina and surrounding area acute [facility] Work Phone: Evaluation noteNo assessment information available [facility] Work Phone: Hospital Discharge instructionsAmbulatory Orders* Dermatology Location: None Selected [facility] Work Phone: Reason for referral (narrative)No reason for referral information available[facility] Work Phone: Chief Complaint and Reason for Visit Chief Complaint Admit Date 6 M FU March 21, 2025 2:57 pm 6 wk FU May 03, 2025 10 :42am Reason for Visit Admit Date Panic attacks March 21, 2025 2:57 pm Depression with anxiety March 21, 2025 2:57pm Chief Complaint 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) Reason for Visit Depression with anxi ety Obesity (BMI 30-39.9) Arthritis Acute pelvic pain, female Thyromegaly Encounter for routine gynecological examination Chief Complaint 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) PELVIC PAIN, THYROMEGALY Reason for Visit Depression with anxi ety Obesity (BMI 30-39.9) Arthritis Acute pelvic pain, female Thyromegaly Encounter for routine gynecological examination Chief Complaint 6 M FU Rash 3 M FU Reason for Visit Flu vaccine need Chronic diarrhea Chronic nasal congestion Depression with anxiety Hypersomnolence Lumbar radiculopathy, chronic Contact dermatitis and other eczema, due to unspecified cause Rash Chronic diarrhea Chronic nasal congestion Depression with anxiety Lumbar radiculopathy, chronic Chief Complaint 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) EORDERS Reason for Visit BMI 36.0-36.9,adult Other obesity Polycystic ovarian syndrome Thyroid nodule Thyromegaly Encounter for routine gynecological examination Chief Complaint 6 M FU 2 M FU nodules F/u thyroid US 3 M FU RIGHT KNEE Room 1 FNA Right Thyroid Nodule THYROID FNA/NODULE R Reason for Visit Polycystic ovarian s yndrome Depression with anxiety Change in skin mole BMI 36.0-36.9,adult Other obesity Polycystic ovarian syndrome Thyroid nodule Depression with anxiety Lumbar radiculopathy, chronic Right knee pain Patellofemoral arthrosis Thyroid nodule Chief Complaint 3 M FU RIGHT KNEE Room 1 FNA Right Thyroid Nodule THYROID FNA/NODULE R 3 m fu/PCOS/IUD removal DISCUSS SURGERY vaginal infection/irritation R KNEE PN/RX HERE 3 M FU Reason for Visit Depression with anxi ety Lumbar radiculopathy, chronic Right knee pain Patellofemoral arthrosis Thyroid nodule Polycystic ovarian syndrome Thyroid nodule Vaginitis Yeast infection involving the vagina and surrounding area Depression with anxiety Lumbar radiculopathy, chronic Migraine with aura and without status migrainosus Neuropathy Chief Complaint 3 m fu/PCOS/IUD ember amira DISCUSS SURGERY vaginal infection/irritation R KNEE PN/RX HERE 3 M FU ACUTE-LIGHTHEADENESS PALPITATIONS Reason for Visit Polycystic ovarian s yndrome Thyroid nodule Vaginitis Yeast infection involving the vagina and surrounding area Depression with anxiety Lumbar radiculopathy, chronic Migraine with aura and without status migrainosus Neuropathy Palpitations Chief Complaint 3 M FU ACUTE-LIGHTHEADENESS PALPITATIONS Reason for Visit Depression with anxi ety Lumbar radiculopathy, chronic Migraine with aura and without status migrainosus Neuropathy Palpitations Chief Complaint F/u thyroid US 3 M FU RIGHT KNEE Room 1 FNA Right Thyroid Nodule THYROID FNA/NODULE R 3 m fu/PCOS/IUD removal DISCUSS SURGERY vaginal infection/irritation R KNEE PN/RX HERE Reason for Visit Thyroid nodule Depression with anxiety Lumbar radiculopathy, chronic Right knee pain Patellofemoral arthrosis Thyroid nodule Polycystic ovarian syndrome Thyroid nodule Vaginitis Yeast infection involving the vagina and surrounding area Chief Complaint Admit Date SORE THROAT, EAR PAIN, BODY ACHES Dece er 2023 8:10am 6 M FU September 19, 2024 2: 58pm STRAIN OF LB,DORSALGIA/RX HERE December 3:30pm Reason for Visit Admit Date Pre-syncope September 19, 2024 2: 58pm Depression with anxiety September 19 2:58pm Lumbar radiculopathy, chronic September 2:58pm Chief Complaint Admit Date STRAIN OF LB,DORSALGIA/RX HERE December 3:30pm 6 M FU March 21, 2025 2:57 pm Chief Complaint Admit Date 6 M FU March 21, 2025 2:57 pm 6 wk FU May 03, 2025 10 :42am Hot flashes/hormone changes June 102024 1:43pm Reason for Visit Admit Date Panic attacks March 21, 2025 2:57 pm Depression with anxiety March 21, 2025 2:57pm Change in skin mole May 03, 2025 10 :42am Depression with anxiety May 03 10:42am Climacteric June 10, 2025 1:43pm Oligomenorrhea June 10, 2025 1:43pm Family History Relationship Condition Age at Onset Recorded Date/T rosa grandmother Malignant neoplasm of breast Unknown Arthritis Unknown mother Asthma Unknown Seizure Unknown father Migraine headache Unknown Relationship Condition Age at Onset Recorded Date/T rosa grandmother Malignant neoplasm of breast Unknown Arthritis Unknown Diabetes mellitus Unknown High blood cholesterol Unknown mother Asthma Unknown Seizure Unknown father Migraine headache Unknown Hypertension Unknown Advance Directives Advance Directive Response Recorded Date/ Time Living Will No September 03, 2 019 4:04pm Power of Quality Control Coordinator No September 03, 2019 4:04pm Advance Directive Response Recorded Date/ Time Living Will No September 03, 2 019 3:04pm Power of Quality Control Coordinator No September 03, 2019 3:04pm Advance Directive Response Recorded Date/ Time Living Will No August 22, 2 023 9:09am Power of Quality Control Coordinator No August 22, 2023 9:09am Advance Directive Response Recorded Date/ Time Living Will No August 22, 2 023 10:09am Power of Quality Control Coordinator No August 22, 2023 10:09am Advance Directive Response Recorded Date/ Time Living Will No August 22, 2 023 10:09am Do you have a Healthcare Power of Quality Control Coordinator? No August 22, 2023 10:09am Summary Purpose Additional Source Comments Goals (unrecognized section and content) Goals may be documented in a n alternate sectionGoals may be documented in an alternate sectionGoals may be documented in an alternate sectionGoals may be documented in an alternate sectionGoals may be documented in an alternate sectionGoals may be documented in an alternate sectionGoals may be documented in an alternate sectionGoals may be documented in an alternate sectionGoals may be documented in an alternate sectionGoals may be documented in an alternate sectionGoals may be documented in an alternate sectionGoals may be documented in an alternate sectionGoals may be documented in an alternate sectionGoals may be documented in an alternate section Source Comments (unrecognize d section and content) In the event this informatio n is protected by the Federal Confidentiality of Alcohol and Drug Abuse Patient Records regulations: The Federal rules restrict any use of the information to criminally investigate or prosecute any alcohol or drug abuse patient.[facility] Reason for Visit (unrecogniz ed section and content) Reason Comments Trauma Pt reported tick bit e (LT) upper thigh onset AM, redness on site, [place]. Care Teams (unrecognized sec tion and content) House Piping Inspector Relationship Specialty Start Date End Date Yee Bustamante PCP - General Family Medicine 09/19/16 Team Status: Active Member Role Status Dates Dr. Spenser Brown MD Family Provider Active Dr. Spenser Brown MD Primary Care Provider Active Team Status: Inactive Member Role Status Dates Dr. Spenser Brown MD Primary Care P gemini, Attending Provider, Referring Provider Active Team Status: Inactive Member Role Status Dates Dr. Spenser Brown MD Primary Care Provider, Refer ring Provider Active VALERIO Umana Attending Provider Active Team Status: Inactive Member Role Status Dates Dr. Spenser Brown MD Primary Care Provider, Refer ring Provider Active Dr. Abby Denson MD Attending Provider Active Team Status: Inactive Member Role Status Dates Dr. Spenser Brown MD Primary Care Provider Active Dr. Abby Denson MD Attending Provider, Referr ing Provider Active Team Status: Inactive Member Role Status Dates Dr. Spenser Brown MD Primary Care Provider, Refer ring Provider Active Dr. Nahid Amado MD Attending Provider Active Team Status: Inactive Member Role Status Dates Dr. Spenser Brown MD Primary Care Provider Active Dr. Nahid Amado MD Attending Provider, Referring Provider Active Team Status: Inactive Member Role Status Dates Dr. Spenser Brown MD Primary Care Provider, Refer ring Provider Active Dr. Lemuel Beauchamp DO Attending Provider Active Team Status: Inactive Member Role Status Dates Dr. Spenser Brown MD Primary Care Provider Active Dr. Declan Rowland MD Attending Provider Active Team Status: Inactive Member Role Status Dates Dr. Spenser Brown MD Primary Care Provider, Refer ring Provider Active Juanita Rolon CNM Attending Provider Active Team Status: Active Member Role Status Dates Dr. Spenser Brown MD Primary Care Provider Active Dr. Lemuel Beauchamp DO Attending Provider, Referring Provider Active Team Status: Inactive Member Role Status Dates Dr. Spenser Brown MD Primary Care Provider Active Juanita Rolon CNM Attending Provider, Referring Pr ovider Active Team Status: Inactive Member Role Status Dates Dr. Spenser Brown MD Primary Care Provider, Refer ring Provider Active ADRIENNE Matias Attending Provider Active Team Status: Inactive Member Role Status Dates Dr. Spenser Brown MD Primary Care Provider Active Narayan DELEON PA Attending Provider, Referring Prov ider Active Team Status: Inactive Member Role Status Dates Dr. Spenser Brown MD Primary Care Provider Active Start: September 11, 2024 End: September 11, 2024 Dr. Spenser Brown MD Referring Provider Active Start: September 11, 2024 End: September 11, 2024 ADRIENNE Ojeda Attending Provider Active Start: September 11, 2024 End: September 11, 2024 Team Status: Inactive Member Role Status Dates Dr. Spenser Brown MD Primary Care Provider Active Start: September 19, 2024 End: September 19, 2024 Dr. Spenser Brown MD Attending Provider Active Start: September 19, 2024 End: September 19, 2024 Dr. Spenser Brown MD Referring Provider Active Start: September 19, 2024 End: September 19, 2024 Team Status: Inactive Member Role Status Dates Dr. Spenser Brown MD Primary Care Provider Active Start: December 26, 2024 End: December 26, 2024 Dr. Enrrique Dewitt MD Attending Provider Active Start: December 26, 2024 End: December 26, 2024 Dr. Enrrique Dewitt MD Referring Provider Active Start: December 26, 2024 End: December 26, 2024 Team Status: Active Member Role/Relationship Status Dates Dr. Spenser Brown MD Family Provider Active Dr. Spenser Brown MD Primary Care Provider Active Team Status: Inactive Member Role/Relationship Status Dates Dr. Spenser Brown MD Primary Care Provider Active Start: December 26, 2024 End: December 26, 2024 Dr. Enrrique Dewitt MD Attending Provider Active Start: December 26, 2024 End: December 26, 2024 Dr. Enrrique Dewitt MD Referring Provider Active Start: December 26, 2024 End: December 26, 2024 Team Status: Inactive Member Role/Relationship Status Dates Dr. Spenser Brown MD Primary Care Provider Active Start: March 21, 2025 End: March 21, 2025 Dr. Spenser Brown MD Attending Provider Active Start: March 21, 2025 End: March 21, 2025 Dr. Spenser Brown MD Referring Provider Active Start: March 21, 2025 End: March 21, 2025 Team Status: Active Member Role/Relationship Status Dates Dr. Spenser Brown MD Primary Care Provider Active Start: March 21, 2025 Dr. Spenser Brown MD Attending Provider Active Start: March 21, 2025 Team Status: Inactive Member Role/Relationship Status Dates Dr. Spenser Brown MD Primary Care Provider Active Start: March 21, 2025 End: March 21, 2025 Dr. Spenser Brown MD Attending Provider Active Start: March 21, 2025 End: March 21, 2025 Team Status: Inactive Member Role/Relationship Status Dates Dr. Spenser Brown MD Primary Care Provider Active Start: March 21, 2025 End: March 21, 2025 Dr. Spenser Brown MD Attending Provider Active Start: March 21, 2025 End: March 21, 2025 Dr. Spenser Brown MD Referring Provider Active Start: March 21, 2025 End: March 21, 2025 Team Status: Inactive Member Role/Relationship Status Dates Dr. Spenser Brown MD Primary Care Provider Active Start: March 21, 2025 End: March 21, 2025 Dr. Spenser Brown MD Attending Provider Active Start: March 21, 2025 End: March 21, 2025 Team Status: Inactive Member Role/Relationship Status Dates Dr. Spenser Brown MD Primary Care Provider Active Start: May 03, 2025 End: May 03, 2025 Dr. Spenser Brown MD Attending Provider Active Start: May 03, 2025 End: May 03, 2025 Dr. Spenser Brown MD Referring Provider Active Start: May 03, 2025 End: May 03, 2025 Team Status: Active Member Role/Relationship Status Dates Dr. Spenser Brown MD Primary care physician Activ e Team Status: Inactive Member Role/Relationship Status Dates Dr. Spenser Brown MD Primary care physician Activ e Start: March 21, 2025 End: March 21, 2025 Dr. Spenser Brown MD Attending physician Active Start: March 21, 2025 End: March 21, 2025 Dr. Spenser Brown MD Referring Provider Active Start: March 21, 2025 End: March 21, 2025 Team Status: Inactive Member Role/Relationship Status Dates Dr. Spenser Brown MD Primary care physician Activ e Start: March 21, 2025 End: March 21, 2025 Dr. Spenser Brown MD Attending physician Active Start: March 21, 2025 End: March 21, 2025 Team Status: Inactive Member Role/Relationship Status Dates Dr. Spenser Brown MD Primary care physician Activ e Start: May 03, 2025 End: May 03, 2025 Dr. Spenser Brown MD Attending physician Active Start: May 03, 2025 End: May 03, 2025 Dr. Spenser Brown MD Referring Provider Active Start: May 03, 2025 End: May 03, 2025 Team Status: Inactive Member Role/Relationship Status Dates Dr. Spenser Brown MD Primary care physician Activ e Start: June 10, 2025 End: June 10, 2025 Dr. Spenser Brown MD Referring Provider Active Start: June 10, 2025 End: June 10, 2025 Dr. Abby Denson MD Attending physician Active Start: June 10, 2025 End: June 10, 2025 INFORMATION SOURCE (unrecogn ized section and content) DATE CREATED AUTHOR 10/05/2022 [facility] DATE CREATED AUTHOR AUTHOR'S ORGANIZ ATION 06/14/2025 [facility] FOR RECORDS PERTAINING TO PATIENTS WHO ARE [...] BE BASED ON THE PRIMARY CLINICAL RECORDS. [facility] [employer] [facility] provides no warranty or guarantee of the accuracy or completeness of information in this document.
[2025-06-29 09:49] LABS: Follicle Stimulating Hormone 5.9 mIU/mL
[2025-07-04 01:07] LABS: Anti-Mullerian Hormone,Serum 0.250 ng/mL (.)
== END | disposition home or self-care (01) ==
LOC: LAB 08:07
PROVIDERS: PCP Internal Medicine; Referring Provider Obstetrics & Gynecology; Visit Provider Obstetrics & Gynecology
DX: N95.1 Menopausal and female climacteric states (principal); Z13.1 Encounter for screening for diabetes mellitus
CPT/HCPCS: 36415; 82627; 82670; 83001; 83036; 83498; 83516; 84402; 84403; 82626